=== PATIENT | female | born 1940 | race Caucasian/White ===

== ENCOUNTER 2017-07-25 16:37 | Inpatient (IN) | payer OTHER ==
[~2017-07-25] VITALS: Ht 149.9 cm; Wt 50.0 kg
[~2017-07-25 16:37] MED LIST: CPR250 PO; MULTTAB58 PO; OMEG12006 PO; OMEP20TA PO; SYN75 PO
[2017-07-25] MEDS ORDERED: ONDANSETRON INJ 2 MG/ML 2 ML VIAL IV STA (16:57)
[2017-07-25] MEDS ORDERED: SODIUM CHLORIDE 0.9% 1000ML 1,000 ML IV STA (16:57)
--- NOTE | 2017-07-25 16:58 | EMERGENCY ROOM VISIT NOTE ---
History Report prepared by Maurice: William Jain Under the Supervision of: Stacie HobbsO. First contact with patient: 16:46 Chief Complaint: OTHER COMPLAINT Stated Complaint: DON'T FEEL WELL,BP FLUCTUATING, History of Present Illness The patient is a 77 year old female who presents to the Emergency Room with complaints of a persistent illness that started a few days ago. She says that she has been having chills, with intermittent nausea and shaking. She adds that she was noted to have a fever of 101 in the waiting room. The patient states that she has been having intermittent bilateral flank pain, which she describes as a pressure. She notes that each side has pain that comes on at different times. She says that she has not pain currently, and the last time she had flank pain was earlier this afternoon. The patient says that she thinks she has a virus, but Dr. Rodriguez sent her here because of her current thoracic aortic aneurysm and history of open heart surgery. She denies any cough, chest pain, urinary symptoms, or rashes. Source of History: patient Onset: A few days ago Position: other (global - illness) Timing: other (persistent) Associated Symptoms: + fevers, + chills, + nausea, No cough, No chest pain, No urinary symptoms, No rash Note: Associated symptoms: Shakes. Intermittent bilateral flank pain. Review of Systems See HPI for pertinent positives & negatives. A total of 10 systems reviewed and were otherwise negative. Past Medical & Surgical Medical Problems: (1) Beta-liane intolerance (2) Compression fracture of L1 lumbar vertebra (3) Coronary artery disease (4) Diabetes mellitus type II, controlled (5) Dyslipidemia (6) GERD (gastroesophageal reflux disease) (7) HTN (hypertension) (8) Hypothyroidism (9) Thoracic aneurysm Surgical Problems: (1) H/O hemorrhoidectomy (2) H/O: hysterectomy (3) S/P AAA repair (4) S/P CABG x 3 (5) S/P cholecystectomy Family History Diabetes mellitus FH: heart disease Hypertension Social History Smoking Status: Former Smoker Drug Use: none Marital Status: Occupation Status: employed Current/Historical Medications Scheduled Aspirin (Aspirin), 81 MG PO QAM Calcium Carbonate-Vitamin D (Calcium), 1 TAB PO DAILY Cholecalciferol (Vitamin D 1000 Unit), 1,000 INTER.UNIT PO DAILY Coenzyme Q10 (Ubidecarenone) (Coenzyme Q-10), 100 MG PO QAM Cranberry (Vaccinium Macrocarp (Cranberry), 1,000 MG PO QAM Glucosamine Hydrochloride (Glucosamine Hcl), 1,500 MG PO BID Levothyroxine Sodium (Synthroid), 75 MCG PO QAM Lisinopril (Zestril), 5 MG PO HS Multiple Vitamin (Multivitamin), 1 TABLET PO QAM [place]-3 Fatty Acids ([place] 3), 1 CAPSULE PO BID Omeprazole (Omeprazole), 20 MG PO HS Pravastatin Sodium (Pravastatin Sodium), 80 MG PO HS Probiotic Product (Probiotic), 1 CAP PO DAILY Scheduled PRN Nitroglycerin (Nitrostat), 0.4 MG UT UD PRN for Chest Pain Allergies Coded Allergies: Amlodipine (Verified Allergy, Mild, WEAKNESS, DIZZINESS & SOB, 08/19/16) WEAKNESS, DIZZINESS Penicillins (Verified Allergy, Unknown, TONGUE FEELS FUZZY, 08/19/16) Metoprolol (Verified Adverse Reaction, Mild, WEAKNESS, DIZZINESS, 08/19/16 ) Carvedilol (Verified Adverse Reaction, Unknown, WEAKNESS, DIZZINESS, 08/19) Fluticasone (Unverified Adverse Reaction, Unknown, "PAIN IN MY HEART", ) Gemfibrozil (Verified Adverse Reaction, Unknown, MUSCLE WEAKNESS, 08/19/16 ) MUSCLE WEAKNESS Hydralazine (Verified Adverse Reaction, Unknown, WEAKNESS, DIZZINESS, ) Salmeterol (Unverified Adverse Reaction, Unknown, "PAIN IN MY HEART", ) Statins (Verified Adverse Reaction, Unknown, MUSCLE WEAKNESS, 08/19/16) Physical Exam Vital Signs Date Time Temp Pulse Resp B/P (MAP) Pulse Ox O2 Delivery O2 Flow Rate FiO2 07/25/17 19:04 83 20 141/70 95 Room Air 07/25/17 18:06 80 07/25/17 16:39 37.9 106 20 118/79 91 Room Air Physical Exam GENERAL: Patient is awake, alert, and in no acute distress. Patient is resting comfortably and showing no signs of anxiety EYES: The conjunctivae are clear. The pupils are round and reactive. EARS, NOSE, MOUTH AND THROAT: The nose is without any evidence of any deformity. Mucous membranes are moist tongue is midline NECK: The neck is nontender and supple. RESPIRATORY: Lung sounds were diminished throughout. No tachypnea or conversational dyspnea noted. CARDIOVASCULAR: Regular rate and rhythm noted there no murmurs rubs or gallops normal S1 normal S2 GASTROINTESTINAL: The abdomen is soft. Bowel sounds are present in all quadrants. Abdomen is nontender BACK: No midline tenderness or or step-off noted range of motion in flexion extension as well as rotation no signs of muscle spasm noted MUSCULOSKELETAL/EXTREMITIES: There is no evidence of gross deformity full range of motion is noted in the hips and shoulders SKIN: There is no obvious evidence of any rash. There are no petechiae, pallor or cyanosis noted. NEUROLOGIC: Patient is awake alert and oriented x3 strength is symmetric patellar reflexes are 2+ bilaterally Medical Decision & Procedures ER Provider Diagnostic Interpretation: Radiology results as stated below per my review and radiologist interpretation: CHEST ONE VIEW PORTABLE CLINICAL HISTORY: ABDOMINAL PAIN/GI pain COMPARISON STUDY: 11/18/2013 FINDINGS: Prior median sternotomy. Lungs are clear. Diaphragms are smooth. IMPRESSION: No acute process. The above report was generated using voice recognition software. It may contain grammatical, syntax or spelling errors. Electronically signed by: Gerber Flores M.D. 07/25/2017 5:19 PM Dictated Date/Time: 07/25/2017 5:19 PM ABD/PELVIS NO IV OR ORAL CONT CLINICAL HISTORY: 77 years-old Female presenting with flank pain. TECHNIQUE: Multidetector CT of the abdomen and pelvis was performed without the use of intravenous contrast. IV contrast: None. A dose lowering technique was used consistent with the principles of ALARA (as low as reasonably achievable). COMPARISON: 08/19/2016. CT DOSE (mGy.cm): The estimated cumulative dose is 257.20 mGy.cm. FINDINGS: [employer] topogram: Cholecystectomy clips noted. Lung bases: Dependent and basilar predominant emphysematous changes. Normal heart size. Coronary artery calcification. No pericardial or pleural effusion. Liver: Normal morphology. Normal density. Biliary: No gross biliary ductal dilatation allowing for noncontrast technique. Gallbladder surgically absent. Pancreas: Normal noncontrast appearance. Spleen: Normal noncontrast appearance. Splenule noted. Adrenal glands: Normal noncontrast appearance. Kidneys and ureters: Left perinephric fat stranding new from prior. Mild distention of the left renal collecting system. No gross evidence of an obstructing ureteral calculus. No renal calculi. Bladder: Incompletely evaluated secondary to underdistention. Pelvic organs: Uterus surgically absent. No adnexal masses. Bowel: Diverticulosis of the sigmoid colon. A portion of the antimesenteric wall of the transverse colon is herniated through a wide neck ventral hernia in the epigastrium. No bowel wall thickening or evidence of obstruction. Normal appendix. Small hiatal hernia. Peritoneal cavity: No free fluid or intraperitoneal gas. Vasculature: The descending thoracic aorta is dilated up to the level of the hiatus. This measures 3.8 cm in maximal transverse dimension, previously 4.0 cm when remeasured at a comparable level. Displacement of intimal calcifications is consistent with chronic dissection as seen on prior exam. Postsurgical repair of the infrarenal aorta and common iliac arteries with bilateral iliofemoral bypass grafts would be better visualized with intravenous contrast. Lymph nodes: No gross lymphadenopathy allowing for noncontrast technique. Prominent upper abdominal subcentimeter lymph nodes, possibly reactive. Abdominal wall: Fat and small bowel containing lower ventral midline hernia in addition to the Harrington-type hernia of transverse colon in the epigastrium. Musculoskeletal: Degenerative changes of the spine. Anterior vertebral body height loss of L1 consistent with a compression deformity. Mild osteopenia. This has progressed from prior exam. IMPRESSION: 1. Interval progression of a compression deformity of L1 in setting of mild osteopenia. 2. Left perinephric fat stranding and mild distention of the left renal collecting system without evidence of an obstructing calculus. Given the absence of a renal calculus seen on prior CT, these findings are most concerning for pyelonephritis. This is not well evaluated in the absence of intravenous contrast. 3. Aneurysmal dilatation of the descending thoracic aorta, not enlarged from prior exam. 4. Bilateral iliofemoral bypass grafts would be better evaluated with intravenous contrast. 5. Diverticulosis. No diverticulitis. 6. Multiple ventral hernias without evidence of bowel obstruction. 7. Basilar emphysema. Electronically signed by: Jamal Russell M.D. 07/25/2017 5:53 PM Dictated Date/Time: 07/25/2017 5:41 PM Laboratory Results 07/25/17 17:20 Red Blood Count 4.31, Mean Corpuscular Volume 94.4, Mean Corpuscular Hemoglobin 32.3, Mean Corpuscular Hemoglobin Concent 34.2, Mean Platelet Volume 9.5, Neutrophils (%) (Auto) 81.4, Lymphocytes (%) (Auto) 7.0, Monocytes (%) (Auto) 11.0, Eosinophils (%) (Auto) 0.3, Basophils (%) (Auto) 0.1, Neutrophils # (Auto ) 11.82, Lymphocytes # (Auto) 1.02, Monocytes # (Auto) 1.60, Eosinophils # (Auto ) 0.04, Basophils # (Auto) 0.02 07/25/17 17:20 Test 07/25/17 17:20 07/25/17 17:25 White Blood Count 14.53 K/uL (4.8-10.8) Red Blood Count 4.31 M/uL (4.2-5.4) Hemoglobin 13.9 g/dL (12.0-16.0) Hematocrit 40.7 % (37-47) Mean Corpuscular Volume 94.4 fL (80-100) Mean Corpuscular Hemoglobin 32.3 pg (25-34) Mean Corpuscular Hemoglobin Concent 34.2 g/dl (32-36) Platelet Count 223 K/uL (130-400) Mean Platelet Volume 9.5 fL (7.4-10.4) Neutrophils (%) (Auto) 81.4 % Lymphocytes (%) (Auto) 7.0 % Monocytes (%) (Auto) 11.0 % Eosinophils (%) (Auto) 0.3 % Basophils (%) (Auto) 0.1 % Neutrophils # (Auto) 11.82 K/uL (1.4-6.5) Lymphocytes # (Auto) 1.02 K/uL (1.2-3.4) Monocytes # (Auto) 1.60 K/uL (0.11-0.59) Eosinophils # (Auto) 0.04 K/uL (0-0.5) Basophils # (Auto) 0.02 K/uL (0-0.2) RDW Standard Deviation 46.7 fL (36.4-46.3) RDW Coefficient of Variation 13.5 % (11.5-14.5) Immature Granulocyte % (Auto) 0.2 % Immature Granulocyte # (Auto) 0.03 K/uL (0.00-0.02) Prothrombin Time 11.9 SECONDS (9.0-12.0) Prothromb Time International Ratio 1.1 (0.9-1.1) Activated Partial Thromboplast Time 30.3 SECONDS (21.0-31.0) Partial Thromboplastin Ratio 1.2 Anion Gap 9.0 mmol/L (3-11) Est Creatinine Clear Calc Drug Dose 31.6 ml/min Estimated GFR () 62.5 Estimated GFR (Non- 53.9 BUN/Creatinine Ratio 17.2 (10-20) Calcium Level 9.3 mg/dl (8.5-10.1) Magnesium Level 2.4 mg/dl (1.8-2.4) Total Bilirubin 0.8 mg/dl (0.2-1) Direct Bilirubin 0.2 mg/dl (0-0.2) Aspartate Amino Transf (AST/SGOT) 19 U/L (15-37) Alanine Aminotransferase (ALT/SGPT) 17 U/L (12-78) Alkaline Phosphatase 101 U/L (45-117) Total Creatine Kinase 86 U/L (26-192) Creatine Kinase MB 0.6 ng/ml (0.5-3.6) Creatine Kinase MB Ratio 0.7 (0-3.0) Troponin I < 0.015 ng/ml (0-0.045) Total Protein 7.7 gm/dl (6.4-8.2) Albumin 3.5 gm/dl (3.4-5.0) Lipase 152 U/L (73-393) Urine Color YELLOW Urine Appearance CLOUDY (CLEAR) Urine pH 5.5 (4.5-7.5) Urine Specific [place] 1.023 (1.000-1.030) Urine Protein 2+ (NEG) Urine Glucose (UA) NEG (NEG) Urine Ketones TRACE (NEG) Urine Occult Blood 2+ (NEG) Urine Nitrite POS (NEG) Urine Bilirubin NEG (NEG) Urine Urobilinogen NEG (NEG) Urine Leukocyte Esterase MODERATE (NEG) Urine WBC (Auto) >30 /hpf (0-5) Urine RBC (Auto) 10-30 /hpf (0-4) Urine Hyaline Casts (Auto) 1-5 /lpf (0-5) Urine Epithelial Cells (Auto) 10-20 /lpf (0-5) Urine Bacteria (Auto) 4+ (NEG) Laboratory results per my review. Medications Administered Medications (Trade) Dose Ordered Sig/Adolfo Route Start Time Stop Time Status Last Admin Dose Admin Sodium Chloride 1,000 ml @ 999 mls/hr Q1H1M STAT IV 07/25/17 16:57 07/25/17 17:57 DC 07/25/17 17:28 999 MLS/HR Ondansetron HCl (Zofran Inj) 4 mg NOW STAT IV 07/25/17 16:57 07/25/17 16:59 DC 07/25/17 17:28 4 MG Levofloxacin (Levaquin / D5W) 750 mg NOW STAT IV 07/25/17 18:10 07/25/17 18:12 DC 07/25/17 18:16 750 MG ECG Indication: nausea Rate (beats per minute): 89 Rhythm: normal sinus Findings: no ectopy, other (no acute ST segment abnormalities) Change: no significant change (from August 21 2016) ED Course 1651: The patient was evaluated in room B2. A complete history and physical examination were performed. 165: Ordered Zofran Inj 4 mg IV, NSS 1000 ml @ 999 mls/hr IV. 1809: Ordered Levaquin / D5W 750 mg IV. 1850: I reevaluated the patient and she is resting. The patient verbally expressed understanding and agreement with the treatment plan. The patient will be evaluated for further treatment. 1854: I discussed the patient with Dr. Dago Carlos director [employer]. She will evaluate the patient for further treatment. Medical Decision Differential diagnosis: Etiologies such as metabolic, infection, hypo/hyperglycemia, electrolyte abnormalities, cardiac sources, intracerebral event, toxicologic, neurologic, as well as others were entertained. Nursing notes reviewed. The patient is a 77-year-old female who presented to the emergency department for an evaluation of chills and low-grade fever. The patient states that she's been feeling weak and did not feel well over the last 24 hours. The patient states that she has had difficulty urinating and felt as though she was drinking more fluids than usual. The patient did not have a surgical abdomen on physical exam. The patient had a low-grade fever. The patient was found have an elevated white blood cell count as well as signs of urinary tract infection on urinalysis. Because of her symptoms and her back pain a CT the abdomen and pelvis was obtained. This did reveal signs of pyelonephritis. The patient was given IV fluids and IV antibiotics the emergency department. She was reevaluated multiple times. The patient's age and comorbidities I was concerned that she may have a complicated pyelonephritis. For this reason I discussed her case with the on-call [facility] hospitalist group. They've agreed to evaluate the patient in the emergency department for further management and disposition. Medication Reconcilliation Current Medication List: was personally reviewed by me Blood Pressure Screening Patient's blood pressure: Normal blood pressure Consults Time Called: 1849 Consulting Physician: Dr. Dago Carlos director [employer] Returned Call: 1853 I discussed the patient with Dr. Dago Carlos director [employer]. She will evaluate the patient for further treatment. Impression Primary Impression: Pyelonephritis Additional Impressions: Fever Weakness Scribe Attestation The scribe's documentation has been prepared under my direction and personally reviewed by me in its entirety. I confirm that the note above accurately reflects all work, treatment, procedures, and medical decision making performed by me. Departure Information Dispostion Being Evaluated By Hospitalist Referrals Raza Rodriguez D.O. (PCP) Patient Instructions My [facility] Problem Qualifiers Additional Impressions: Fever Fever type: unspecified Qualified Codes: R50.9 - Fever, unspecified
--- NOTE | 2017-07-25 17:21 | DIAGNOSTIC IMAGING REPORT ---
CHEST ONE VIEW PORTABLE CLINICAL HISTORY: ABDOMINAL PAIN/GI pain COMPARISON STUDY: 11/18/2013 FINDINGS: Prior median sternotomy. Lungs are clear. Diaphragms are smooth. IMPRESSION: No acute process. The above report was generated using voice recognition software. It may contain grammatical, syntax or spelling errors. Electronically signed by: Gerber Flores M.D. 07/25/2017 5:19 PM Dictated Date/Time: 07/25/2017 5:19 PM
[2017-07-25] MEDS ORDERED: COEN100C2 PO (17:23)
[2017-07-25] MEDS ORDERED: GLUC1TAB33 PO (17:23)
[2017-07-25] MEDS ORDERED: NTRGSL/4 UT (17:23)
[2017-07-25] MEDS ORDERED: LISI-729 PO (17:23)
[2017-07-25] MEDS ORDERED: CRAN500C2 PO (17:23)
[2017-07-25] MEDS ORDERED: ASPI1TAB83 PO (17:23)
[2017-07-25] MEDS ORDERED: PRAV80TA2 PO (17:23)
[2017-07-25 17:31] LABS: BASO % 0.1 %; BASO ABS # 0.02 K/uL (0-0.2); COMPLETE YES; EOS % 0.3 %; HEMATOCRIT 40.7 % (37-47); IG% 0.2 %; LYMPH ABS # 1.02 K/uL (1.2-3.4); MEAN CELL VOLUME 94.4 fL (80-100); MEAN CORPUSCULAR HEMOGLOBIN 32.3 pg (25-34); MEAN CORPUSCULAR HGB CONC 34.2 g/dl (32-36); MEAN PLATELET VOLUME 9.5 fL (7.4-10.4); NEUT % 81.4 %; PLATELET COUNT 223 K/uL (130-400); RED BLOOD COUNT 4.31 M/uL (4.2-5.4); WHITE BLOOD COUNT 14.53 K/uL (4.8-10.8)
[2017-07-25 17:43] LABS: INR 1.1 (0.9-1.1); PARTIAL THROMBOPLASTIN RATIO 1.2; PROTHROMBIN TIME (PATIENT) 11.9 SECONDS (9.0-12.0)
[2017-07-25 17:50] LABS: ALT/SGPT 17 U/L (12-78); BLOOD UREA NITROGEN 17 mg/dl (7-18); BUN/CREATININE RATIO 17.2 (10-20); CALCIUM 9.3 mg/dl (8.5-10.1); CARBON DIOXIDE 26 mmol/L (21-32); CHLORIDE 98 mmol/L (98-107); GLUCOSE 123 mg/dl (70-99); MAGNESIUM 2.4 mg/dl (1.8-2.4); POTASSIUM 3.7 mmol/L (3.5-5.1); SODIUM 133 mmol/L (136-145)
[2017-07-25 17:53] LABS: ALKALINE PHOSPHATASE 101 U/L (45-117); AST/SGOT 19 U/L (15-37); CKMB/CK RATIO 0.7 (0-3.0)
[2017-07-25 17:54] LABS: URINE APPEARANCE CLOUDY (CLEAR); URINE BILIRUBIN NEG (NEG); URINE COLOR YELLOW; URINE NITRITE POS (NEG); URINE PH 5.5 (4.5-7.5); URINE SPECIFIC GRAVITY 1.023 (1.000-1.030); UROBILINOGEN NEG (NEG)
--- NOTE | 2017-07-25 17:55 | DIAGNOSTIC IMAGING REPORT ---
ABD/PELVIS NO IV OR ORAL CONT CLINICAL HISTORY: 77 years-old Female presenting with flank pain. TECHNIQUE: Multidetector CT of the abdomen and pelvis was performed without the use of intravenous contrast. IV contrast: None. A dose lowering technique was used consistent with the principles of ALARA (as low as reasonably achievable). COMPARISON: 08/19/2016. CT DOSE (mGy.cm): The estimated cumulative dose is 257.20 mGy.cm. FINDINGS: [employer] topogram: Cholecystectomy clips noted. Lung bases: Dependent and basilar predominant emphysematous changes. Normal heart size. Coronary artery calcification. No pericardial or pleural effusion. Liver: Normal morphology. Normal density. Biliary: No gross biliary ductal dilatation allowing for noncontrast technique. Gallbladder surgically absent. Pancreas: Normal noncontrast appearance. Spleen: Normal noncontrast appearance. Splenule noted. Adrenal glands: Normal noncontrast appearance. Kidneys and ureters: Left perinephric fat stranding new from prior. Mild distention of the left renal collecting system. No gross evidence of an obstructing ureteral calculus. No renal calculi. Bladder: Incompletely evaluated secondary to underdistention. Pelvic organs: Uterus surgically absent. No adnexal masses. Bowel: Diverticulosis of the sigmoid colon. A portion of the antimesenteric wall of the transverse colon is herniated through a wide neck ventral hernia in the epigastrium. No bowel wall thickening or evidence of obstruction. Normal appendix. Small hiatal hernia. Peritoneal cavity: No free fluid or intraperitoneal gas. Vasculature: The descending thoracic aorta is dilated up to the level of the hiatus. This measures 3.8 cm in maximal transverse dimension, previously 4.0 cm when remeasured at a comparable level. Displacement of intimal calcifications is consistent with chronic dissection as seen on prior exam. Postsurgical repair of the infrarenal aorta and common iliac arteries with bilateral iliofemoral bypass grafts would be better visualized with intravenous contrast. Lymph nodes: No gross lymphadenopathy allowing for noncontrast technique. Prominent upper abdominal subcentimeter lymph nodes, possibly reactive. Abdominal wall: Fat and small bowel containing lower ventral midline hernia in addition to the Harrington-type hernia of transverse colon in the epigastrium. Musculoskeletal: Degenerative changes of the spine. Anterior vertebral body height loss of L1 consistent with a compression deformity. Mild osteopenia. This has progressed from prior exam. IMPRESSION: 1. Interval progression of a compression deformity of L1 in setting of mild osteopenia. 2. Left perinephric fat stranding and mild distention of the left renal collecting system without evidence of an obstructing calculus. Given the absence of a renal calculus seen on prior CT, these findings are most concerning for pyelonephritis. This is not well evaluated in the absence of intravenous contrast. 3. Aneurysmal dilatation of the descending thoracic aorta, not enlarged from prior exam. 4. Bilateral iliofemoral bypass grafts would be better evaluated with intravenous contrast. 5. Diverticulosis. No diverticulitis. 6. Multiple ventral hernias without evidence of bowel obstruction. 7. Basilar emphysema. Electronically signed by: Jamal Russell M.D. 07/25/2017 5:53 PM Dictated Date/Time: 07/25/2017 5:41 PM
[2017-07-25 17:59] LABS: MANUAL MICROSCOPIC REQUIRED? NO; REVIEW REQ? NO
[2017-07-25] MEDS ORDERED: LEVAQUIN 750MG / 150ML D5W IV STA (18:10)
[2017-07-25] MEDS ORDERED: CHOL100027 PO (18:49)
[2017-07-25] MEDS ORDERED: MISCCAP80 PO (18:49)
[2017-07-25] MEDS ORDERED: CALC-51 PO (18:49)
--- NOTE | 2017-07-25 19:23 | History and Physical ---
History & Physical Date & Time of Service: Jul 25, 2017 at 19:23 . Chief Complaint: fever, chills . Primary Care Physician: Raza Rodriguez D.O. . History of Present Illness Source: patient, family, clinic records, hospital records 77 [address]O female followed by Dr. Rodriguez. History of ischemic heart disease, hypertension, and other problems noted below. She was in her usual state of health until 2 days prior to admission when she developed low grade fever and chills. No headache, cough, nausea, vomiting, diarrhea, dysuria, hematuria, flank pain. [place] worse this morning and checked her BP and pulse at home. Pulse rate was running relatively high for her (80's - 90's) and BP was fluctuating. She called the clinic and was referred to the ED for evaluation. . Past Medical/Surgical History Chronic and Resolved Medical Problems: (1) Beta-liane intolerance Status: Chronic (2) Coronary artery disease Permanent Comment: s/p cabg x 3 Status: Chronic (3) Diabetes mellitus type II, controlled Permanent Comment: diet controlled Status: Chronic (4) Dyslipidemia Status: Chronic (5) GERD (gastroesophageal reflux disease) Status: Chronic (6) HTN (hypertension) Status: Chronic (7) Hypothyroidism Status: Chronic (8) Thoracic aneurysm Status: Chronic Surgical Problems: (1) H/O hemorrhoidectomy Status: Resolved (2) H/O: hysterectomy Status: Resolved (3) S/P AAA repair Status: Resolved (4) S/P CABG x 3 Status: Resolved (5) S/P cholecystectomy Status: Resolved . Family History Diabetes mellitus FH: heart disease Hypertension Social History Smoking Status: Former Smoker Alcohol Use: none Drug Use: none Marital Status: Housing status: lives with significant other Occupational Status: employed Immunizations History of Influenza Vaccine: Yes Influenza Vaccine Date: Aug 03, 2013 History of Tetanus Vaccine?: Unknown Tetanus Immunization Date: Jan 21, 2008 History of Pneumococcal: UNSURE OF DATE Pneumococcal Date: Jan 21, 2008 History of Hepatitis B Vaccine: Unknown Multi-Drug Resistant Organisms History of MDRO: No Allergies Coded Allergies: Amlodipine (Verified Allergy, Mild, WEAKNESS, DIZZINESS & SOB, 08/19/16) WEAKNESS, DIZZINESS Penicillins (Verified Allergy, Unknown, TONGUE FEELS FUZZY, 08/19/16) Metoprolol (Verified Adverse Reaction, Mild, WEAKNESS, DIZZINESS, 08/19/16 ) Carvedilol (Verified Adverse Reaction, Unknown, WEAKNESS, DIZZINESS, 08/19) Fluticasone (Unverified Adverse Reaction, Unknown, "PAIN IN MY HEART", ) Gemfibrozil (Verified Adverse Reaction, Unknown, MUSCLE WEAKNESS, 08/19/16 ) MUSCLE WEAKNESS Hydralazine (Verified Adverse Reaction, Unknown, WEAKNESS, DIZZINESS, ) Salmeterol (Unverified Adverse Reaction, Unknown, "PAIN IN MY HEART", ) Statins (Verified Adverse Reaction, Unknown, MUSCLE WEAKNESS, 08/19/16) Home Medications Scheduled Aspirin (Aspirin), 81 MG PO QAM Calcium Carbonate-Vitamin D (Calcium), 1 TAB PO DAILY Cholecalciferol (Vitamin D 1000 Unit), 1,000 INTER.UNIT PO DAILY Coenzyme Q10 (Ubidecarenone) (Coenzyme Q-10), 100 MG PO QAM Cranberry (Vaccinium Macrocarp (Cranberry), 1,000 MG PO QAM Glucosamine Hydrochloride (Glucosamine Hcl), 1,500 MG PO BID Levothyroxine Sodium (Synthroid), 75 MCG PO QAM Lisinopril (Zestril), 5 MG PO DAILY Multiple Vitamin (Multivitamin), 1 TABLET PO QAM [place]-3 Fatty Acids ([place] 3), 1 CAPSULE PO BID Omeprazole (Omeprazole), 20 MG PO HS Pravastatin Sodium (Pravastatin Sodium), 80 MG PO HS Probiotic Product (Probiotic), 1 CAP PO DAILY Scheduled PRN Nitroglycerin (Nitrostat), 0.4 MG UT UD PRN for Chest Pain Review of Systems Constitutional: + fever, + chills, + weight loss (about 20 lbs) Eyes: No worsening of vision, No diplopia ENT: + sore throat (mild), No nasal symptoms Respiratory: + cough (rare), No shortness of breath Cardiovascular: No chest pain, No edema Abdomen: No pain, No nausea, No vomiting, No diarrhea, No GI bleeding Musculoskeletal: No joint pain Genitourinary - Female: No dysuria, No hematuria Endocrine: No excessive thirst Hematologic / Lymphatic: + abnormal bleeding/bruising, No swollen lymph nodes Integumentary: No rash, No new/changing skin lesions Physical Exam Vital Signs Date Time Temp Pulse Resp B/P (MAP) Pulse Ox O2 Delivery O2 Flow Rate FiO2 07/25/17 19:04 83 20 141/70 95 Room Air 07/25/17 18:06 80 07/25/17 16:39 37.9 106 20 118/79 91 Room Air General Appearance: WD/WN, no apparent distress Head: normocephalic, atraumatic Eyes: normal inspection, PERRL, EOMI, sclerae normal (conjunctivae pink) ENT: hearing grossly normal, pharynx normal, + pertinent finding (upper and lower dentures) Neck: supple, no adenopathy, thyroid normal, no JVD, trachea midline Respiratory/Chest: lungs clear, no respiratory distress, no accessory muscle use Cardiovascular: regular rate, rhythm, no edema, no gallop, no JVD, no murmur, normal peripheral pulses Abdomen/GI: normal bowel sounds, non tender, soft, no organomegaly Back: no CVA tenderness Extremities/Musculoskelatal: normal inspection, no calf tenderness, normal capillary refill, no pedal edema Neurologic/Psych: machine 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-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 nml as tested (PERRL, EOMI, no facial palsy, no dysarhtria), no motor/sensory deficits, alert, normal mood/affect, normal reflexes, oriented x 3 Skin: normal color, warm/dry, no rash Lymphatic: no adenopathy (cervical) Diagnostics Laboratory Results Results Past 24 Hours Test 07/25/17 17:20 07/25/17 17:25 Range/Units White Blood Count 14.53 4.8-10.8 K/uL Red Blood Count 4.31 4.2-5.4 M/uL Hemoglobin 13.9 12.0-16.0 g/dL Hematocrit 40.7 37-47 % Mean Corpuscular Volume 94.4 80-100 fL Mean Corpuscular Hemoglobin 32.3 25-34 pg Mean Corpuscular Hemoglobin Concent 34.2 32-36 g/dl Platelet Count 223 130-400 K/uL Mean Platelet Volume 9.5 7.4-10.4 fL Neutrophils (%) (Auto) 81.4 % Lymphocytes (%) (Auto) 7.0 % Monocytes (%) (Auto) 11.0 % Eosinophils (%) (Auto) 0.3 % Basophils (%) (Auto) 0.1 % Neutrophils # (Auto) 11.82 1.4-6.5 K/uL Lymphocytes # (Auto) 1.02 1.2-3.4 K/uL Monocytes # (Auto) 1.60 0.11-0.59 K/uL Eosinophils # (Auto) 0.04 0-0.5 K/uL Basophils # (Auto) 0.02 0-0.2 K/uL RDW Standard Deviation 46.7 36.4-46.3 fL RDW Coefficient of Variation 13.5 11.5-14.5 % Immature Granulocyte % (Auto) 0.2 % Immature Granulocyte # (Auto) 0.03 0.00-0.02 K/uL Prothrombin Time 11.9 9.0-12.0 SECONDS Prothromb Time International Ratio 1.1 0.9-1.1 Activated Partial Thromboplast Time 30.3 21.0-31.0 SECONDS Partial Thromboplastin Ratio 1.2 Sodium Level 133 136-145 mmol/L Potassium Level 3.7 3.5-5.1 mmol/L Chloride Level 98 98-107 mmol/L Carbon Dioxide Level 26 21-32 mmol/L Anion Gap 9.0 3-11 mmol/L Blood Urea Nitrogen 17 7-18 mg/dl Creatinine 1.00 0.60-1.20 mg/dl Est Creatinine Clear Calc Drug Dose 31.6 ml/min Estimated GFR () 62.5 Estimated GFR (Non- 53.9 BUN/Creatinine Ratio 17.2 10-20 Random Glucose 123 70-99 mg/dl Calcium Level 9.3 8.5-10.1 mg/dl Magnesium Level 2.4 1.8-2.4 mg/dl Total Bilirubin 0.8 0.2-1 mg/dl Direct Bilirubin 0.2 0-0.2 mg/dl Aspartate Amino Transf (AST/SGOT) 19 15-37 U/L Alanine Aminotransferase (ALT/SGPT) 17 12-78 U/L Alkaline Phosphatase 101 45-117 U/L Total Creatine Kinase 86 26-192 U/L Creatine Kinase MB 0.6 0.5-3.6 ng/ml Creatine Kinase MB Ratio 0.7 0-3.0 Troponin I < 0.015 0-0.045 ng/ml Total Protein 7.7 6.4-8.2 gm/dl Albumin 3.5 3.4-5.0 gm/dl Lipase 152 73-393 U/L Urine Color YELLOW Urine Appearance CLOUDY CLEAR Urine pH 5.5 4.5-7.5 Urine Specific [place] 1.023 1.000-1.030 Urine Protein 2+ NEG Urine Glucose (UA) NEG NEG Urine Ketones TRACE NEG Urine Occult Blood 2+ NEG Urine Nitrite POS NEG Urine Bilirubin NEG NEG Urine Urobilinogen NEG NEG Urine Leukocyte Esterase MODERATE NEG Urine WBC (Auto) >30 0-5 /hpf Urine RBC (Auto) 10-30 0-4 /hpf Urine Hyaline Casts (Auto) 1-5 0-5 /lpf Urine Epithelial Cells (Auto) 10-20 0-5 /lpf Urine Bacteria (Auto) 4+ NEG Microbiology Results 07/25/17 Urine Culture, Received Pending Diagnostic Radiology CHEST ONE VIEW PORTABLE FINDINGS: Prior median sternotomy. Lungs are clear. Diaphragms are smooth. IMPRESSION: No acute process. The above report was generated using voice recognition software. It may contain grammatical, syntax or spelling errors. Electronically signed by: Gerber Flores M.D. 07/25/2017 5:19 PM Dictated Date/Time: 07/25/2017 5:19 PM ABD/PELVIS NO IV OR ORAL CONT FINDINGS: Wrapper Leaf Inspector topogram: Cholecystectomy clips noted. Lung bases: Dependent and basilar predominant emphysematous changes. Normal heart size. Coronary artery calcification. No pericardial or pleural effusion. Liver: Normal morphology. Normal density. Biliary: No gross biliary ductal dilatation allowing for noncontrast technique. Gallbladder surgically absent. Pancreas: Normal noncontrast appearance. Spleen: Normal noncontrast appearance. Splenule noted. Adrenal glands: Normal noncontrast appearance. Kidneys and ureters: Left perinephric fat stranding new from prior. Mild distention of the left renal collecting system. No gross evidence of an obstructing ureteral calculus. No renal calculi. Bladder: Incompletely evaluated secondary to underdistention. Pelvic organs: Uterus surgically absent. No adnexal masses. Bowel: Diverticulosis of the sigmoid colon. A portion of the antimesenteric wall of the transverse colon is herniated through a wide neck ventral hernia in the epigastrium. No bowel wall thickening or evidence of obstruction. Normal appendix. Small hiatal hernia. Peritoneal cavity: No free fluid or intraperitoneal gas. Vasculature: The descending thoracic aorta is dilated up to the level of the hiatus. This measures 3.8 cm in maximal transverse dimension, previously 4.0 cm when remeasured at a comparable level. Displacement of intimal calcifications is consistent with chronic dissection as seen on prior exam. Postsurgical repair of the infrarenal aorta and common iliac arteries with bilateral iliofemoral bypass grafts would be better visualized with intravenous contrast. Lymph nodes: No gross lymphadenopathy allowing for noncontrast technique. Prominent upper abdominal subcentimeter lymph nodes, possibly reactive. Abdominal wall: Fat and small bowel containing lower ventral midline hernia in addition to the [place]-type hernia of transverse colon in the epigastrium. Musculoskeletal: Degenerative changes of the spine. Anterior vertebral body height loss of L1 consistent with a compression deformity. Mild osteopenia. This has progressed from prior exam. IMPRESSION: 1. Interval progression of a compression deformity of L1 in setting of mild osteopenia. 2. Left perinephric fat stranding and mild distention of the left renal collecting system without evidence of an obstructing calculus. Given the absence of a renal calculus seen on prior CT, these findings are most concerning for pyelonephritis. This is not well evaluated in the absence of intravenous contrast. 3. Aneurysmal dilatation of the descending thoracic aorta, not enlarged from prior exam. 4. Bilateral iliofemoral bypass grafts would be better evaluated with intravenous contrast. 5. Diverticulosis. No diverticulitis. 6. Multiple ventral hernias without evidence of bowel obstruction. 7. Basilar emphysema. Electronically signed by: Jamal Russell M.D. 07/25/2017 5:53 PM Dictated Date/Time: 07/25/2017 5:41 PM . EKG EKG performed at 17:13 reviewed and demonstrated NSR at 90 / minute, biphasic T- waves I, inverted T-waves aVL.. . Impression Assessment and Plan PYELONEPHRITIS Pt presented to ED with low grade temp and chills. No urinary symptoms, but UA shows WBC's and bacteria and CT consistent with pyelonephritis without obstruction. Does not appear to be septic. Urine culture sent from ED and levofloxacin administered. Continue levofloxacin pending culture results. CAD No anginal symptoms. Intolerant of beta blockers. Continue aspirin. HYPERTENSION Continue lisinopril with hold parameters. DM TYPE 2 Diet controlled. FBS 123 in ED. VTE PROPHYLAXIS Moderate risk. SQ enoxaparin. Ambulate. RESUSCITATION STATUS Discussed with patient. She has a living will. She would like resuscitation attempted in the event of a cardiopulmonary arrest if there is a reasonable chance of a meaningful recovery, but does not want prolonged extraordinary measures if prognosis is poor. Therefore, code status = "Level 1" (full resuscitation). DISPOSITION Admit to Med-Surg Unit. Expected discharge to home. Internal Medicine follow-up with Dr. Rodriguez. . VTE Prophylaxis Given or contraindicated: Enoxaparin (Lovenox)SQ
[2017-07-25] MEDS ORDERED: ACETAMINOPHEN 325 MG TAB PO PRN (19:30)
[2017-07-25 19:40] VITALS: BP 155/79; PULSE 108; TEMP 37.6; O2SAT 92
[2017-07-25 21:12] VITALS: BP 148/84; PULSE 108; TEMP 37.6; O2SAT 91; Ht 149.9 cm; Wt 50.0 kg
[2017-07-25] MEDS ORDERED: INFLUENZA VACCINE HIGH DOSE 65+ 0.5 ML SYR IM. ONE (21:30)
[2017-07-25] MEDS ORDERED: INFLUENZA ADMINISTRATION CHARGE ONE (21:30)
[2017-07-25] MEDS: ENOXAPARIN 40 MG/0.4 ML SYR SQ SCH (22:12)
[2017-07-25] MEDS ORDERED: NITROGLYCERIN 0.4 MG SL PER TAB CHARGE UT PRN (23:15)
[2017-07-25 23:53] VITALS: BP 114/73; PULSE 78; TEMP 36.9; O2SAT 92
[2017-07-26] MEDS: SODIUM CHLORIDE 0.9% 1000ML 1,000 ML IV SCH ×2 (05:54→16:01)
[2017-07-26] MEDS: LEVOTHYROXINE 75 MCG TAB PO SCH (05:55)
[2017-07-26 06:23] LABS: MEAN CELL VOLUME 94.7 fL (80-100); MEAN CORPUSCULAR HEMOGLOBIN 31.1 pg (25-34); MEAN CORPUSCULAR HGB CONC 32.8 g/dl (32-36); MEAN PLATELET VOLUME 9.7 fL (7.4-10.4); PLATELET COUNT 217 K/uL (130-400); RED BLOOD COUNT 4.12 M/uL (4.2-5.4); WHITE BLOOD COUNT 11.79 K/uL (4.8-10.8)
[2017-07-26 07:11] LABS: BUN/CREATININE RATIO 14.4 (10-20); CALCIUM 8.7 mg/dl (8.5-10.1); CREATININE 0.87 mg/dl (0.60-1.20); POTASSIUM 3.9 mmol/L (3.5-5.1)
[2017-07-26 07:30] VITALS: BP 117/65; PULSE 69; TEMP 37.6; O2SAT 95
[2017-07-26] MEDS: LACTOBACILLUS ACIDOPHILUS (FLORANEX) TAB PO SCH ×3 (07:40→16:02)
[2017-07-26] MEDS: ASPIRIN 81 MG ECTAB PO SCH (07:40)
[2017-07-26] MEDS: CHOLECALCIFEROL 1000 INTER.UNIT TAB PO SCH (07:41)
[2017-07-26] MEDS: LISINOPRIL 5 MG TAB PO SCH (07:41)
[2017-07-26] MEDS: MULTIVITAMIN TAB PO SCH (07:41)
[2017-07-26 14:50] VITALS: BP 96/54; PULSE 67; TEMP 36.9; O2SAT 94
[2017-07-26 16:00] VITALS: O2SAT 94
[2017-07-26] MEDS ORDERED: LEVOFLOXACIN / D5W 500 MG in PREMIXED IN D5W 100 ML IV SCH (18:00)
--- NOTE | 2017-07-26 18:31 | Progress Note ---
Internal Med Progress Note Date of Service: Jul 26, 2017. Provider Documentation: SUBJECTIVE: feels much better today no fever or chills , no nausea no urinary symptom , mentions she never gets urinary symptoms -her presentation was more fatigue , weakness , nausea concerned that lack of symptom her urinary infection may some times remains un detected pt mentions of drinking plenty of fluids , follow hygiene for wiping to prevent UTI still this is her 3rd episode this year pt is counselled in elderly typical symptoms of UTI not always present but as long as she is aware that -feeling of nausea , lack of appetite could be possible UTI she should call her Family physician as early as possible have simple out pt urine test and start on antibiotic -which may prevent hospital admission OBJECTIVE: Vital Signs-as noted below Exam: General-no sign of distress Eyes-sclera non icteric ENT-NAD Neck-no JVD Lungs-CTA , no wheeze or rales Heart-regular s1/S2 Abdomen-soft ,non tender , no CVA tenderness , no suprapubic tenderness Extremities-no lower ext edema Neuro-AAO x3, no focal deficit Lab data as noted below. ASSESSMENT & PLAN: PYELONEPHRITIS/UTI Pt presented to ED with low grade temp and chills. CT abdomen /pelvis: Left perinephric fat stranding and mild distention of the left renal collecting system without evidence of an obstructing calculus. Given the absence of a renal calculus seen on prior CT, these findings are most concerning for pyelonephritis. Urine culture -E coli -sensitivity pending Abx changed to PO Ciprofloxacin will need total 5 days tx HYPONATREMIA : due to dehydration /poor PO intake Na level improving cont IVF repeat PRP in AM CAD stable Continue aspirin. HYPERTENSION Continue lisinopril DM TYPE 2 Diet controlled. VTE PROPHYLAXIS Moderate risk. SQ enoxaparin. Ambulate. RESUSCITATION STATUS code status = "Level 1" (full resuscitation). DISPOSITION Expected discharge to home. Internal Medicine follow-up with Dr. Rodriguez. . Vital Signs: Date Time Temp Pulse Resp B/P (MAP) Pulse Ox O2 Delivery O2 Flow Rate FiO2 07/27/17 08:00 94 Room Air 07/27/17 07:19 37.2 67 16 136/67 (90) 94 Room Air 07/27/17 00:00 Room Air 07/26/17 22:42 37.0 73 18 129/71 (90) 93 Room Air 07/26/17 16:00 94 Room Air 07/26/17 14:50 36.9 67 18 96/54 (68) 94 Room Air Lab Results: Results Past 24 Hours Test 07/27/17 05:15 Range/Units Sodium Level 141 136-145 mmol/L Potassium Level 3.9 3.5-5.1 mmol/L Chloride Level 110 98-107 mmol/L Carbon Dioxide Level 23 21-32 mmol/L Anion Gap 8.0 3-11 mmol/L Blood Urea Nitrogen 14 7-18 mg/dl Creatinine 0.74 0.60-1.20 mg/dl Est Creatinine Clear Calc Drug Dose 42.8 ml/min Estimated GFR () 89.9 Estimated GFR (Non- 77.6 BUN/Creatinine Ratio 18.5 10-20 Random Glucose 92 70-99 mg/dl Calcium Level 8.0 8.5-10.1 mg/dl
[2017-07-26] MEDS: CIPROFLOXACIN 500 MG TAB PO SCH (20:45)
[2017-07-26] MEDS: ENOXAPARIN 40 MG/0.4 ML SYR SQ SCH (20:46)
[2017-07-26] MEDS ORDERED: PANTOprazole SOD 40 MG TAB PO SCH (21:00)
[2017-07-26] MEDS ORDERED: LISINOPRIL 5 MG TAB PO SCH (21:00)
[2017-07-26] MEDS ORDERED: PRAVASTATIN SOD 40 MG TAB PO SCH (21:00)
[2017-07-26 22:42] VITALS: BP 129/71; PULSE 73; TEMP 37; O2SAT 93
[2017-07-27] MEDS: SODIUM CHLORIDE 0.9% 1000ML 1,000 ML IV SCH (02:06)
[2017-07-27] MEDS: LEVOTHYROXINE 75 MCG TAB PO SCH (05:21)
[2017-07-27 06:29] LABS: BUN/CREATININE RATIO 18.5 (10-20); CREATININE 0.74 mg/dl (0.60-1.20); POTASSIUM 3.9 mmol/L (3.5-5.1)
[2017-07-27 07:19] VITALS: BP 136/67; PULSE 67; TEMP 37.2; O2SAT 94
[2017-07-27 08:00] VITALS: O2SAT 94
[2017-07-27] MEDS: LACTOBACILLUS ACIDOPHILUS (FLORANEX) TAB PO SCH ×2 (08:04→11:45)
[2017-07-27] MEDS: MULTIVITAMIN TAB PO SCH (10:24)
[2017-07-27] MEDS: ASPIRIN 81 MG ECTAB PO SCH (10:24)
[2017-07-27] MEDS: CIPROFLOXACIN 500 MG TAB PO SCH (10:24)
[2017-07-27] MEDS: CHOLECALCIFEROL 1000 INTER.UNIT TAB PO SCH (10:25)
[2017-07-27] MEDS: LISINOPRIL 5 MG TAB PO SCH (10:25)
[2017-07-27] MEDS ORDERED: CPR500 PO (12:09)
--- NOTE | 2017-07-27 12:29 | Discharge Instructions ---
Discharge Instructions Date of Service Jul 27, 2017. Admission Reason for Admission: Pyelonephritis Discharge Discharge Diagnosis / Problem: UTI /PYELONEPHRITIS Discharge Goals Goal(s): Decrease discomfort, Improve disease control, Diagnostic testing, Therapeutic intervention Activity Recommendations Activity Limitations: resume your previous activity . Instructions / Follow-Up Instructions / Follow-Up HOSPITAL FOLLOW UP : WITH DR MILLER IN A WEEK , OFFICE WILL CALL WITH APPOINTMENT Current Hospital Diet Patient's current hospital diet: AHA Diet (Heart Healthy) Discharge Diet Recommended Diet: AHA Diet (Heart Healthy) Pending Studies Studies pending at discharge: no Medical Emergencies . Who to Call and When: Medical Emergencies: If at any time you feel your situation is an emergency, please call 911 immediately. . Non-Emergent Contact Non-Emergency issues call your: Primary Care Provider . . "Provider Documentation" section prepared by Kamilla Weldon. . VTE Core Measure Inpt VTE Proph given/why not?: Enoxaparin (Lovenox)SQ
[2017-07-27 14:16] VITALS: BP 136/67; PULSE 67; TEMP 37.2; O2SAT 94
--- NOTE | 2017-07-27 16:14 | Discharge Summary ---
Discharge Summary Date of Service Jul 27, 2017. Discharge Summary Admission Date: Jul 25, 2017 at 19:25 Discharge Date: Jul 27, 2017 Discharge Disposition: Home Principal Diagnosis: UTI /PYELONEPHRITIS Medication Reconciliation New Medications: Ciprofloxacin (Ciprofloxacin HCl) 500 Mg Tab 500 MG PO BID for 4 Days, #8 TAB Continued Medications: Aspirin (Aspirin) 81 Mg Tab 81 MG PO QAM Calcium Carbonate-Vitamin D (Calcium) 1 Tab Tab 1 TAB PO DAILY Cholecalciferol (Vitamin D 1000 Unit) 1,000 Unit Cap 1000 INTER.UNIT PO DAILY, CAP Coenzyme Q10 (Ubidecarenone) (Coenzyme Q-10) 100 Mg Cap 100 MG PO QAM Cranberry (Vaccinium Macrocarp (Cranberry) 500 Mg Cap 1000 MG PO QAM Glucosamine Hydrochloride (Glucosamine Hcl) 1,500 Mg Tab 1500 MG PO BID Levothyroxine Sodium (Synthroid) 75 Mcg Tab 75 MCG PO QAM Lisinopril (Zestril) 5 Mg Tab 5 MG PO DAILY, TAB Multiple Vitamin (Multivitamin) 1 Tab Tab 1 TABLET PO QAM, TAB Nitroglycerin (Nitrostat) 0.4 Mg Tab 0.4 MG UT UD PRN for Chest Pain, BTL [place]-3 Fatty Acids ([place] 3) 1 Cap Cap 1 CAPSULE PO BID Omeprazole (Omeprazole) 20 Mg Tab 20 MG PO HS Pravastatin Sodium (Pravastatin Sodium) 80 Mg Tab 80 MG PO HS Probiotic Product (Probiotic) 1 Cap Cap 1 CAP PO DAILY Admission Information HPI (per Admitting provider): 77 YO female followed by Dr. Miller. History of ischemic heart disease, hypertension, and other problems noted below. She was in her usual state of health until 2 days prior to admission when she developed low grade fever and chills. No headache, cough, nausea, vomiting, diarrhea, dysuria, hematuria, flank pain. [place] worse this morning and checked her BP and pulse at home. Pulse rate was running relatively high for her (80's - 90's) and BP was fluctuating. She called the clinic and was referred to the ED for evaluation. . Physical Exam (per Admitting): General Appearance: WD/WN, no apparent distress Head: normocephalic, atraumatic Eyes: normal inspection, PERRL, EOMI, sclerae normal (conjunctivae pink) ENT: hearing grossly normal, pharynx normal, + pertinent finding (upper and lower dentures) Neck: supple, no adenopathy, thyroid normal, no JVD, trachea midline Respiratory/Chest: lungs clear, no respiratory distress, no accessory muscle use Cardiovascular: regular rate, rhythm, no edema, no gallop, no JVD, no murmur , normal peripheral pulses Abdomen/GI: normal bowel sounds, non tender, soft, no organomegaly Back: no CVA tenderness Extremities/Musculoskelatal: normal inspection, no calf tenderness, normal capillary refill, no pedal edema Neurologic/Psych: emergency communications dispatcher II-XII nml as tested (PERRL, EOMI, no facial palsy, no dysarhtria), no motor/sensory deficits, alert, normal mood/affect, normal reflexes, oriented x 3 Skin: normal color, warm/dry, no rash Lymphatic: no adenopathy (cervical) Hospital Course PYELONEPHRITIS/UTI presented with low grade fever , nausea , weakness CT abdomen /pelvis: Left perinephric fat stranding and mild distention of the left renal collecting system without evidence of an obstructing calculus. Given the absence of a renal calculus seen on prior CT, these findings are most concerning for pyelonephritis. pt's symptom has completely resolved, no nausea , afebrile , white count remains teddy Urine culture -E coli -sensitive to Ciprofloxacin Abx changed to PO Ciprofloxacin for total 5 days tx stable to be discharged home today HYPONATREMIA : , normal Na level today due to dehydration /poor PO intake corrected with IVF with NSS CAD stable Continue aspirin. HYPERTENSION Continue lisinopril DM TYPE 2 Diet controlled. VTE PROPHYLAXIS Moderate risk. SQ enoxaparin. Ambulate. RESUSCITATION STATUS code status = "Level 1" (full resuscitation). DISPOSITION stable to be discharge to home today Internal Medicine follow-up with Dr. Miller. . Total time spent on discharge = 35 MINS This includes examination of the patient, discharge planning, medication reconciliation, and communication with other providers. Discharge Instructions Discharge Instructions Date of Service Jul 27, 2017. Admission Reason for Admission: Pyelonephritis Discharge Discharge Diagnosis / Problem: UTI /PYELONEPHRITIS Discharge Goals Goal(s): Decrease discomfort, Improve disease control, Diagnostic testing, Therapeutic intervention Activity Recommendations Activity Limitations: resume your previous activity . Instructions / Follow-Up Instructions / Follow-Up HOSPITAL FOLLOW UP : WITH DR MILLER IN A WEEK , OFFICE WILL CALL WITH APPOINTMENT Current Hospital Diet Patient's current hospital diet: AHA Diet (Heart Healthy) Discharge Diet Recommended Diet: AHA Diet (Heart Healthy) Pending Studies Studies pending at discharge: no Medical Emergencies . Who to Call and When: Medical Emergencies: If at any time you feel your situation is an emergency, please call 911 immediately. . Non-Emergent Contact Non-Emergency issues call your: Primary Care Provider . . "Provider Documentation" section prepared by Kamilla Weldon. . VTE Core Measure Inpt VTE Proph given/why not?: Enoxaparin (Lovenox)SQ Additional Copies To Raza Miller D.O.
== END 2017-07-27 14:30 | disposition home or self-care (01) | DRG 690 ==
LOC: C.EDB 16:38 → C.MS2W 19:25 → ENRESERV 19:39
PROVIDERS: ADMIT Hospitalist; ATTEND Hospitalist
DX: N12 Tubulo-interstitial nephritis, not specified as acute or chronic (principal); E87.1 Hypo-osmolality and hyponatremia; N39.0 Urinary tract infection, site not specified; B96.20 Unspecified Escherichia coli [E. coli] as the cause of diseases classified elsewhere; I11.9 Hypertensive heart disease without heart failure; I25.10 Atherosclerotic heart disease of native coronary artery without angina pectoris; E11.9 Type 2 diabetes mellitus without complications; Z87.891 Personal history of nicotine dependence; Z79.82 Long term (current) use of aspirin; Z79.899 Other long term (current) drug therapy; Z88.0 Allergy status to penicillin; Z88.8 Allergy status to other drugs, medicaments and biological substances; Z82.49 Family history of ischemic heart disease and other diseases of the circulatory system; Z83.3 Family history of diabetes mellitus

== ENCOUNTER 2020-06-19 07:51 | Inpatient (IN) ==
[2020-06-19] MEDS ORDERED: ONDANSETRON INJ 2 MG/ML 2 ML VIAL IV STA (08:16)
[2020-06-19] MEDS ORDERED: SODIUM CHLORIDE 0.9% 1000ML 1,000 ML IV SCH (08:30)
[2020-06-19 08:45] LABS: Basophils # (auto) 0.01 K/uL (0-0.2); Basophils % (auto) 0.2 %; Eosinophils # (auto) 0.01 K/uL (0-0.5); Eosinophils % (auto) 0.2 %; Hematocrit (blood only) 29.7 % (37-47); Hemoglobin 10.7 g/dL (12.0-16.0); Immature Granulocytes # (auto) 0.01 K/uL (0.00-0.02); Immature Granulocytes % (auto) 0.2 %; Lymphocytes # (auto) 0.94 K/uL (1.2-3.4); Mean Corpuscular Hemoglobin 38.9 pg (25-34); Mean Platelet Volume 8.8 fL (7.4-10.4); Monocytes # (auto) 0.48 K/uL (0.11-0.59); Monocytes % (auto) 10.2 %; Neutrophils # (auto) 3.25 K/uL (1.4-6.5); Neutrophils % (auto) 69.2 %; Platelet Count 173 K/uL (130-400); RDW Coefficient of Variation 16.6 % (11.5-14.5); RDW Standard Deviation 64.5 fL (36.4-46.3); Red Blood Count 2.75 M/uL (4.2-5.4)
--- NOTE | 2020-06-19 08:50 | XRay Report ---
XR chest 1V portable CLINICAL HISTORY: vomiting COMPARISON STUDY: 11/29/2019 FINDINGS: There are postsurgical changes of a midline sternotomy. There is aortic tortuosity/ectasia. There is a left-sided A-Port catheter which has retracted. The tip projects over the medial left cla vicle.[There is interval decrease in the size the multiple bilateral pulmonary nodules. There is no f ree intraperitoneal air. There is mild chronic subpleural septal edema most pronounced the right late ral lung base. IMPRESSION: 1. Interval decrease in the size of the bilateral metastatic pulmonary nodules 2. Mediastinal lymphadenopathy 3. No evidence of acute parenchymal consolidation 4. No evidence of free intraperitoneal air 5. Interval change in the position of the patient's left-sided A-Port catheter. The catheter has a cramer bcutaneous loop and the tip now projects over the medial aspect of the left clavicle. ACT 112: Negative or not required by law. Electronically signed by: Roby Salamanca M.D. 06/19/2020 8:49 AM
[2020-06-19 09:40] LABS: Alanine Aminotransferase 25 U/L (12-78); Albumin Level 3.3 gm/dl (3.4-5.0); BUN Creatinine Ratio 14.8 (10-20); Blood Urea Nitrogen 13 mg/dl (7-18); Calcium 9.2 mg/dl (8.5-10.1); Carbon Dioxide 24 mmol/L (21-32); Chloride 105 mmol/L (98-107); Est GFR (African American) 72.9; Est GFR (Non-African American) 62.9; Glucose 151 mg/dl (70-99); Lipase 233 U/L (73-393); Potassium 4.5 mmol/L (3.5-5.1); Sodium 136 mmol/L (136-145)
--- NOTE | 2020-06-19 09:40 | CT Scan Report ---
CT SCAN OF THE ABDOMEN AND PELVIS WITHOUT CONTRAST CLINICAL HISTORY: abd pain vomiting HISTORY OF LYMPHOMA COMPARISON STUDY: 07/23/2017, PET CT scan dated 11/17/2019 TECHNIQUE: CT scan of the abdomen and pelvis was performed from the lung bases to the proximal femurs . Images are reviewed in the axial, sagittal, and coronal planes. IV contrast was not administered fo r this examination. A dose lowering technique was utilized adhering to the principles of ALARA. CT DOSE: 226.45 mGycm FINDINGS: Lower chest: There is pulmonary emphysema. There are bilateral pulmonary nodules the largest of which measures 3 cm. The findings are consistent with metastatic disease. There is fusiform dilatation of the descending thoracic aorta which measures 4 cm in diameter Liver: There is an 8 cm right lobe hepatic mass consistent with metastatic disease. This is slightly larger than on the preceding study. There is mild perihepatic fluid. Gallbladder: Surgically absent Spleen: Normal in size and attenuation. Pancreas: Unremarkable. Adrenal glands: Unremarkable. Kidneys: No renal, ureteral, or bladder calculi are visualized. A 1 cm exophytic left renal lesion li regina represents a cyst. Bowel: There are multiple dilated fluid-filled small bowel loops. The distal small bowel is of normal caliber. The findings are consistent with a small bowel obstruction. There is colonic diverticulosis . There is no evidence of acute diverticulitis. There is no convincing evidence of acute appendicitis . Evaluation is limited given the lack of intravenous and oral contrast. There is no pneumatosis. The re is a ventral hernia which contains a knuckle of transverse colon. This is not currently resulting in obstruction. There is moderate rectosigmoid stool. There is a gas bubble in the region the katelin h epatis. This may represent gas within a diverticulum. Extraluminal gas is felt to be unlikely as no a dditional sites of extraluminal gas are evident. Peritoneum: There is low-level ascites. No definite free air is visualized. There is a lower anterior abdominal wall ventral hernia containing fat and fluid. In addition there is a supraumbilical ventra l hernia containing a portion of transverse colon. Vasculature: There are aortoiliac atheromatous changes. There are postsurgical changes of an aortobif emoral bypass. Adenopathy: None. Pelvic viscera: The uterus appears surgically absent. Skeletal structures: There is a superior endplate L1 compression fracture which does not appear acute IMPRESSION: 1. CT findings indicative of a small bowel obstruction. No pneumatosis. No portal venous gas. 2. Low volume ascites 3. Multiple pulmonary nodules consistent with metastatic disease/lymphoma 4. 8 cm hepatic mass likely representing metastatic disease/lymphoma. 5. Examination limited due to the lack of intravenous and oral contrast. ACT 112: Negative or not required by law. Electronically signed by: Roby Salamanca M.D. 06/19/2020 9:39 AM
[2020-06-19 09:45] LABS: Alkaline Phosphatase 117 U/L (45-117); Aspartate Aminotransferase 48 U/L (15-37); Bilirubin,Total 0.6 mg/dl (0.2-1); Globulin 3.3 gm/dl (2.5-4.0); Total Protein 6.6 gm/dl (6.4-8.2)
--- NOTE | 2020-06-19 09:45 | Emergency Department Note ---
History of Present Illness General Chief complaint: Vomiting Stated complaint: CANCER PATIENT-VOMITING,HERNIA-SEVERE PAIN Time Seen by Provider: 06/19/20 08:13 Source: patient Mode of arrival: ambulatory Limitations: no limitations History of Present Illness Provider complaint: Nausea/vomiting Maximum Pain Intensity: 2 This is an 79-year-old female who presents to the ED with a chief complaint of nausea and vomiting. The patient states that her symptoms started early this morning. She also reports weakness and dizziness. She has a history of B-cell lymphoma. Her last chemotherapy was 05/10/2020. The patient reports that her symptoms started at 2 AM. She has vomited more than 7 times since that time. She also describes a sharp pain in her abdomen intermittently. That pain start ed yesterday afternoon. She did try her Zofran and Compazine that she has at home for her symptoms but that did not help. She denies any chest pains or shortness of breath. No fevers. Home Medications Home Medications Medication Instructions Recorded Confirmed Type coQ10 (ubiquinol) 100 mg PO QAM 07/10/18 06/19/20 History cranberry 500 mg PO QAM 07/10/18 06/19/20 History glucosamine HCl 1,500 mg PO BID 07/10/18 06/19/20 History multivitamin 1 tab PO HS 07/10/18 06/19/20 History nitroglycerin 1 dose SUBLINGUAL DIRECTED PRN 07/10/18 06/19/20 History pravastatin 80 mg PO HS 07/10/18 06/19/20 History levothyroxine 75 mcg capsule 75 mcg PO QAM 06/22/19 06/19/20 History Probiotic 1 tab PO QAM 12/09/19 06/19/20 History docusate sodium [Colace] 200 mg PO HS 12/09/19 06/19/20 History acyclovir 800 mg PO HS 06/19/20 06/19/20 History ferrous sulfate [iron] 325 mg PO HS 06/19/20 06/19/20 History isosorbide mononitrate [Imdur] 120 mg PO QAM 06/19/20 06/19/20 History ondansetron 8 mg PO Q8H PRN 06/19/20 06/19/20 History prochlorperazine maleate 10 mg PO Q8H PRN 06/19/20 06/19/20 History [Compazine] Allergies Allergy/AdvReac Type Severity Reaction Status Date / Time Penicillins Allergy Intermediate TONGUE Verified 06/19/20 08:42 FEELS FUZZY amlodipine Allergy Mild WEAKNESS, Verified 06/19/20 08:42 DIZZINESS & SOB doxycycline AdvReac Intermediate Gastrointestinal Verified 06/19/20 08:42 Upset fluticasone AdvReac Intermediate advair -- Verified 06/19/20 08:42 "PAIN IN MY HEART" alendronate sodium AdvReac Mild GI upset Verified 06/19/20 08:42 carvedilol AdvReac Mild WEAKNESS, Verified 06/19/20 08:42 DIZZINESS gemfibrozil AdvReac Mild MUSCLE Verified 06/19/20 08:42 WEAKNESS hydralazine AdvReac Mild WEAKNESS, Verified 06/19/20 08:42 DIZZINESS isosorbide [From Imdur] AdvReac Mild pain in Verified 06/19/20 08:42 heart, racing heart metoprolol AdvReac Mild WEAKNESS, Verified 06/19/20 08:42 DIZZINESS rosuvastatin AdvReac Mild Muscle pain Verified 06/19/20 08:42 salmeterol AdvReac Mild advair -- Verified 06/19/20 08:42 "PAIN IN MY HEART" [id number] Reductase AdvReac Mild MUSCLE Verified 06/19/20 08:42 Inhibitor WEAKNESS Past Med/Surg History Medical History AAA (abdominal aortic aneurysm) S/p repair- under observation- 02/07/2019 CTA of thorax shows 4.4cm - stable Anemia Broken heart syndrome DX 2014- complete LV recovery Cancer LYMPHOMA-LEFT THYROID LOBE MASS Cardiac murmur Carotid artery disease Monitored by cardio. Carotid doppler 02/03/19- showed 50-59% stenosis to bi lateral ICAs Coronary artery disease "s/p cabg x 3" Diabetes mellitus, type 2 DIET CONTROLLED Diastolic dysfunction Endometriosis GERD (gastroesophageal reflux disease) Hyperlipidemia Hypertension Hypothyroidism Large B-cell lymphoma Neck mass Status post biopsy 06/11/2018, Large cell B-cell lymphoma Status post 3 cycles of R CHOP completed 09/07/2018. 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 no stents History of carpal tunnel release LEFT/RT History of cataract surgery Bilateral History of cholecystectomy History of colonoscopy History of coronary artery bypass graft X 3 VESSELS 2004 History of dilatation and curettage multiple History of hysterectomy History of removal of skin mole History of tooth extraction S/P AAA repair Dec 07, 2007 at [facility]. Follows with Dr. T[place]hawn [place] S/P cholecystectomy Family History Grandmother Family history of diabetes mellitus Other No family history of adverse response to anesthesia Social History Smoking Status: Never smoker Second Hand Exposure: No; Hx Alcohol Use: No Hx Substance Use: No Preferred Language: Luxembourgish Communication Ability: Effective Visual Impairment: No Limitations Corporate Learning Consultant Required: No Beliefs That Will Affect Care: None Current Living Situation: Spouse Feels Safe at Home: Yes Review of Systems A total of 10 systems reviewed and were otherwise negative Physical Exam Vital Signs Vital Signs - 24 hr 06/19/20 08:01 Temperature 37.0 C Temperature Source Oral Pulse Rate 77 Respiratory Rate 20 Respiratory Effort / Characteristics Non-Labored Respiratory Depth Normal Respiratory Pattern Regular Blood Pressure 118/67 Blood Pressure Mean 84 Blood Pressure Position Sitting Pulse Oximetry 100 Oxygen Delivery Method Room Air Sepsis Recent Fever Within 48 Hours No Sepsis New/Unexplained Change in Mental Status No Sepsis Action Taken by Nursing No Action Required CONSTITUTIONAL/VITAL SIGNS: Reviewed / noted above. GENERAL: Non-toxic in appearance. INTEGUMENTARY: Warm, dry, and [place]. HEAD: Normocephalic. EYES: without scleral icterus or trauma. ENT/OROPHARYNX: clear and moist. LYMPHADENOPATHY/NECK: Is supple without lymphadenopathy or meningismus. RESPIRATORY: Lungs clear and equal. CARDIOVASCULAR: Regular rate and rhythm. GI/ABDOMEN: Soft and tender in the right abdomen. No organomegaly or pulsatile mass. No rebound or guarding. Normal bowel sounds. EXTREMITIES: Warm and well perfused. BACK: No CVA tenderness. NEUROLOGICAL: Intact without focal deficits. PSYCHIATRIC: normal affect. MUSCULOSKELETAL: Normally developed with good muscle tone. TRIAGE NURSING DOCUMENTATION REVIEWED. Course Administered Medications Discontinued Medications Sodium Chloride (Nss 1000ml) 1,000 mls @ 999 mls/hr IV .Q1H1M DEMOND Stop: 06/19/20 09:30 Last Infusion: 06/19/20 09:49 Dose: 0 mls/hr Documented by: [id number] Admin: 06/19/20 08:36 Dose: 999 mls/hr Documented by: [id number] Ondansetron HCl (Ondansetron Inj 2 Mg/Ml 2 Ml Vial) 4 mg IV NOW STA Stop: 06/19/20 08:17 Last Admin: 06/19/20 08:35 Dose: 4 mg Documented by: [id number] Medical Decision Making Laboratory Data Result diagrams: 06/19/20 08:30 06/19/20 08:30 Lab Results 06/19/20 06/19/20 Range/Units 08:30 08:30 WBC 4.70 L (4.8-10.8) K/uL RBC 2.75 L (4.2-5.4) M/uL Hgb 10.7 L (12.0-16.0) g/dL Hct 29.7 L (37-47) % MCV 108.0 H (80-100) fL MCH 38.9 H (25-34) pg MCHC 36.0 (32-36) g/dL RDW Std Deviation 64.5 H (36.4-46.3) fL RDW Coeff of [facility] 16.6 H (11.5-14.5) % Plt Count 173 (130-400) K/uL MPV 8.8 (7.4-10.4) fL Immature Gran % (Auto) 0.2 % Neut % (Auto) 69.2 % Lymph % (Auto) 20.0 % [place] % (Auto) 10.2 % Eos % (Auto) 0.2 % Baso % (Auto) 0.2 % Neut # (Auto) 3.25 (1.4-6.5) K/uL Lymph # (Auto) 0.94 L (1.2-3.4) K/uL [place] # (Auto) 0.48 (0.11-0.59) K/uL Eos # (Auto) 0.01 (0-0.5) K/uL Baso # (Auto) 0.01 (0-0.2) K/uL Immature Gran # (Auto) 0.01 (0.00-0.02) K/uL Sodium 136 (136-145) mmol/L Potassium 4.5 (3.5-5.1) mmol/L Chloride 105 (98-107) mmol/L Carbon Dioxide 24 (21-32) mmol/L Anion Gap 7.0 (3-11) BUN 13 (7-18) mg/dl Creatinine 0.87 (0.6-1.2) mg/dl Est Cr Clr Drug Dosing Not Reportable Est GFR ( Amer) 72.9 Est GFR (Non-Af Amer) 62.9 BUN/Creatinine Ratio 14.8 (10-20) Glucose 151 H (70-99) mg/dl Calcium 9.2 (8.5-10.1) mg/dl Total Bilirubin 0.6 (0.2-1) mg/dl AST 48 H (15-37) U/L ALT 25 (12-78) U/L Alkaline Phosphatase 117 (45-117) U/L Total Protein 6.6 (6.4-8.2) gm/dl Albumin 3.3 L (3.4-5.0) gm/dl Globulin 3.3 (2.5-4.0) gm/dl Albumin/Globulin Ratio 1.0 (0.9-2) Lipase 233 (73-393) U/L Imaging Data Radiologist's Impression: CT scan of the abdomen and pelvis: IMPRESSION: 1. CT findings indicative of a small bowel obstruction. No pneumatosis. No portal venous gas. 2. Low volume ascites 3. Multiple pulmonary nodules consistent with metastatic disease/lymphoma 4. 8 cm hepatic mass likely representing metastatic disease/lymphoma. 5. Examination limited due to the lack of intravenous and oral contrast. MPRESSION: 1. Interval decrease in the size of the bilateral metastatic pulmonary nodules 2. Mediastinal lymphadenopathy 3. No evidence of acute parenchymal consolidation 4. No evidence of free intraperitoneal air 5. Interval change in the position of the patient's left-sided A-Port catheter. The catheter has a subcutaneous loop and the tip now projects over the medial aspect of the left clavicle. MDM Narrative The patient presents with nausea and vomiting and abdominal discomfort that started at [address] scan shows findings suggesting a small bowel obstruction. CBC and chemistry panel and lipase are normal or unremarkable. The patient was told the results. She will be seen by the hospitalist. An NG tube has been ordered. The patient did receive IV fluids, IV Zofran and IV Phenergan. I spoke with general surgery about the patient as well. Impression & Plan SBO (small bowel obstruction) Discharge Plan Visit Data Chief Complaint: Vomiting Stated Complaint: CANCER PATIENT-VOMITING,HERNIA-SEVERE PAIN ED Provider: Sterling Cheney Discharge Problem: SBO (small bowel obstruction) Patient Disposition: Being Evaluated by Hospitalist Condition: Good Forms Stand Alone Forms: My [facility], Virtual Emergency Department, Important Visit Information Prescriptions Prescriptions: No Action levothyroxine 75 mcg capsule 75 mcg PO QAM RF: 0 multivitamin Tablet 1 tab PO HS RF: 0 nitroglycerin 0.3 mg Tablet, Sublingual 1 dose Sublingual DIRECTED PRN (Reason: CP) RF: 0 pravastatin 80 mg Tablet 80 mg PO HS RF: 0 cranberry 500 mg Capsule 500 mg PO QAM RF: 0 glucosamine HCl 1,500 mg Tablet 1,500 mg PO BID RF: 0 coQ10 (ubiquinol) 100 mg Capsule 100 mg PO QAM RF: 0 docusate sodium [Colace] 100 mg Capsule 200 mg PO HS RF: 0 Probiotic 1 tab PO QAM RF: 0 prochlorperazine maleate [Compazine] 10 mg Tablet 10 mg PO Q8H PRN (Reason: Nausea And Vomiting) RF: 0 acyclovir 400 mg Tablet 800 mg PO HS RF: 0 ondansetron 8 mg Tablet,Disintegrating 8 mg PO Q8H PRN (Reason: Nausea And Vomiting) RF: 0 isosorbide mononitrate [Imdur] 120 mg Tablet Extended Release 24 Hr 120 mg PO QAM RF: 0 ferrous sulfate [iron] 325 mg (65 mg iron) Tablet 325 mg PO HS RF: 0 Referrals Referrals: Raza Rodriguez DO [Primary Care Provider] -
[2020-06-19] MEDS ORDERED: PROMETHAZINE 25 MG/51 ML BAG IV STA (09:58)
[2020-06-19] MEDS ORDERED: ACETAMINOPHEN 325 MG TAB PO PRN (11:59)
--- NOTE | 2020-06-19 12:35 | Surgery Consultation ---
Date of Consultation June 19, 2020 Assessment & Plan (1) SBO (small bowel obstruction): pt is a 79 year-old female who was admitted to hospital for nausea vomiting, SBO, IMP: SBO, plan, no emergent surgical indication now, conservative treatment, NPO, IV fluid, repeat KUB in am, repeat labs in am, will F/U, pt agrees with the plan, I answered all questions, History of Present Illness Attending Physician: Golden Clifton MD History of Present Illness General Chief complaint: Vomiting Stated complaint: CANCER PATIENT-VOMITING,HERNIA-SEVERE PAIN Time Seen by Provider: 06/19/20 08:13 Source: patient Mode of arrival: ambulatory Limitations: no limitations History of Present Illness Provider complaint: Nausea/vomiting Maximum Pain Intensity: 2 This is an 79-year-old female who presents to the ED with a chief complaint of nausea and vomiting. The patient states that her symptoms started early this morning. She also reports weakness and dizziness. She has a history of B-cell lymphoma. Her last chemotherapy was 05/10/2020. The patient reports that her symptoms started at 2 AM. She has vomited more than 7 times since that time. She also describes a sharp pain in her abdomen intermittently. That pain started yesterday afternoon. She did try her Zofran and Compazine that she has at home for her symptoms but that did not help. She denies any chest pains or shortness of breath. No fevers. I ( Radha Scott MD ) got a call for consult SBO, I reviewed pt's H/P, labs, CT scan with pt, pt just passed some BM this morning, pt denies abdominal pain, just discomfort, Home Medications Home Medications Medication Instructions Recorded Confirmed Type coQ10 (ubiquinol) 100 mg PO QAM 07/10/18 06/19/20 History cranberry 500 mg PO QAM 07/10/18 06/19/20 History glucosamine HCl 1,500 mg PO BID 07/10/18 06/19/20 History multivitamin 1 tab PO HS 07/10/18 06/19/20 History nitroglycerin 1 dose SUBLINGUAL DIRECTED PRN 07/10/18 06/19/20 History pravastatin 80 mg PO HS 07/10/18 06/19/20 History levothyroxine 75 mcg capsule 75 mcg PO QAM 06/22/19 06/19/20 History Probiotic 1 tab PO QAM 12/09/19 06/19/20 History docusate sodium [Colace] 200 mg PO HS 12/09/19 06/19/20 History acyclovir 800 mg PO HS 06/19/20 06/19/20 History ferrous sulfate [iron] 325 mg PO HS 06/19/20 06/19/20 History isosorbide mononitrate [Imdur] 120 mg PO QAM 06/19/20 06/19/20 History ondansetron 8 mg PO Q8H PRN 06/19/20 06/19/20 History prochlorperazine maleate 10 mg PO Q8H PRN 06/19/20 06/19/20 History [Compazine] Allergies Allergy/AdvReac Type Severity Reaction Status Date / Time Penicillins Allergy Intermediate TONGUE Verified 06/19/20 08:42 FEELS FUZZY amlodipine Allergy Mild WEAKNESS, Verified 06/19/20 08:42 DIZZINESS & SOB doxycycline AdvReac Intermediate Gastrointestinal Verified 06/19/20 08:42 Upset fluticasone AdvReac Intermediate advair -- Verified 06/19/20 08:42 "PAIN IN MY HEART" alendronate sodium AdvReac Mild GI upset Verified 06/19/20 08:42 carvedilol AdvReac Mild WEAKNESS, Verified 06/19/20 08:42 DIZZINESS gemfibrozil AdvReac Mild MUSCLE Verified 06/19/20 08:42 WEAKNESS hydralazine AdvReac Mild WEAKNESS, Verified 06/19/20 08:42 DIZZINESS isosorbide [From Imdur] AdvReac Mild pain in Verified 06/19/20 08:42 heart, racing heart metoprolol AdvReac Mild WEAKNESS, Verified 06/19/20 08:42 DIZZINESS rosuvastatin AdvReac Mild Muscle pain Verified 06/19/20 08:42 salmeterol AdvReac Mild advair -- Verified 06/19/20 08:42 "PAIN IN MY HEART" Ugyyjip-Jfs-Ous Reductase AdvReac Mild MUSCLE Verified 06/19/20 08:42 Inhibitor WEAKNESS Past Med/Surg History Medical History AAA (abdominal aortic aneurysm) S/p repair- under observation- 02/07/2019 CTA of thorax shows 4.4cm - stable Anemia Broken heart syndrome DX 2014- complete LV recovery Cancer LYMPHOMA-LEFT THYROID LOBE MASS Cardiac murmur Carotid artery disease Monitored by cardio. Carotid doppler 02/03/19- showed 50-59% stenosis to bilateral ICAs Coronary artery disease "s/p cabg x 3" Diabetes mellitus, type 2 DIET CONTROLLED Diastolic dysfunction Endometriosis GERD (gastroesophageal reflux disease) Hyperlipidemia Hypertension Hypothyroidism Large B-cell lymphoma Neck mass Status post biopsy 06/11/2018, Large cell B-cell lymphoma Status post 3 cycles of R CHOP completed 09/07/2018. 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 no stents History of carpal tunnel release LEFT/RT History of cataract surgery Bilateral History of cholecystectomy History of colonoscopy History of coronary artery bypass graft X 3 VESSELS 2004 History of dilatation and curettage multiple History of hysterectomy History of removal of skin mole History of tooth extraction S/P AAA repair Dec 07, 2007 at [facility]. Follows with Dr. Tyshawn [place] S/P cholecystectomy Family History Grandmother Family history of diabetes mellitus Other No family history of adverse response to anesthesia Social History Smoking Status: Never smoker Second Hand Exposure: No; Hx Alcohol Use: No Hx Substance Use: No Preferred Language: Iraqi Communication Ability: Effective Visual Impairment: No Limitations Grocery Store Bagger Required: No Beliefs That Will Affect Care: None Current Living Situation: Spouse Feels Safe at Home: Yes Review of Systems A total of 10 systems reviewed and were otherwise negative Allergies Allergy/AdvReac Type Severity Reaction Status Date / Time Penicillins Allergy Intermediate TONGUE Verified 06/19/20 08:42 FEELS FUZZY amlodipine Allergy Mild WEAKNESS, Verified 06/19/20 08:42 DIZZINESS & SOB doxycycline AdvReac Intermediate Gastrointestinal Verified 06/19/20 08:42 Upset fluticasone AdvReac Intermediate advair -- Verified 06/19/20 08:42 "PAIN IN MY HEART" alendronate sodium AdvReac Mild GI upset Verified 06/19/20 08:42 carvedilol AdvReac Mild WEAKNESS, Verified 06/19/20 08:42 DIZZINESS gemfibrozil AdvReac Mild MUSCLE Verified 06/19/20 08:42 WEAKNESS hydralazine AdvReac Mild WEAKNESS, Verified 06/19/20 08:42 DIZZINESS isosorbide [From Imdur] AdvReac Mild pain in Verified 06/19/20 08:42 heart, racing heart metoprolol AdvReac Mild WEAKNESS, Verified 06/19/20 08:42 DIZZINESS rosuvastatin AdvReac Mild Muscle pain Verified 06/19/20 08:42 salmeterol AdvReac Mild advair -- Verified 06/19/20 08:42 "PAIN IN MY HEART" Fgfrixd-Jgi-Epk Reductase AdvReac Mild MUSCLE Verified 06/19/20 08:42 Inhibitor WEAKNESS Home Medications Home Medications Medication Instructions Recorded Confirmed Type coQ10 (ubiquinol) 100 mg PO QAM 07/10/18 06/19/20 History cranberry 500 mg PO QAM 07/10/18 06/19/20 History glucosamine HCl 1,500 mg PO BID 07/10/18 06/19/20 History multivitamin 1 tab PO HS 07/10/18 06/19/20 History nitroglycerin 1 dose SUBLINGUAL DIRECTED PRN 07/10/18 06/19/20 History pravastatin 80 mg PO HS 07/10/18 06/19/20 History levothyroxine 75 mcg capsule 75 mcg PO QAM 06/22/19 06/19/20 History Probiotic 1 tab PO QAM 12/09/19 06/19/20 History docusate sodium [Colace] 200 mg PO HS 12/09/19 06/19/20 History acyclovir 400 mg PO BID 06/19/20 06/19/20 History ferrous sulfate [iron] 325 mg PO HS 06/19/20 06/19/20 History isosorbide mononitrate [Imdur] 15 mg PO DAILY 06/19/20 06/19/20 History ondansetron 8 mg PO Q8H PRN 06/19/20 06/19/20 History prochlorperazine maleate 10 mg PO Q8H PRN 06/19/20 06/19/20 History [Compazine] sulfamethoxazole-trimethoprim 1 tab PO MOWEFR 06/19/20 06/19/20 History [Bactrim DS] Patient History Medical History AAA (abdominal aortic aneurysm) S/p repair- under observation- 02/07/2019 CTA of thorax shows 4.4cm - stable Anemia Broken heart syndrome DX 2014- complete LV recovery Cancer LYMPHOMA-LEFT THYROID LOBE MASS Cardiac murmur Carotid artery disease Monitored by cardio. Carotid doppler 02/03/19- showed 50-59% stenosis to bilateral ICAs Coronary artery disease "s/p cabg x 3" Diabetes mellitus, type 2 DIET CONTROLLED Diastolic dysfunction Endometriosis GERD (gastroesophageal reflux disease) Hyperlipidemia Hypertension Hypothyroidism Large B-cell lymphoma Neck mass Status post biopsy 06/11/2018, Large cell B-cell lymphoma Status post 3 cycles of R CHOP completed 09/07/2018. 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 no stents History of carpal tunnel release LEFT/RT History of cataract surgery Bilateral History of cholecystectomy History of colonoscopy History of coronary artery bypass graft X 3 VESSELS 2004 History of dilatation and curettage multiple History of hysterectomy History of removal of skin mole History of tooth extraction S/P AAA repair Dec 07, 2007 at [facility]. Follows with Dr. Tyshawn Baech S/P cholecystectomy Family History Grandmother Family history of diabetes mellitus Other No family history of adverse response to anesthesia Social History Smoking Status: Never smoker Second Hand Exposure: No; Hx Alcohol Use: No Hx Substance Use: No Preferred Language: Iraqi Communication Ability: Effective Visual Impairment: No Limitations Grocery Store Bagger Required: No Beliefs That Will Affect Care: None Current Living Situation: Alone Other Information That Helps Us Care for You: No Feels Safe at Home: Yes Safety Concerns: Feels Safe At This Time Review of Systems Review of Systems: All systems reviewed & are unremarkable except as noted in HPI & below Constitutional: as per Subjective / HPI Eyes: as per Subjective / HPI Ear, Nose, Mouth, Throat: as per Subjective / HPI Respiratory: as per Subjective / HPI Cardiovascular: Additional Comments: CAD, S/P AAA repair. S/P CABG x3, HTN, thoracic aneuysm, Gastrointestinal: S/P cholecystectomy, hemorrhoidectomy Genitourinary: as per Subjective / HPI Musculoskeletal: as per Subjective / HPI Integumentary: as per Subjective / HPI Neurologic: as per Subjective / HPI Psychiatric: as per Subjective / HPI Endocrine: as per Subjective / HPI DM Hematologic / Lymphatic: lymphoma Allergy / Immunological: as per Subjective / HPI Physical Exam Constitutional: WD/WN, vitals as above well developed Eyes: PERRL, conjunctivae normal, anicteric sclerae ENMT: external ear and nose normal, oropharynx normal Neck: trachea midline, no thyromegaly Respiratory: normal respiratory effort, lungs clear to auscultation Cardiovascular: RRR, no murmur, no edema Rate/Rhythm: regular rate and regular rhythm Heart Sounds: normal S1 and normal S2 Gastrointestinal (Abdomen): normal bowel sounds, soft, nontender, no hepatosplenomegaly soft, NT, ND, middle line incision, BS + Musculoskeletal: no cyanosis or clubbing, extremities motor strength 5/5 Skin: no rashes, warm and dry Neurologic: patellar DTR's 2+ bilat, sensation intact Psychiatric: Orientation: alert and oriented x 3 Results & Data ([facility]) Vital Signs (Past 12 Hours) Vital Signs Temp Pulse Pulse Resp BP BP Pulse Ox 06/19/20 12:01 36.5 C 64 16 149/77 H 97 06/19/20 10:35 88 L 06/19/20 10:07 75 16 125/83 97 06/19/20 08:01 37.0 C 77 20 118/67 100 Laboratory Results Abnormal lab results 06/19/20 06/19/20 Range/Units 08:30 08:30 WBC 4.70 L (4.8-10.8) K/uL RBC 2.75 L (4.2-5.4) M/uL Hgb 10.7 L (12.0-16.0) g/dL Hct 29.7 L (37-47) % MCV 108.0 H (80-100) fL MCH 38.9 H (25-34) pg RDW Std Deviation 64.5 H (36.4-46.3) fL RDW Coeff of [facility] 16.6 H (11.5-14.5) % Lymph # (Auto) 0.94 L (1.2-3.4) K/uL Glucose 151 H (70-99) mg/dl AST 48 H (15-37) U/L Albumin 3.3 L (3.4-5.0) gm/dl Diagnostic Findings CT SCAN OF THE ABDOMEN AND PELVIS WITHOUT CONTRAST CLINICAL HISTORY: abd pain vomiting HISTORY OF LYMPHOMA COMPARISON STUDY: 07/23/2017, PET CT scan dated 11/17/2019 TECHNIQUE: CT scan of the abdomen and pelvis was performed from the lung bases to the proximal femurs. Images are reviewed in the axial, sagittal, and coronal planes. IV contrast was not administered for this examination. A dose lowering technique was utilized adhering to the principles of ALARA. CT DOSE: 226.45 mGycm FINDINGS: Lower chest: There is pulmonary emphysema. There are bilateral pulmonary nodules the largest of which measures 3 cm. The findings are consistent with metastatic disease. There is fusiform dilatation of the descending thoracic aorta which measures 4 cm in diameter Liver: There is an 8 cm right lobe hepatic mass consistent with metastatic disease. This is slightly larger than on the preceding study. There is mild perihepatic fluid. Gallbladder: Surgically absent Spleen: Normal in size and attenuation. Pancreas: Unremarkable. Adrenal glands: Unremarkable. Kidneys: No renal, ureteral, or bladder calculi are visualized. A 1 cm exophytic left renal lesion likely represents a cyst. Bowel: There are multiple dilated fluid-filled small bowel loops. The distal small bowel is of normal caliber. The findings are consistent with a small bowel obstruction. There is colonic diverticulosis. There is no evidence of acute diverticulitis. There is no convincing evidence of acute appendicitis. Evaluation is limited given the lack of intravenous and oral contrast. There is no pneumatosis. There is a ventral hernia which contains a knuckle of transverse colon. This is not currently resulting in obstruction. There is moderate rectosigmoid stool. There is a gas bubble in the region the katelin hepatis. This may represent gas within a diverticulum. Extraluminal gas is felt to be unlikely as no additional sites of extraluminal gas are evident. Peritoneum: There is low-level ascites. No definite free air is visualized. There is a lower anterior abdominal wall ventral hernia containing fat and fluid. In addition there is a supraumbilical ventral hernia containing a portion of transverse colon. Vasculature: There are aortoiliac atheromatous changes. There are postsurgical changes of an aortobifemoral bypass. Adenopathy: None. Pelvic viscera: The uterus appears surgically absent. Skeletal structures: There is a superior endplate L1 compression fracture which does not appear acute IMPRESSION: 1. CT findings indicative of a small bowel obstruction. No pneumatosis. No portal venous gas. 2. Low volume ascites 3. Multiple pulmonary nodules consistent with metastatic disease/lymphoma 4. 8 cm hepatic mass likely representing metastatic disease/lymphoma. 5. Examination limited due to the lack of intravenous and oral contrast.
--- NOTE | 2020-06-19 13:01 | Electrocardiogram Report ---
Test Reason : Blood Pressure : / mmHG Vent. Rate : 081 BPM Atrial Rate : 087 BPM P-R Int : 164 ms QRS Dur : 088 ms QT Int : 378 ms P-R-T Axes : 064 026 -85 degrees QTc Int : 439 ms Normal sinus rhythm Abnormal ECG When compared with ECG of 29-NOV-2019 05:44, Inverted T waves have replaced nonspecific T wave abnormality in Lateral leads Confirmed by Marco Michelle ([id number]) on 06/19/2020 1:00:49 PM Referred By: REFERRED SELF Confirmed By:Marco Michelle
--- NOTE | 2020-06-19 13:13 | XRay Report ---
KUB HISTORY: Follow up study in a patient with small bowel obstruction SBO COMPARISON: CT abdomen and pelvis 06/19/2020 FINDINGS: Persistent dilated air-filled loops of small bowel are seen within the central abdomen deena uring up to 3.3 cm. There are a few scattered small bowel air-fluid levels. Cholecystectomy. No david l calculi. No ureteral calculi. No pneumoperitoneum or pneumatosis. Lumbar levoscoliosis. No fracture . IMPRESSION: Small bowel obstruction without pneumoperitoneum. ACT 112: Negative or not required by law. The above report was generated using voice recognition software. It may contain grammatical, syntax o r spelling errors. Electronically signed by: Romel Mathew M.D. 06/19/2020 1:11 PM
--- NOTE | 2020-06-19 13:38 | History & Physical Report ---
Date of Service June 19, 2020 Assessment & Plan (1) SBO (small bowel obstruction): -Admit to [facility] -Patient presenting from home with reports of nausea and vomiting -In the ED, CT ABD/pelvis showing SBO -? Due to lymphoma and/or adhesions from prior abdominal surgeries -Abdomen currently soft, no nausea or vomiting. Will hold on NG tube for now -Continue supportive care with n.p.o., IVF, pain and nausea control -Lactate 1.3 -General surgery consult (2) Large B-cell lymphoma: -History of diffuse large B-cell lymphoma -Follows with Dr. Paulo Wood -Currently on chemotherapy receiving gemcitabine and oxaliplatin, last treatment 05/30 -Continue prophylactic Bactrim and acyclovir (3) Coronary artery disease: -Appears stable, no reports of chest pain -Continue nitrate and statin (4) HTN (hypertension): -Stable, continue isosorbide (5) Hypothyroidism: -Continue levothyroxine (6) DVT prophylaxis: -SCDs in the event patient needs invasive procedure Admission and Anticipated Discharge Date Admission Date: June 19, 2020 History of Present Illness Chief Complaint: Nausea and vomiting Primary Care Provider: Raza Rodriguez DO 79-year-old female with PMH CAD s/p CABG, AAA s/p repair, diffuse large B-cell lymphoma on chemo, hypothyroidism, and other problems listed below who presents the ED for evaluation of nausea and vomiting. Patient reports after having dinner last evening, she developed nausea. Throughout the night, she had several episodes of vomiting. She denies hematemesis or coffee-ground emesis. Reports she also notes increasing abdominal distention. Has had some right side abdominal pain as well. Reports normal bowel movement last evening as well as a small bowel movement while in the ED. No fevers or chills. Denies chest pain or shortness of breath. No lightheadedness, dizziness, diaphoresis, syncopal events. Denies urinary symptoms. CT ABD/pelvis shows signs of SBO. Patient was given IV Zofran, IV promethazine, IVF. Allergies Allergy/AdvReac Type Severity Reaction Status Date / Time Penicillins Allergy Intermediate TONGUE Verified 06/19/20 08:42 FEELS FUZZY amlodipine Allergy Mild WEAKNESS, Verified 06/19/20 08:42 DIZZINESS & SOB doxycycline AdvReac Intermediate Gastrointestinal Verified 06/19/20 08:42 Upset fluticasone AdvReac Intermediate advair -- Verified 06/19/20 08:42 "PAIN IN MY HEART" alendronate sodium AdvReac Mild GI upset Verified 06/19/20 08:42 carvedilol AdvReac Mild WEAKNESS, Verified 06/19/20 08:42 DIZZINESS gemfibrozil AdvReac Mild MUSCLE Verified 06/19/20 08:42 WEAKNESS hydralazine AdvReac Mild WEAKNESS, Verified 06/19/20 08:42 DIZZINESS isosorbide [From Imdur] AdvReac Mild pain in Verified 06/19/20 08:42 heart, racing heart metoprolol AdvReac Mild WEAKNESS, Verified 06/19/20 08:42 DIZZINESS rosuvastatin AdvReac Mild Muscle pain Verified 06/19/20 08:42 salmeterol AdvReac Mild advair -- Verified 06/19/20 08:42 "PAIN IN MY HEART" Gzebtfn-Wjf-Ikn Reductase AdvReac Mild MUSCLE Verified 06/19/20 08:42 Inhibitor WEAKNESS Home Medications Home Medications Medication Instructions Recorded Confirmed Type coQ10 (ubiquinol) 100 mg PO QAM 07/10/18 06/19/20 History cranberry 500 mg PO QAM 07/10/18 06/19/20 History glucosamine HCl 1,500 mg PO BID 07/10/18 06/19/20 History multivitamin 1 tab PO HS 07/10/18 06/19/20 History nitroglycerin 1 dose SUBLINGUAL DIRECTED PRN 07/10/18 06/19/20 History pravastatin 80 mg PO HS 07/10/18 06/19/20 History levothyroxine 75 mcg capsule 75 mcg PO QAM 06/22/19 06/19/20 History Probiotic 1 tab PO QAM 12/09/19 06/19/20 History docusate sodium [Colace] 200 mg PO HS 12/09/19 06/19/20 History acyclovir 400 mg PO BID 06/19/20 06/19/20 History ferrous sulfate [iron] 325 mg PO HS 06/19/20 06/19/20 History isosorbide mononitrate [Imdur] 15 mg PO DAILY 06/19/20 06/19/20 History ondansetron 8 mg PO Q8H PRN 06/19/20 06/19/20 History prochlorperazine maleate 10 mg PO Q8H PRN 06/19/20 06/19/20 History [Compazine] sulfamethoxazole-trimethoprim 1 tab PO MOWEFR 06/19/20 06/19/20 History [Bactrim DS] Past Med/Surg History Medical History AAA (abdominal aortic aneurysm) S/p repair- under observation- 02/07/2019 CTA of thorax shows 4.4cm - stable Anemia 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 Carotid doppler 02/03/19- showed 50-59% stenosis to bilateral ICAs Coronary artery disease "s/p cabg x 3" Diabetes mellitus, type 2 DIET CONTROLLED Diastolic dysfunction Endometriosis GERD (gastroesophageal reflux disease) Hyperlipidemia Hypertension Hypothyroidism Large B-cell lymphoma Neck mass Status post biopsy 06/11/2018, Large cell B-cell lymphoma Status post 3 cycles of R CHOP completed 09/07/2018. 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 no stents History of carpal tunnel release LEFT/RT History of cataract surgery Bilateral History of cholecystectomy History of colonoscopy History of coronary artery bypass graft X 3 VESSELS 2004 History of dilatation and curettage multiple History of hysterectomy History of removal of skin mole History of tooth extraction S/P AAA repair Dec 07, 2007 at [facility]. Follows with Dr. Tyshawn [place] S/P cholecystectomy Family History Grandmother Family history of diabetes mellitus Other No family history of adverse response to anesthesia Social History Smoking Status: Former smoker Second Hand Exposure: No; Hx Alcohol Use: No Hx Substance Use: No Preferred Language: Bahamian Communication Ability: Effective Visual Impairment: No Limitations Pad Hand Required: No Beliefs That Will Affect Care: None Current Living Situation: Alone Other Information That Helps Us Care for You: No Feels Safe at Home: Yes Safety Concerns: Feels Safe At This Time Review of Systems Review of Systems: ROS per HPI, all other systems reviewed and negative Physical Exam Constitutional: WD/WN, vitals as above Eyes: PERRL, conjunctivae normal, anicteric sclerae ENMT: external ear and nose normal, oropharynx normal Respiratory: normal respiratory effort, lungs clear to auscultation Cardiovascular: Rate/Rhythm: regular rate and regular rhythm Vessels: normal peripheral pulses Extremities: no edema Gastrointestinal (Abdomen): Inspection/Auscultation: + abdomen distended; + abnormal bowel sounds (Hypoactive) Percussion/Palpation: + abdomen tender (Mild, right-sided abdomen) and abdomen soft; no guarding, abdomen not rigid and no hepatosplenomegaly Musculoskeletal: no cyanosis or clubbing, extremities motor strength 5/5 Skin: no rashes, warm and dry Neurologic: PERRL, EOMI, accommodation nl, no face palsy, no dysarthria Psychiatric: A+Ox3, euthymic affect Results & Data Results & Data ([facility]) Vital Signs (Past 12 Hours) Vital Signs Temp Pulse Pulse Resp BP BP Pulse Ox 06/19/20 12:01 36.5 C 64 16 149/77 H 97 06/19/20 10:35 88 L 06/19/20 10:07 75 16 125/83 97 06/19/20 08:01 37.0 C 77 20 118/67 100 Laboratory Results Short CBC 06/19/20 Range/Units 08:30 WBC 4.70 L (4.8-10.8) K/uL Hgb 10.7 L (12.0-16.0) g/dL Hct 29.7 L (37-47) % Plt Count 173 (130-400) K/uL BMP 06/19/20 08:30 Sodium 136 Potassium 4.5 Chloride 105 Carbon Dioxide 24 BUN 13 Creatinine 0.87 Glucose 151 H Calcium 9.2 Liver Function 06/19/20 Range/Units 08:30 Total Bilirubin 0.6 (0.2-1) mg/dl AST 48 H (15-37) U/L ALT 25 (12-78) U/L Alkaline Phosphatase 117 (45-117) U/L Albumin 3.3 L (3.4-5.0) gm/dl Diagnostic Findings CT ABD/PELVIS IMPRESSION: 1. CT findings indicative of a small bowel obstruction. No pneumatosis. No portal venous gas. 2. Low volume ascites 3. Multiple pulmonary nodules consistent with metastatic disease/lymphoma 4. 8 cm hepatic mass likely representing metastatic disease/lymphoma. 5. Examination limited due to the lack of intravenous and oral contrast. CXR IMPRESSION: 1. Interval decrease in the size of the bilateral metastatic pulmonary nodules 2. Mediastinal lymphadenopathy 3. No evidence of acute parenchymal consolidation 4. No evidence of free intraperitoneal air 5. Interval change in the position of the patient's left-sided A-Port catheter. The catheter has a subcutaneous loop and the tip now projects over the medial aspect of the left clavicle. Code Status & VTE Plan Code Status Patient is a full code as per my discussion with her. VTE Prophylaxis Plan VTE Prophylaxis will be ordered: Yes Supervising Physician Co-Signing Physician Notes Attending Addendum: care coordinated with KAREN Gonzalez please refer to her notes for full details, I agree with her notes patient seen and examined, records reviewed by myself as well on exam, patient seen resting in bed, comfortable denies abdominal pain- comes in waves has mild nausea (+) flatus (+) BM at the ER, loose no other symptoms VS noted and reviewed oriented x 3, not in distress, speaks in sentences with no effort nor accessory muscle use normal rate, regular rhythm, no murmurs clear breath sounds bilaterally (+) BS, non distended, soft, nontender no bipedal edema, erythema, warmth no neuro deficits WBC 4.7 Hg 10[address] abdomen/pelvis: IMPRESSION: 1. CT findings indicative of a small bowel obstruction. No pneumatosis. No portal venous gas. 2. Low volume ascites 3. Multiple pulmonary nodules consistent with metastatic disease/lymphoma 4. 8 cm hepatic mass likely representing metastatic disease/lymphoma. 5. Examination limited due to the lack of intravenous and oral contrast. ASSESSMENT AND PLAN SMALL BOWEL OBSTRUCTION - no mass noted on CT likely from adhesions, has history of intraabdominal surgery - NPO, IV fluids monitor SMALL CELL LYMPHOMA - on chemo monitor other diagnoses and plan of care as per KAREN Gonzalez's notes Golden Clifton MD
[2020-06-19] MEDS: D5W AND NSS 1,000 ML IV SCH ×2 (14:24→23:56)
[2020-06-19] MEDS: SULFAMETHOXAZOLE/TRIMETHOPRIM DS 800/160MG TAB PO SCH (14:26)
[2020-06-19] MEDS: ONDANSETRON INJ 2 MG/ML 2 ML VIAL IV PRN (14:42)
[2020-06-19] MEDS ORDERED: PROMETHAZINE HCL 6.25 MG in SODIUM CHLORIDE 0.9% 50 ML IV PRN (20:00)
[2020-06-19 20:49] LABS: Appearance Urine Clear (Clear); Bacteria Urine Automated Negative (Negative); Bilirubin Urine Negative (Negative); Blood Urine Negative (Negative); Color Urine Yellow; Epithelial Cell Urine Auto >30 /lpf (0-5); Glucose Urine UA Negative (Negative); Ketones Urine Negative (Negative); Leukocyte Esterase Urine Trace (Negative); Nitrite Urine Negative (Negative); Protein Urine Trace (Negative); RBC Urine Automated 0-4 /hpf (0-4); Specific Gravity Urine 1.018 (1.000-1.030); Urobilinogen Urine Negative (Negative); pH Urine 6.5 (4.5-7.5)
[2020-06-19] MEDS: ACYCLOVIR 400 MG TAB PO SCH (20:51)
[2020-06-19] MEDS: PRAVASTATIN SOD 40 MG TAB PO SCH (20:51)
[2020-06-20] MEDS: LEVOTHYROXINE SODIUM 75 MCG TABLET PO SCH (05:32)
[2020-06-20 06:18] LABS: Hemoglobin 10.2 g/dL (12.0-16.0); Mean Corpuscular Hemoglobin 38.8 pg (25-34); Mean Corpuscular Hgb Conc 35.2 g/dL (32-36); Mean Corpuscular Volume 110.3 fL (80-100); Mean Platelet Volume 8.7 fL (7.4-10.4); Platelet Count 174 K/uL (130-400); RDW Coefficient of Variation 17.2 % (11.5-14.5); RDW Standard Deviation 67.5 fL (36.4-46.3); Red Blood Count 2.63 M/uL (4.2-5.4); White Blood Count 5.24 K/uL (4.8-10.8)
[2020-06-20 06:53] LABS: Calcium 7.3 mg/dl (8.5-10.1); Creatinine Clr Calc Pharmacy 36.9 ml/min; Est GFR (African American) 77.2; Est GFR (Non-African American) 66.6; Potassium 4.1 mmol/L (3.5-5.1)
[2020-06-20] MEDS: ACYCLOVIR 400 MG TAB PO SCH ×2 (08:36→22:57)
[2020-06-20] MEDS: ISOSORBIDE MONO EXTENDED REL 30 MG TABCR PO SCH (08:38)
[2020-06-20] MEDS ORDERED: bisacodyL 10 MG SUPP PR STA (08:54)
[2020-06-20] MEDS ORDERED: bisacodyL 10 MG SUPP PR ONE (11:01)
[2020-06-20] MEDS: D5W AND NSS 1,000 ML IV SCH ×2 (11:07→20:56)
--- NOTE | 2020-06-20 11:12 | Surgery Progress Note ---
Date of Service June 20, 2020 Assessment & Plan (1) SBO (small bowel obstruction): vitals stable, afebrile no leukocytosis no return of bowel function yet but has sensation of needing to have bowel movement -in reviewing CT scan she has moderate stool in rectum and sigmoid colon no peritonitis or rigidity Plan: No acute surgical intervention recommended at this time, would like to avoid surgery given metastatic disease on CT scan and prior surgery. Will give Dulcolax suppository encourage ambulating hallway as much as possible to increase GI motility continue bowel rest for now continue medical management Dr. Scott has seen patient and agrees with above. Admission and Anticipated Discharge Date Admission Date: June 19, 2020 Subjective feeling better today no abdominal pain, feeling sensation of needing to have a bowel movement but cannot not passing gas yet occasional nausea but no further vomiting does not feel bloated today Physical Exam Constitutional: WD/WN, vitals as above no acute distress and not ill appearing Respiratory: normal respiratory effort; no respiratory distress Gastrointestinal (Abdomen): Inspection/Auscultation: abdomen normal to inspection and + abdominal surgical scar (midline laparotomy scar present); abdomen not distended and + abnormal bowel sounds (hypoactive) Percussion/Palpation: + abdomen tender (RLQ) and abdomen soft; no guarding and abdomen not rigid Skin: no rashes, warm and dry Psychiatric: A+Ox3, euthymic affect Results & Data ([facility]) Vital Signs (Past 12 Hours) Vital Signs Temp Pulse Resp BP Pulse Ox 06/20/20 08:45 71 112/73 06/20/20 07:37 37.5 C 73 16 99/62 L 96 06/20/20 05:51 99 06/19/20 23:23 37.2 C 62 16 132/82 99 Laboratory Results 06/20/20 06/20/20 06/19/20 Range/Units 05:42 05:42 Unknown WBC 5.24 (4.8-10.8) K/uL RBC 2.63 L (4.2-5.4) M/uL Hgb 10.2 L (12.0-16.0) g/dL Hct 29.0 L (37-47) % MCV 110.3 H (80-100) fL MCH 38.8 H (25-34) pg MCHC 35.2 (32-36) g/dL RDW Std Deviation 67.5 H (36.4-46.3) fL RDW Coeff of [facility] 17.2 H (11.5-14.5) % Plt Count 174 (130-400) K/uL MPV 8.7 (7.4-10.4) fL Sodium 138 (136-145) mmol/L Potassium 4.1 (3.5-5.1) mmol/L Chloride 109 H (98-107) mmol/L Carbon Dioxide 23 (21-32) mmol/L Anion Gap 6.0 (3-11) BUN 10 (7-18) mg/dl Creatinine 0.83 (0.6-1.2) mg/dl Est Cr Clr Drug Dosing 36.9 ml/min Est GFR ( Amer) 77.2 Est GFR (Non-Af Amer) 66.6 BUN/Creatinine Ratio 12.0 (10-20) Glucose 133 H (70-99) mg/dl Lactate (0.4-2.0) mmol/L Calcium 7.3 L D (8.5-10.1) mg/dl Urine Color Yellow Urine Appearance Clear (Clear) Urine pH 6.5 (4.5-7.5) Ur Specific [place] 1.018 (1.000-1.030) Urine Protein Trace H (Negative) Urine Glucose (UA) Negative (Negative) Urine Ketones Negative (Negative) Urine Blood Negative (Negative) Urine Nitrite Negative (Negative) Urine Bilirubin Negative (Negative) Urine Urobilinogen Negative (Negative) Ur Leukocyte Esterase Trace H (Negative) Urine WBC (Auto) 5-10 H (0-5) /hpf Urine RBC (Auto) 0-4 (0-4) /hpf U Hyaline Cast (Auto) 1-5 (0-5) /lpf U Epithel Cells (Auto) >30 H (0-5) /lpf Urine Bacteria (Auto) Negative (Negative) 06/19/20 Range/Units 10:54 WBC (4.8-10.8) K/uL RBC (4.2-5.4) M/uL Hgb (12.0-16.0) g/dL Hct (37-47) % MCV (80-100) fL MCH (25-34) pg MCHC (32-36) g/dL RDW Std Deviation (36.4-46.3) fL RDW Coeff of [facility] (11.5-14.5) % Plt Count (130-400) K/uL MPV (7.4-10.4) fL Sodium (136-145) mmol/L Potassium (3.5-5.1) mmol/L Chloride (98-107) mmol/L Carbon Dioxide (21-32) mmol/L Anion Gap (3-11) BUN (7-18) mg/dl Creatinine (0.6-1.2) mg/dl Est Cr Clr Drug Dosing ml/min Est GFR ( Amer) Est GFR (Non-Af Amer) BUN/Creatinine Ratio (10-20) Glucose (70-99) mg/dl Lactate 1.3 (0.4-2.0) mmol/L Calcium (8.5-10.1) mg/dl Urine Color Urine Appearance (Clear) Urine pH (4.5-7.5) Ur Specific [place] (1.000-1.030) Urine Protein (Negative) Urine Glucose (UA) (Negative) Urine Ketones (Negative) Urine Blood (Negative) Urine Nitrite (Negative) Urine Bilirubin (Negative) Urine Urobilinogen (Negative) Ur Leukocyte Esterase (Negative) Urine WBC (Auto) (0-5) /hpf Urine RBC (Auto) (0-4) /hpf U Hyaline Cast (Auto) (0-5) /lpf U Epithel Cells (Auto) (0-5) /lpf Urine Bacteria (Auto) (Negative)
[2020-06-20] MEDS: ONDANSETRON INJ 2 MG/ML 2 ML VIAL IV PRN (19:18)
[2020-06-20] MEDS: MAGNESIUM HYDROXIDE SUSP 30 ML UDC PO PRN (20:01)
--- NOTE | 2020-06-20 21:24 | Hospitalist Progress Note ---
Date of Service June 20, 2020 Assessment & Plan (1) SBO (small bowel obstruction): -Patient presenting from home with reports of nausea and vomiting -In the ED, CT ABD/pelvis showing SBO -? Due to lymphoma and/or adhesions from prior abdominal surgeries General surgery consulted No flatus or BM yet Pain and nausea improved Continue conservative management including bowel rest, IV fluids Monitor closely (2) Large B-cell lymphoma: -History of diffuse large B-cell lymphoma -Follows with Dr. Paulo Wood -Currently on chemotherapy receiving gemcitabine and oxaliplatin, last treatment 05/30 -Continue prophylactic Bactrim and acyclovir (3) Coronary artery disease: No cardiac symptoms -Continue nitrate and statin (4) HTN (hypertension): -Stable, continue isosorbide (5) Hypothyroidism: -Continue levothyroxine (6) DVT prophylaxis: -SCDs in the event patient needs invasive procedure Disposition Lives with family at home Anticipate discharge home medically stable Admission and Anticipated Discharge Date Admission Date: June 19, 2020 Subjective Follow-up for small bowel obstruction Seen resting in bed, sitting up, not in distress, oriented x3 States she feels improved today compared to yesterday Intermittent waves of abdominal pain is much better today Denies nausea, but no flatus or bowel movements yet Denies shortness of breath, cough, chest pain No other symptoms Review of Systems Review of Systems: All systems reviewed & are unremarkable except as noted in HPI & below Physical Exam Physical Exam: General- oriented x 3, not in distress, speaks in sentences with no effort or accessory muscle use Eyes- anicteric Neck- no JVD Lungs- clear breath sounds bilaterally, no rales/wheezes Heart- normal rate, regular rhythm; no murmurs Abdomen-hypoactive bowel sounds, nondistended, soft, nontender Extremities- no pretibial edema, no calf tenderness Neuro- alert, oriented x 3; no gross focal neurologic deficits Skin- warm & dry Results & Data Results & Data ([facility]) Vital Signs (Past 12 Hours) Vital Signs Temp Pulse Resp BP Pulse Ox 06/20/20 15:29 36.9 C 64 16 146/67 H 97
[2020-06-20] MEDS: PRAVASTATIN SOD 40 MG TAB PO SCH (22:57)
[2020-06-21] MEDS ORDERED: bisacodyL 10 MG SUPP PR STA ×2 (00:52→11:26)
--- NOTE | 2020-06-21 00:53 | Communication Note ---
Date of Service: June 21, 2020 Notified by RN of dark brown emesis. No belly discomfort as per RN. AP SBO NGT decompression N.p.o. for now Will relay to AM provider.
[2020-06-21] MEDS ORDERED: bisacodyL 10 MG SUPP PR ONE (01:03)
[2020-06-21] MEDS: LACTATED RINGER'S 1,000 ML IV SCH ×3 (01:38→20:14)
[2020-06-21 03:44] LABS: Basophils # (auto) 0.01 K/uL (0-0.2); Basophils % (auto) 0.1 %; Eosinophils # (auto) 0.02 K/uL (0-0.5); Eosinophils % (auto) 0.3 %; Hematocrit (blood only) 28.8 % (37-47); Hemoglobin 10.2 g/dL (12.0-16.0); Immature Granulocytes # (auto) 0.01 K/uL (0.00-0.02); Immature Granulocytes % (auto) 0.1 %; Lymphocytes # (auto) 1.16 K/uL (1.2-3.4); Lymphocytes % (auto) 16.5 %; Mean Corpuscular Hemoglobin 38.6 pg (25-34); Mean Corpuscular Hgb Conc 35.4 g/dL (32-36); Mean Corpuscular Volume 109.1 fL (80-100); Mean Platelet Volume 8.6 fL (7.4-10.4); Monocytes # (auto) 0.92 K/uL (0.11-0.59); Monocytes % (auto) 13.1 %; Neutrophils % (auto) 69.9 %; Platelet Count 165 K/uL (130-400); RDW Coefficient of Variation 17.2 % (11.5-14.5); RDW Standard Deviation 68.1 fL (36.4-46.3); Red Blood Count 2.64 M/uL (4.2-5.4); White Blood Count 7.02 K/uL (4.8-10.8)
[2020-06-21 04:02] LABS: Albumin Level 2.9 gm/dl (3.4-5.0); BUN Creatinine Ratio 11.3 (10-20); Calcium 7.4 mg/dl (8.5-10.1); Creatinine Clr Calc Pharmacy 40.3 ml/min; Est GFR (African American) 85.9; Est GFR (Non-African American) 74.1; Potassium 4.1 mmol/L (3.5-5.1)
[2020-06-21 04:04] LABS: Bilirubin,Total 0.5 mg/dl (0.2-1); Globulin 2.9 gm/dl (2.5-4.0); Total Protein 5.8 gm/dl (6.4-8.2)
[2020-06-21] MEDS ORDERED: CALCIUM GLUCONATE 10% 1,000 MG in SODIUM CHLORIDE 0.9% 50 ML IV STA (04:07)
[2020-06-21] MEDS ORDERED: CHLORASEPTIC 1.4% SOLN 180 ML BTL MT PRN (05:25)
--- NOTE | 2020-06-21 09:13 | Hospitalist Progress Note ---
Date of Service June 21, 2020 Assessment & Plan (1) SBO (small bowel obstruction): -Patient presenting from home with reports of nausea and vomiting -In the ED, CT ABD/pelvis showing SBO -? Due to lymphoma and/or adhesions from prior abdominal surgeries General surgery on case No flatus or BM yet Pain and nausea improved Continue conservative management including bowel rest, IV fluids Monitor closely (2) Large B-cell lymphoma: -History of diffuse large B-cell lymphoma -Follows with Dr. Paulo Wood -Currently on chemotherapy receiving gemcitabine and oxaliplatin, last treatment 05/30 -Continue prophylactic Bactrim and acyclovir (3) Coronary artery disease: No cardiac symptoms -Continue nitrate and statin (4) HTN (hypertension): -Stable, continue isosorbide (5) Hypothyroidism: -Continue levothyroxine (6) DVT prophylaxis: -SCDs in the event patient needs invasive procedure Disposition Lives with family at home Anticipate discharge home medically stable Labs Checked ROS-No Headache, No Visual Changes, No Nausea, No Vomiting, No Fever, No Chills, No Neck Pain or Stiffness, No Chest Pain, No Palpitations, No SOB, No CEDEÑO, No Cough, No Sputum, No Wheezing, No Abdominal Pain, No Diarrhea, No Hematemesis, No Hemoptysis, No Unexpected Weight Loss, No Flank pain, No Melena, No Hematochezia, No Frequency, No Urgency, No Burning, No Hematuria, No Rashes, No Diaphoresis. Appetite is Normal No BM or Flatus Physical Exam Gen-AAO x 3, NAD, Afebrile Head-NCAT, EOMI, PERRLA, Anicteric Sclera, No Posterior Pharyngeal Erythema Neck-Supple, No JVD, No Thyromegaly, No Masses, No LAD, No Bruits Lungs-Clear to Auscultation Bilaterally, No Rales, No Rhonchi, No Wheezing, No Crepitus Chest-No S4, +S1, +S2, No S3, No Murmurs, No Rubs, No Gallops, No Ectopy Abdomen-Soft, Bowel Sounds Present, Non Tender, Non Distended, No Hepatomegaly, No Splenomegaly, No Palpable Masses, No Rebound, No Rigidity, No Guarding, +NGT Musculoskeletal-Full Range of Motion Bilaterally, No CVAT Extremities-No Cyanosis, No Clubbing, No Edema Nuero-Cranial Nerves II-XII grossly intact, Motor WNL, DTRs WNL, Strength WNL, Non Focal Psych-Normal Mood Admission and Anticipated Discharge Date Admission Date: June 19, 2020 Results & Data Results & Data ([facility]) Vital Signs (Past 12 Hours) Vital Signs Temp Pulse Resp BP Pulse Ox 06/21/20 08:36 37.0 C 84 15 130/68 97 06/21/20 00:15 36.5 C 73 17 137/54 L 96
[2020-06-21] MEDS: ACYCLOVIR 400 MG TAB PO SCH ×2 (09:37→21:54)
[2020-06-21] MEDS: LEVOTHYROXINE SODIUM 75 MCG TABLET PO SCH (09:37)
[2020-06-21] MEDS: ISOSORBIDE MONO EXTENDED REL 30 MG TABCR PO SCH (09:37)
[2020-06-21] MEDS: SULFAMETHOXAZOLE/TRIMETHOPRIM DS 800/160MG TAB PO SCH (09:38)
--- NOTE | 2020-06-21 09:54 | XRay Report ---
XR KUB/Abdomen 1 view CLINICAL HISTORY: Small bowel obstruction. COMPARISON STUDY: 06/19/2020 FINDINGS: There is been interval insertion of a nasogastric tube. The tip projects over the stomach. There are surgical clips within the right upper quadrant consistent with a prior cholecystectomy. The re are gas-filled small bowel loops at the upper limits of normal in size. IMPRESSION: 1. Interval placement of nasogastric tube 2. Slight decrease in the prominence of gas-filled small bowel loops. ACT 112: Negative or not required by law. Electronically signed by: Roby Salamanca M.D. 06/21/2020 9:53 AM
--- NOTE | 2020-06-21 11:21 | Surgery Progress Note ---
Date of Service June 21, 2020 Assessment & Plan (1) SBO (small bowel obstruction): vitals stable, afebrile no leukocytosis interval placement of NGT last evening due to emesis, KUB today showing slight decrease in prominence of gas-filled small bowel loops no peritonitis or rigidity Plan: No acute surgical intervention recommended at this time, would like to avoid surgery given metastatic disease on CT scan and prior surgery. Likely due to adhesions. Reviewed outpatient PET scan within [facility] records in May no evidence of metastatic disease in small bowel. Sees dr. Wood, currently undergoing palliative chemotherapy. Continue NGT to LIS, NPO for bowel rest encourage ambulating hallway as much as possible to increase GI motility If no significant improvement tomorrow likely consider small bowel follow through March given another suppository today to as she had moderate formed stool in rectum on CT scan. Want to avoid giving as much meds through NGT right now. continue medical management Dr. Scott has seen patient and agrees with above. Admission and Anticipated Discharge Date Admission Date: June 19, 2020 Subjective patient had emesis last night , NGT was placed not passing gas, small formed stool after suppository yesterday but no further bowel function no abdominal pain sore throat when swallowing due to tube abdomen does not feel bloated today Physical Exam Constitutional: + thin; no acute distress and not ill appearing Respiratory: normal respiratory effort; no respiratory distress Gastrointestinal (Abdomen): Inspection/Auscultation: + abdomen distended (mild); + abnormal bowel sounds (hypoactive) Percussion/Palpation: + abdomen tender (mild in lower mid abdomen) and abdomen soft; no guarding and abdomen not rigid NGT with bilious output Skin: no rashes, warm and dry Psychiatric: Orientation: alert and oriented x 3 Results & Data ([facility]) Vital Signs (Past 12 Hours) Vital Signs Temp Pulse Resp BP Pulse Ox 06/21/20 08:36 37.0 C 84 15 130/68 97 06/21/20 00:15 36.5 C 73 17 137/54 L 96 Laboratory Results 06/21/20 06/21/20 06/20/20 Range/Units 03:27 03:27 20:18 WBC 7.02 (4.8-10.8) K/uL RBC 2.64 L (4.2-5.4) M/uL Hgb 10.2 L (12.0-16.0) g/dL Hct 28.8 L (37-47) % MCV 109.1 H (80-100) fL MCH 38.6 H (25-34) pg MCHC 35.4 (32-36) g/dL RDW Std Deviation 68.1 H (36.4-46.3) fL RDW Coeff of [facility] 17.2 H (11.5-14.5) % Plt Count 165 (130-400) K/uL MPV 8.6 (7.4-10.4) fL Immature Gran % (Auto) 0.1 % Neut % (Auto) 69.9 % Lymph % (Auto) 16.5 % Amelia % (Auto) 13.1 % Eos % (Auto) 0.3 % Baso % (Auto) 0.1 % Neut # (Auto) 4.90 (1.4-6.5) K/uL Lymph # (Auto) 1.16 L (1.2-3.4) K/uL Amelia # (Auto) 0.92 H (0.11-0.59) K/uL Eos # (Auto) 0.02 (0-0.5) K/uL Baso # (Auto) 0.01 (0-0.2) K/uL Immature Gran # (Auto) 0.01 (0.00-0.02) K/uL Sodium 139 (136-145) mmol/L Potassium 4.1 (3.5-5.1) mmol/L Chloride 108 H (98-107) mmol/L Carbon Dioxide 26 (21-32) mmol/L Anion Gap 5.0 (3-11) BUN 9 (7-18) mg/dl Creatinine 0.76 (0.6-1.2) mg/dl Est Cr Clr Drug Dosing 40.3 ml/min Est GFR ( Amer) 85.9 Est GFR (Non-Af Amer) 74.1 BUN/Creatinine Ratio 11.3 (10-20) Glucose 120 H (70-99) mg/dl POC Glucose 149 H (70-99) mg/dl Calcium 7.4 L (8.5-10.1) mg/dl Magnesium 2.0 (1.8-2.4) mg/dl Total Bilirubin 0.5 (0.2-1) mg/dl AST 37 (15-37) U/L ALT 18 (12-78) U/L Alkaline Phosphatase 91 (45-117) U/L Total Protein 5.8 L (6.4-8.2) gm/dl Albumin 2.9 L (3.4-5.0) gm/dl Globulin 2.9 (2.5-4.0) gm/dl Albumin/Globulin Ratio 1.0 (0.9-2) /18/20 Range/Units 15:35 WBC (4.8-10.8) K/uL RBC (4.2-5.4) M/uL Hgb (12.0-16.0) g/dL Hct (37-47) % MCV (80-100) fL MCH (25-34) pg MCHC (32-36) g/dL RDW Std Deviation (36.4-46.3) fL RDW Coeff of [facility] (11.5-14.5) % Plt Count (130-400) K/uL MPV (7.4-10.4) fL Immature Gran % (Auto) % Neut % (Auto) % Lymph % (Auto) % Amelia % (Auto) % Eos % (Auto) % Baso % (Auto) % Neut # (Auto) (1.4-6.5) K/uL Lymph # (Auto) (1.2-3.4) K/uL Amelia # (Auto) (0.11-0.59) K/uL Eos # (Auto) (0-0.5) K/uL Baso # (Auto) (0-0.2) K/uL Immature Gran # (Auto) (0.00-0.02) K/uL Sodium (136-145) mmol/L Potassium (3.5-5.1) mmol/L Chloride (98-107) mmol/L Carbon Dioxide (21-32) mmol/L Anion Gap (3-11) BUN (7-18) mg/dl Creatinine (0.6-1.2) mg/dl Est Cr Clr Drug Dosing ml/min Est GFR ( Amer) Est GFR (Non-Af Amer) BUN/Creatinine Ratio (10-20) Glucose (70-99) mg/dl POC Glucose 122 H (70-99) mg/dl Calcium (8.5-10.1) mg/dl Magnesium (1.8-2.4) mg/dl Total Bilirubin (0.2-1) mg/dl AST (15-37) U/L ALT (12-78) U/L Alkaline Phosphatase (45-117) U/L Total Protein (6.4-8.2) gm/dl Albumin (3.4-5.0) gm/dl Globulin (2.5-4.0) gm/dl Albumin/Globulin Ratio (0.9-2) Diagnostic Findings XR KUB/Abdomen 1 view CLINICAL HISTORY: Small bowel obstruction. COMPARISON STUDY: 06/19/2020 FINDINGS: There is been interval insertion of a nasogastric tube. The tip projects over the stomach. There are surgical clips within the right upper quadrant consistent with a prior cholecystectomy. There are gas-filled small bowel loops at the upper limits of normal in size. IMPRESSION: 1. Interval placement of nasogastric tube 2. Slight decrease in the prominence of gas-filled small bowel loops.
[2020-06-21] MEDS: PRAVASTATIN SOD 40 MG TAB PO SCH (21:54)
[2020-06-22] MEDS: LACTATED RINGER'S 1,000 ML IV SCH ×2 (05:23→14:44)
[2020-06-22] MEDS: LEVOTHYROXINE SODIUM 75 MCG TABLET PO SCH (05:44)
[2020-06-22 07:08] LABS: Hematocrit (blood only) 28.4 % (37-47); Mean Corpuscular Hemoglobin 38.5 pg (25-34); Mean Corpuscular Hgb Conc 35.2 g/dL (32-36); Mean Corpuscular Volume 109.2 fL (80-100); Mean Platelet Volume 8.5 fL (7.4-10.4); Platelet Count 161 K/uL (130-400); RDW Coefficient of Variation 17.2 % (11.5-14.5); RDW Standard Deviation 68.8 fL (36.4-46.3); White Blood Count 5.91 K/uL (4.8-10.8)
[2020-06-22 07:40] LABS: BUN Creatinine Ratio 17.4 (10-20); Calcium 8.2 mg/dl (8.5-10.1); Creatinine Clr Calc Pharmacy 42.5 ml/min; Est GFR (African American) 91.7; Est GFR (Non-African American) 79.1
--- NOTE | 2020-06-22 08:19 | Hospitalist Progress Note ---
Date of Service June 22, 2020 Assessment & Plan (1) SBO (small bowel obstruction): -Patient presenting from home with reports of nausea and vomiting -In the ED, CT ABD/pelvis showing SBO -?Due to lymphoma and/or adhesions from prior abdominal surgeries General surgery on case No flatus or BM yet Pain and nausea improved Continue conservative management including bowel rest, IV fluids (2) Large B-cell lymphoma: -History of diffuse large B-cell lymphoma -Follows with Dr. Paulo Wood -Currently on chemotherapy receiving gemcitabine and oxaliplatin, last treatment 05/30 -Continue prophylactic Bactrim and acyclovir (3) Coronary artery disease: No cardiac symptoms -Continue nitrate and statin (4) HTN (hypertension): -Stable, continue isosorbide (5) Hypothyroidism: -Continue levothyroxine (6) DVT prophylaxis: -SCDs in the event patient needs invasive procedure Disposition Lives with family at home Anticipate discharge home medically stable Await return of gut motility Labs Checked ROS-No Headache, No Visual Changes, No Nausea, No Vomiting, No Fever, No Chills, No Neck Pain or Stiffness, No Chest Pain, No Palpitations, No SOB, No CEDEÑO, No Cough, No Sputum, No Wheezing, No Abdominal Pain, No Diarrhea, No Hematemesis, No Hemoptysis, No Unexpected Weight Loss, No Flank pain, No Melena, No Hematochezia, No Frequency, No Urgency, No Burning, No Hematuria, No Rashes, No Diaphoresis. Appetite is Normal No BM or Flatus Physical Exam Gen-AAO x 3, NAD, Afebrile Head-NCAT, EOMI, PERRLA, Anicteric Sclera, No Posterior Pharyngeal Erythema Neck-Supple, No JVD, No Thyromegaly, No Masses, No LAD, No Bruits Lungs-Clear to Auscultation Bilaterally, No Rales, No Rhonchi, No Wheezing, No Crepitus Chest-No S4, +S1, +S2, No S3, No Murmurs, No Rubs, No Gallops, No Ectopy Abdomen-Soft, Bowel Sounds Present, Non Tender, Non Distended, No Hepatomegaly, No Splenomegaly, No Palpable Masses, No Rebound, No Rigidity, No Guarding, +NGT Musculoskeletal-Full Range of Motion Bilaterally, No CVAT Extremities-No Cyanosis, No Clubbing, No Edema Nuero-Cranial Nerves II-XII grossly intact, Motor WNL, DTRs WNL, Strength WNL, Non Focal Psych-Normal Mood Admission and Anticipated Discharge Date Admission Date: June 19, 2020 Results & Data Results & Data ([facility] [place]) Vital Signs (Past 12 Hours) Vital Signs Temp Pulse Resp BP Pulse Ox 06/22/20 07:40 36.9 C 76 15 132/77 93 06/21/20 22:52 36.9 C 68 16 112/68 92
[2020-06-22] MEDS: ISOSORBIDE MONO EXTENDED REL 30 MG TABCR PO SCH (10:26)
[2020-06-22] MEDS: ACYCLOVIR 400 MG TAB PO SCH ×2 (10:27→22:27)
--- NOTE | 2020-06-22 13:05 | Surgery Progress Note ---
Date of Service June 22, 2020 Assessment & Plan (1) SBO (small bowel obstruction): vitals stable, afebrile no leukocytosis no peritonitis or rigidity NGT with 300 cc last shift and 790 cc in last 24 hours no return of bowel function Plan: No acute surgical intervention recommended at this time, would like to avoid surgery given metastatic disease on CT scan and prior surgery. Likely due to adhesions. Reviewed outpatient PET scan within [facility] records in May no evidence of metastatic disease in small bowel. Sees dr. Wood, currently undergoing palliative chemotherapy. Continue NGT to LIS, NPO for bowel rest Will order small bowel follow through study to assess for complete vs partial obstruction. encourage ambulating hallway as much as possible to increase GI motility may need new bowel regimen for chronic constipation if no signs of complete obstruction as patient takes stool softener daily and require milk of magnesia if unable to have bowel movement in [address] Scott has seen patient and agrees with above. Admission and Anticipated Discharge Date Admission Date: June 19, 2020 Subjective feeling okay had some nausea with the NGT being clamped for oral medications ambulated hallway multiple times yesterday no flatus or bowel movement no abdominal pain, feeling slightly more bloated today Physical Exam Constitutional: WD/WN, vitals as above + thin; no acute distress and not ill appearing Respiratory: normal respiratory effort; no respiratory distress Gastrointestinal (Abdomen): Inspection/Auscultation: abdomen normal to inspection, + abdomen distended (mild) and normal bowel sounds Percussion/Palpation: abdomen soft; abdomen nontender, no guarding and abdomen not rigid NGT with bilious output, cannister almost full Skin: no rashes, warm and dry Psychiatric: A+Ox3, euthymic affect Results & Data ([facility]) Vital Signs (Past 12 Hours) Vital Signs Temp Pulse Resp BP Pulse Ox 06/22/20 07:40 36.9 C 76 15 132/77 93 Laboratory Results 06/22/20 06/22/20 Range/Units 06:54 06:54 WBC 5.91 (4.8-10.8) K/uL RBC 2.60 L (4.2-5.4) M/uL Hgb 10.0 L (12.0-16.0) g/dL Hct 28.4 L (37-47) % MCV 109.2 H (80-100) fL MCH 38.5 H (25-34) pg MCHC 35.2 (32-36) g/dL RDW Std Deviation 68.8 H (36.4-46.3) fL RDW Coeff of [facility] 17.2 H (11.5-14.5) % Plt Count 161 (130-400) K/uL MPV 8.5 (7.4-10.4) fL Sodium 135 L (136-145) mmol/L Potassium 4.0 (3.5-5.1) mmol/L Chloride 104 (98-107) mmol/L Carbon Dioxide 26 (21-32) mmol/L Anion Gap 5.0 (3-11) BUN 13 (7-18) mg/dl Creatinine 0.72 (0.6-1.2) mg/dl Est Cr Clr Drug Dosing 42.5 ml/min Est GFR ( Amer) 91.7 Est GFR (Non-Af Amer) 79.1 BUN/Creatinine Ratio 17.4 (10-20) Glucose 83 (70-99) mg/dl Calcium 8.2 L (8.5-10.1) mg/dl
--- NOTE | 2020-06-22 21:07 | Fluoroscopy Report ---
FL small bowel follow through CLINICAL HISTORY: 79 years-old Female with eval SBO, contrast via NGT. Small bowel obstruction TECHNIQUE: Oral barium was administered to the patient and serial radiographs of the abdomen were pe rformed. 11 images were submitted. 600 mL Gastroview mixed with water was administered via the enteri c tube. COMPARISON STUDY: KUB 06/21/2020, CT abdomen pelvis the FINDINGS: An enteric tube is present with distal tip projected superiorly within the region of the ga stric fundus. Persistent dilated loops of small bowel suggest ongoing obstruction. No pneumatosis or pneumoperitoneum. Cholecystectomy. Cardiomegaly with prior median sternotomy. Bibasilar pulmonary nod ules. Enteric contrast was then administered via the enteric tube. Transit of contrast from the stomach int o the small bowel occurred promptly and was recorded at 20 minutes. Distended dilated loops of small bowel are redemonstrated. Progressive images obtained with eating up to 4 hours and 45 minutes demons trates progressive dilution of the enteric contrast. The patient also was reportedly vomiting in the interval. This limits evaluation of the enteric progression into the distal small bowel. The last graeme ge was obtained at 8 hours and 45 minutes. Contrast progresses into the abdominal right lower quadran t distribution possibly into the cecum. Terminal ileum is not well seen. IMPRESSION: 1. Limited exam secondary to progressive dilution of enteric contrast throughout the exam. Enteric co ntrast likely progresses into the cecum by the 8 hour and 45 minute film. 2. Persistent at least partial small bowel obstruction ACT 112: Negative or not required by law. The above report was generated using voice recognition software. It may contain grammatical, syntax o r spelling errors. Electronically signed by: Romel Mathew M.D. 06/22/2020 9:06 PM
[2020-06-22] MEDS: PRAVASTATIN SOD 40 MG TAB PO SCH (22:27)
[2020-06-23] MEDS: LACTATED RINGER'S 1,000 ML IV SCH ×2 (00:42→11:08)
[2020-06-23 06:47] LABS: Hematocrit (blood only) 33.4 % (37-47); Hemoglobin 11.8 g/dL (12.0-16.0); Mean Corpuscular Hemoglobin 38.8 pg (25-34); Mean Corpuscular Hgb Conc 35.3 g/dL (32-36); Mean Corpuscular Volume 109.9 fL (80-100); Mean Platelet Volume 8.9 fL (7.4-10.4); Platelet Count 175 K/uL (130-400); RDW Coefficient of Variation 17.2 % (11.5-14.5); Red Blood Count 3.04 M/uL (4.2-5.4); White Blood Count 7.64 K/uL (4.8-10.8)
[2020-06-23 07:11] LABS: BUN Creatinine Ratio 23.9 (10-20); Calcium 9.6 mg/dl (8.5-10.1); Est GFR (Non-African American) 60.4; Potassium 3.5 mmol/L (3.5-5.1)
[2020-06-23] MEDS: LEVOTHYROXINE SODIUM 75 MCG TABLET PO SCH (07:44)
[2020-06-23] MEDS: ACYCLOVIR 400 MG TAB PO SCH ×2 (07:44→21:07)
[2020-06-23] MEDS: SULFAMETHOXAZOLE/TRIMETHOPRIM DS 800/160MG TAB PO SCH (07:45)
[2020-06-23] MEDS: ISOSORBIDE MONO EXTENDED REL 30 MG TABCR PO SCH (07:46)
--- NOTE | 2020-06-23 09:15 | Hospitalist Progress Note ---
Date of Service June 23, 2020 Assessment & Plan (1) SBO (small bowel obstruction): -Patient presenting from home with reports of nausea and vomiting -In the ED, CT ABD/pelvis showing SBO -?Due to lymphoma and/or adhesions from prior abdominal surgeries General surgery on case No flatus or BM yet Pain and nausea improved Continue conservative management including bowel rest, IV fluids Obstruction not resolving (2) Large B-cell lymphoma: -History of diffuse large B-cell lymphoma -Follows with Dr. Paulo Wood -Currently on chemotherapy receiving gemcitabine and oxaliplatin, last treatment 05/30 -Continue prophylactic Bactrim and acyclovir (3) Coronary artery disease: No cardiac symptoms -Continue nitrate and statin (4) HTN (hypertension): -Stable, continue isosorbide (5) Hypothyroidism: -Continue levothyroxine (6) DVT prophylaxis: -SCDs in the event patient needs invasive procedure Disposition Lives with family at home Anticipate discharge home medically stable Await return of gut motility v Surgery Labs Checked ROS-No Headache, No Visual Changes, No Nausea, No Vomiting, No Fever, No Chills, No Neck Pain or Stiffness, No Chest Pain, No Palpitations, No SOB, No CEDEÑO, No Cough, No Sputum, No Wheezing, No Abdominal Pain, No Diarrhea, No Hematemesis, No Hemoptysis, No Unexpected Weight Loss, No Flank pain, No Melena, No Hematochezia, No Frequency, No Urgency, No Burning, No Hematuria, No Rashes, No Diaphoresis. Appetite is Normal No BM or Flatus Physical Exam Gen-AAO x 3, NAD, Afebrile Head-NCAT, EOMI, PERRLA, Anicteric Sclera, No Posterior Pharyngeal Erythema Neck-Supple, No JVD, No Thyromegaly, No Masses, No LAD, No Bruits Lungs-Clear to Auscultation Bilaterally, No Rales, No Rhonchi, No Wheezing, No Crepitus Chest-No S4, +S1, +S2, No S3, No Murmurs, No Rubs, No Gallops, No Ectopy Abdomen-Soft, Bowel Sounds Present, Non Tender, Non Distended, No Hepatomegaly, No Splenomegaly, No Palpable Masses, No Rebound, No Rigidity, No Guarding, +NGT Musculoskeletal-Full Range of Motion Bilaterally, No CVAT Extremities-No Cyanosis, No Clubbing, No Edema Nuero-Cranial Nerves II-XII grossly intact, Motor WNL, DTRs WNL, Strength WNL, Non Focal Psych-Normal Mood Admission and Anticipated Discharge Date Admission Date: June 19, 2020 Results & Data Results & Data ([facility]) Vital Signs (Past 12 Hours) Vital Signs Temp Pulse Resp BP Pulse Ox 06/23/20 07:10 36.5 C 68 19 126/83 94 06/22/20 23:42 36.9 C 82 16 136/84 93
[2020-06-23] MEDS ORDERED: MAGNESIUM HYDROXIDE SUSP 30 ML UDC NG ONE (11:38)
[2020-06-23] MEDS ORDERED: DEXTROSE 10% 1,000 ML IV PRN (11:38)
--- NOTE | 2020-06-23 11:53 | Surgery Progress Note ---
Date of Service June 23, 2020 Assessment & Plan (1) SBO (small bowel obstruction): vitals stable, afebrile no leukocytosis no peritonitis or rigidity NGT with 600 cc last shift and 1150 cc in last 24 hours (moderate amount of this was contrast for the SBFT yesterday) +flatus only small amount no bowel movement yet SBFT showing persistent small bowel distention but contrast reached colon at 8 hours consistent with at least a partial obstruction not complete obstruction Plan: would like to avoid surgery given metastatic disease on CT scan and prior surgeries. Reviewed outpatient PET scan within [facility] records in May no evidence of metastatic disease in small bowel. Sees dr. Wood, currently undergoing palliative chemotherapy. Continue NGT to LIS, NPO for bowel rest can have small amount of ice chips. Milk of Magnesia today via NGT recommend peripheral nutrition encourage ambulating hallway as much as possible to increase GI motility may need new bowel regimen for chronic constipation if no signs of complete obstruction as patient takes stool softener daily and require milk of magnesia if unable to have bowel movement in [address] Ojeda covering over weekend. Dr. Scott has seen patient and agrees with above. Admission and Anticipated Discharge Date Admission Date: June 19, 2020 Subjective feeling okay this morning, sitting up in chair with NGT currently clamped, has been walking this morning, small amount of gas had and vomiting yesterday during SBFT no bowel movement yet Physical Exam Constitutional: + thin; no acute distress and not ill appearing Respiratory: normal respiratory effort; no respiratory distress Gastrointestinal (Abdomen): Inspection/Auscultation: abdomen normal to inspection and + abdomen distended (mild); + abnormal bowel sounds Percussion/Palpation: abdomen soft; abdomen nontender, no guarding and abdomen not rigid NGT present with bilious output in canister, clear in tubing Skin: no rashes, warm and dry Psychiatric: Orientation: alert and oriented x 3 Results & Data ([facility]) Vital Signs (Past 12 Hours) Vital Signs Temp Pulse Resp BP Pulse Ox 06/23/20 07:10 36.5 C 68 19 126/83 94 Laboratory Results 06/23/20 06/23/20 Range/Units 06:25 06:25 WBC 7.64 (4.8-10.8) K/uL RBC 3.04 L (4.2-5.4) M/uL Hgb 11.8 L (12.0-16.0) g/dL Hct 33.4 L (37-47) % MCV 109.9 H (80-100) fL MCH 38.8 H (25-34) pg MCHC 35.3 (32-36) g/dL RDW Std Deviation 68.0 H (36.4-46.3) fL RDW Coeff of [facility] 17.2 H (11.5-14.5) % Plt Count 175 (130-400) K/uL MPV 8.9 (7.4-10.4) fL Sodium 139 (136-145) mmol/L Potassium 3.5 (3.5-5.1) mmol/L Chloride 98 (98-107) mmol/L Carbon Dioxide 31 (21-32) mmol/L Anion Gap 10.0 (3-11) BUN 22 H D (7-18) mg/dl Creatinine 0.90 (0.6-1.2) mg/dl Est Cr Clr Drug Dosing 34.0 ml/min Est GFR ( Amer) 70.0 Est GFR (Non-Af Amer) 60.4 BUN/Creatinine Ratio 23.9 H (10-20) Glucose 72 (70-99) mg/dl Calcium 9.6 D (8.5-10.1) mg/dl Diagnostic Findings [place] small bowel follow through CLINICAL HISTORY: 79 years-old Female with eval SBO, contrast via NGT. Small bowel obstruction TECHNIQUE: Oral barium was administered to the patient and serial radiographs of the abdomen were performed. 11 images were submitted. 600 mL Gastroview mixed with water was administered via the enteric tube. COMPARISON STUDY: KUB 06/21/2020, CT abdomen pelvis the FINDINGS: An enteric tube is present with distal tip projected superiorly within the region of the gastric fundus. Persistent dilated loops of small bowel suggest ongoing obstruction. No pneumatosis or pneumoperitoneum. Cholecystectomy. Cardiomegaly with prior median sternotomy. Bibasilar pulmonary nodules. Enteric contrast was then administered via the enteric tube. Transit of contrast from the stomach into the small bowel occurred promptly and was recorded at 20 minutes. Distended dilated loops of small bowel are redemonstrated. Progressive images obtained with eating up to 4 hours and 45 minutes demonstrates progressive dilution of the enteric contrast. The patient also was reportedly vomiting in the interval. This limits evaluation of the enteric progression into the distal small bowel. The last image was obtained at 8 hours and 45 minutes. Contrast progresses into the abdominal right lower quadrant distribution possibly into the cecum. Terminal ileum is not well seen. IMPRESSION: 1. Limited exam secondary to progressive dilution of enteric contrast throughout the exam. Enteric contrast likely progresses into the cecum by the 8 hour and 45 minute film. 2. Persistent at least partial small bowel obstruction
[2020-06-23] MEDS ORDERED: TPN/PPN CONSULT PHARMACY PRN (11:59)
[2020-06-23 12:59] LABS: Magnesium 2.3 mg/dl (1.8-2.4)
[2020-06-23] MEDS ORDERED: CENTRAL PN IV SCH (16:00)
[2020-06-23] MEDS ORDERED: TPN IV SCH (16:00)
[2020-06-23] MEDS: MAGNESIUM HYDROXIDE SUSP 30 ML UDC PO PRN (16:28)
[2020-06-23] MEDS: PRAVASTATIN SOD 40 MG TAB PO SCH (21:07)
[2020-06-24] MEDS: MAGNESIUM HYDROXIDE SUSP 30 ML UDC PO PRN (00:16)
[2020-06-24] MEDS ORDERED: HEPARIN 100 UNIT/ML 5ML FLUSH FLUSH PRN (01:08)
--- NOTE | 2020-06-24 06:52 | Hospitalist Progress Note ---
Date of Service June 24, 2020 Assessment & Plan (1) SBO (small bowel obstruction): -Patient presenting from home with reports of nausea and vomiting -In the ED, CT ABD/pelvis showing SBO -?Due to lymphoma and/or adhesions from prior abdominal surgeries General surgery on case Some flatus, No BM yet +Stool in distal colon Continue conservative management including bowel rest, IV fluids, PPN started 06/23 Fleet enemas BID until +BM (2) Large B-cell lymphoma: -History of diffuse large B-cell lymphoma -Follows with Dr. Paulo Wood -Currently on chemotherapy receiving gemcitabine and oxaliplatin, last treatment 05/30 -Continue prophylactic Bactrim and acyclovir (3) Coronary artery disease: No cardiac symptoms -Continue nitrate and statin (4) HTN (hypertension): -Stable, continue isosorbide (5) Hypothyroidism: -Continue levothyroxine (6) DVT prophylaxis: -SCDs in the event patient needs invasive procedure Disposition Lives with family at home Anticipate discharge home medically stable Await return of gut motility v Surgery Labs Checked ROS-No Headache, No Visual Changes, No Nausea, No Vomiting, No Fever, No Chills, No Neck Pain or Stiffness, No Chest Pain, No Palpitations, No SOB, No CEDEÑO, No Cough, No Sputum, No Wheezing, No Abdominal Pain, No Diarrhea, No Hematemesis, No Hemoptysis, No Unexpected Weight Loss, No Flank pain, No Melena, No Hematochezia, No Frequency, No Urgency, No Burning, No Hematuria, No Rashes, No Diaphoresis. Appetite is Normal, No BM, Some Flatus Physical Exam Gen-AAO x 3, NAD, Afebrile Head-NCAT, EOMI, PERRLA, Anicteric Sclera, No Posterior Pharyngeal Erythema Neck-Supple, No JVD, No Thyromegaly, No Masses, No LAD, No Bruits Lungs-Clear to Auscultation Bilaterally, No Rales, No Rhonchi, No Wheezing, No Crepitus Chest-No S4, +S1, +S2, No S3, No Murmurs, No Rubs, No Gallops, No Ectopy Abdomen-Soft, Bowel Sounds Present, Non Tender, Non Distended, No Hepatomegaly, No Splenomegaly, No Palpable Masses, No Rebound, No Rigidity, No Guarding, +NGT Musculoskeletal-Full Range of Motion Bilaterally, No CVAT Extremities-No Cyanosis, No Clubbing, No Edema Nuero-Cranial Nerves II-XII grossly intact, Motor WNL, DTRs WNL, Strength WNL, Non Focal Psych-Normal Mood Admission and Anticipated Discharge Date Admission Date: June 19, 2020 Results & Data Results & Data ([facility]) Vital Signs (Past 12 Hours) Vital Signs Temp Pulse Resp BP Pulse Ox 06/24/20 00:32 36.3 C L 85 14 112/74 91
--- NOTE | 2020-06-24 07:43 | Surgery Progress Note ---
Date of Service June 24, 2020 Assessment & Plan (1) SBO (small bowel obstruction): -conservative measures in place with NGT and hydration -will continue these measures as it is preferable to avoid surgery due to metastatic disease -continue hyperalimentation -continue bowel regimen/enemas as ordered by primary service Admission and Anticipated Discharge Date Admission Date: June 19, 2020 Subjective Pt. denies N/V or abdominal pain. No BM but passing small amounts of flatus. She has been able to ambulate in hallway. Physical Exam Constitutional: well developed and well nourished; no acute distress Neck: trachea midline Respiratory: normal respiratory effort; no respiratory distress and no labored breathing Cardiovascular: Rate/Rhythm: regular rate and regular rhythm Gastrointestinal (Abdomen): Inspection/Auscultation: + hypoactive bowel sounds Percussion/Palpation: abdomen soft; abdomen nontender no pain with palpation Results & Data ([facility]) Vital Signs (Past 12 Hours) Vital Signs Temp Pulse Resp BP Pulse Ox 06/24/20 00:32 36.3 C L 85 14 112/74 91 PG Care Time/CCT Total # of Minutes Spent Total Time Spent with Patient: Total time spent is greater than 50% in coordination of care (as documented) at patient's floor/unit and/or counseling patient: Coding Level of Care Code 06113 Subseq Hosp Care Lvl 1 Diagnoses SBO (small bowel obstruction) K56.609
[2020-06-24 09:13] LABS: Hematocrit (blood only) 29.5 % (37-47); Hemoglobin 10.5 g/dL (12.0-16.0); Mean Corpuscular Hemoglobin 40.1 pg (25-34); Mean Corpuscular Hgb Conc 35.6 g/dL (32-36); Mean Corpuscular Volume 112.6 fL (80-100); Mean Platelet Volume 8.7 fL (7.4-10.4); Platelet Count 176 K/uL (130-400); RDW Coefficient of Variation 16.9 % (11.5-14.5); RDW Standard Deviation 68.6 fL (36.4-46.3); Red Blood Count 2.62 M/uL (4.2-5.4); White Blood Count 6.43 K/uL (4.8-10.8)
[2020-06-24] MEDS: LEVOTHYROXINE SODIUM 75 MCG TABLET PO SCH (09:34)
[2020-06-24] MEDS: ISOSORBIDE MONO EXTENDED REL 30 MG TABCR PO SCH (09:36)
[2020-06-24] MEDS: ACYCLOVIR 400 MG TAB PO SCH ×2 (09:38→19:09)
[2020-06-24] MEDS: SOD PHOSPHATE/SOD BIPHOSPHATE ENEMA 132 ML BTL PR SCH ×2 (09:46→21:45)
[2020-06-24 09:47] LABS: BUN Creatinine Ratio 25.9 (10-20); Calcium 9.5 mg/dl (8.5-10.1); Creatinine Clr Calc Pharmacy 32.9 ml/min; Est GFR (African American) 67.3; Magnesium 2.3 mg/dl (1.8-2.4); Phosphorus 2.9 mg/dl (2.5-4.9); Potassium 2.9 mmol/L (3.5-5.1)
[2020-06-24] MEDS: POTASSIUM CHLORIDE / WTR 10 MEQ/100 ML PLCT IV SCH ×4 (11:10→15:01)
[2020-06-24] MEDS ORDERED: CENTRAL PN IV SCH (16:00)
[2020-06-24] MEDS ORDERED: TPN IV SCH (16:00)
[2020-06-24] MEDS: PRAVASTATIN SOD 40 MG TAB PO SCH (19:09)
[2020-06-25 06:20] LABS: Hematocrit (blood only) 29.1 % (37-47); Hemoglobin 10.1 g/dL (12.0-16.0); Mean Corpuscular Hemoglobin 38.8 pg (25-34); Mean Corpuscular Hgb Conc 34.7 g/dL (32-36); Mean Corpuscular Volume 111.9 fL (80-100); Mean Platelet Volume 8.9 fL (7.4-10.4); Platelet Count 157 K/uL (130-400); RDW Coefficient of Variation 17.3 % (11.5-14.5); RDW Standard Deviation 68.7 fL (36.4-46.3); White Blood Count 6.68 K/uL (4.8-10.8)
[2020-06-25] MEDS: LEVOTHYROXINE SODIUM 75 MCG TABLET PO SCH (06:29)
[2020-06-25 07:03] LABS: BUN Creatinine Ratio 29.1 (10-20); Calcium 8.9 mg/dl (8.5-10.1); Creatinine Clr Calc Pharmacy 34.8 ml/min; Est GFR (African American) 71.9; Est GFR (Non-African American) 62.1; Magnesium 2.1 mg/dl (1.8-2.4); Potassium 3.2 mmol/L (3.5-5.1)
[2020-06-25 07:22] LABS: Phosphorus 4.4 mg/dl (2.5-4.9)
--- NOTE | 2020-06-25 07:39 | Surgery Progress Note ---
Date of Service June 25, 2020 Assessment & Plan (1) SBO (small bowel obstruction): -conservative measures in place with NGT and hydration -will continue these measures as it is preferable to avoid surgery due to metastatic disease -continue hyperalimentation until oral intake advanced and deemed to be sufficient for caloric needs -continue bowel regimen/enemas as ordered by primary service Admission and Anticipated Discharge Date Admission Date: June 19, 2020 Subjective Pt. denies N/V or worsening abdominal pain. She notes she had small BM after enema yesterday. Physical Exam Constitutional: well developed and well nourished; no acute distress Neck: trachea midline Respiratory: normal respiratory effort; no respiratory distress and no labored breathing Cardiovascular: Rate/Rhythm: regular rate and regular rhythm Gastrointestinal (Abdomen): Inspection/Auscultation: + hypoactive bowel sounds Percussion/Palpation: abdomen soft; abdomen nontender Results & Data ([facility]) Vital Signs (Past 12 Hours) Vital Signs Temp Pulse Resp BP BP Pulse Ox 06/25/20 06:34 36.4 C L 77 18 105/68 94 06/25/20 00:05 111/69 06/25/20 00:02 36.8 C 79 14 92/55 L 91 PG Care Time/CCT Total # of Minutes Spent Total Time Spent with Patient: Total time spent is greater than 50% in coordination of care (as documented) at patient's floor/unit and/or counseling patient: Coding Level of Care Code 33608 Subseq Hosp Care Lvl 1 Diagnoses SBO (small bowel obstruction) K56.609
[2020-06-25] MEDS: ISOSORBIDE MONO EXTENDED REL 30 MG TABCR PO SCH (08:38)
--- NOTE | 2020-06-25 08:41 | XRay Report ---
XR chest 1V portable CLINICAL HISTORY: Shortness of breath. Lymphoma. COMPARISON STUDY: Chest radiograph June 19, 2020. FINDINGS: There are median sternotomy wires. Left subclavian Gsogbv-i-Skvu is unchanged in position. Catheter is coiled with tip projecting over the confluence of the left subclavian and internal jugula r veins. Cardiac size is normal. Mediastinal contour abnormality along the right aspect the mediastin um is unchanged. This may represent lymphadenopathy. Tip of nasogastric tube is within the gastric ca rdia. There are severe emphysema. Skinfold projects over the right hemithorax. There is no pneumothor ax. Multiple pulmonary nodules are noted. These are unchanged since prior exam of June 19, 2020 but decreased since PET/CT of November 17, 2019. There is no consolidation or evidence for pulmonary prudence a. IMPRESSION: 1. No change in appearance of the chest. Multiple pulmonary nodules, as described above. 2. Severe emphysema. 3. No consolidation. ACT 112: Negative or not required by law. Electronically signed by: Den Rivera M.D. 06/25/2020 8:39 AM
[2020-06-25] MEDS: ACYCLOVIR 400 MG TAB PO SCH ×2 (08:42→21:12)
[2020-06-25] MEDS: SOD PHOSPHATE/SOD BIPHOSPHATE ENEMA 132 ML BTL PR SCH ×2 (08:46→21:15)
--- NOTE | 2020-06-25 08:54 | Hospitalist Progress Note ---
Date of Service June 25, 2020 Assessment & Plan (1) SBO (small bowel obstruction): -Patient presenting from home with reports of nausea and vomiting -In the ED, CT ABD/pelvis showing SBO -?Due to lymphoma and/or adhesions from prior abdominal surgeries General surgery on case Some flatus, No BM yet +Stool in distal colon Continue conservative management including bowel rest, IV fluids, PPN started 06/23 Fleet enemas are working, +2 BMs (2) Large B-cell lymphoma: -History of diffuse large B-cell lymphoma -Follows with Dr. Paulo Wood -Currently on chemotherapy receiving gemcitabine and oxaliplatin, last treatment 05/30 -Continue prophylactic Bactrim and acyclovir (3) Coronary artery disease: No cardiac symptoms -Continue nitrate and statin (4) HTN (hypertension): -Stable, continue isosorbide (5) Hypothyroidism: -Continue levothyroxine (6) DVT prophylaxis: -SCDs in the event patient needs invasive procedure Disposition Lives with family at home Anticipate discharge home medically stable Await return of gut motility v Surgery Labs Checked ROS-No Headache, No Visual Changes, No Nausea, No Vomiting, No Fever, No Chills, No Neck Pain or Stiffness, No Chest Pain, No Palpitations, No SOB, No CEDEÑO, No Cough, No Sputum, No Wheezing, No Abdominal Pain, No Diarrhea, No Hematemesis, No Hemoptysis, No Unexpected Weight Loss, No Flank pain, No Melena, No Hematochezia, No Frequency, No Urgency, No Burning, No Hematuria, No Rashes, No Diaphoresis. Appetite is Normal, No BM, Some Flatus Physical Exam Gen-AAO x 3, NAD, Afebrile Head-NCAT, EOMI, PERRLA, Anicteric Sclera, No Posterior Pharyngeal Erythema Neck-Supple, No JVD, No Thyromegaly, No Masses, No LAD, No Bruits Lungs-Clear to Auscultation Bilaterally, No Rales, No Rhonchi, No Wheezing, No Crepitus Chest-No S4, +S1, +S2, No S3, No Murmurs, No Rubs, No Gallops, No Ectopy Abdomen-Soft, Bowel Sounds Present, Non Tender, Non Distended, No Hepatomegaly, No Splenomegaly, No Palpable Masses, No Rebound, No Rigidity, No Guarding, +NGT Musculoskeletal-Full Range of Motion Bilaterally, No CVAT Extremities-No Cyanosis, No Clubbing, No Edema Nuero-Cranial Nerves II-XII grossly intact, Motor WNL, DTRs WNL, Strength WNL, Non Focal Psych-Normal Mood Admission and Anticipated Discharge Date Admission Date: June 19, 2020 Results & Data Results & Data ([facility]) Vital Signs (Past 12 Hours) Vital Signs Temp Pulse Resp BP BP Pulse Ox 06/25/20 08:36 125/77 06/25/20 06:34 36.4 C L 77 18 105/68 94 06/25/20 00:05 111/69 06/25/20 00:02 36.8 C 79 14 92/55 L 91
[2020-06-25] MEDS ORDERED: POTASSIUM CHLORIDE / WTR 10 MEQ/100 ML PLCT IV SCH (12:30)
[2020-06-25] MEDS ORDERED: TPN IV SCH (16:00)
[2020-06-25] MEDS ORDERED: CENTRAL PN IV SCH (16:00)
[2020-06-25] MEDS: PRAVASTATIN SOD 40 MG TAB PO SCH (21:12)
[2020-06-26] MEDS: LEVOTHYROXINE SODIUM 75 MCG TABLET PO SCH (05:58)
[2020-06-26] MEDS: MAGNESIUM HYDROXIDE SUSP 30 ML UDC PO PRN (06:19)
[2020-06-26 06:27] LABS: Hematocrit (blood only) 32.3 % (37-47); Hemoglobin 10.7 g/dL (12.0-16.0); Mean Corpuscular Hemoglobin 38.1 pg (25-34); Mean Corpuscular Hgb Conc 33.1 g/dL (32-36); Mean Corpuscular Volume 114.9 fL (80-100); Mean Platelet Volume 9.1 fL (7.4-10.4); Platelet Count 175 K/uL (130-400); RDW Coefficient of Variation 17.3 % (11.5-14.5); Red Blood Count 2.81 M/uL (4.2-5.4); White Blood Count 8.13 K/uL (4.8-10.8)
[2020-06-26 07:05] LABS: Calcium 9.5 mg/dl (8.5-10.1); Creatinine Clr Calc Pharmacy 30.3 ml/min; Est GFR (African American) 64.7; Est GFR (Non-African American) 55.9; Magnesium 2.3 mg/dl (1.8-2.4); Phosphorus 3.4 mg/dl (2.5-4.9); Potassium 3.8 mmol/L (3.5-5.1)
--- NOTE | 2020-06-26 08:43 | Hospitalist Progress Note ---
Date of Service June 26, 2020 Assessment & Plan (1) SBO (small bowel obstruction): -Patient presenting from home with reports of nausea and vomiting -In the ED, CT ABD/pelvis showing SBO -?Due to lymphoma and/or adhesions from prior abdominal surgeries General surgery on case +Flatus, +BMs Continue conservative management including bowel rest, IV fluids, PPN started 06/23 Fleet enemas are working Now c Metabolic Alkalosis-IVFs c K, Nephrology eval (2) Large B-cell lymphoma: -History of diffuse large B-cell lymphoma -Follows with Dr. Paulo Wood -Currently on chemotherapy receiving gemcitabine and oxaliplatin, last treatment 05/30 -Continue prophylactic Bactrim and acyclovir (3) Coronary artery disease: No cardiac symptoms -Continue nitrate and statin (4) HTN (hypertension): -Stable, continue isosorbide (5) Hypothyroidism: -Continue levothyroxine (6) DVT prophylaxis: -SCDs in the event patient needs invasive procedure Disposition Lives with family at home Anticipate discharge home medically stable Dispo per Surgery, not sure of endpoint Labs Checked ROS-No Headache, No Visual Changes, No Nausea, No Vomiting, No Fever, No Chills, No Neck Pain or Stiffness, No Chest Pain, No Palpitations, No SOB, No CEDEÑO, No Cough, No Sputum, No Wheezing, No Abdominal Pain, No Diarrhea, No Hematemesis, No Hemoptysis, No Unexpected Weight Loss, No Flank pain, No Melena, No Hematochezia, No Frequency, No Urgency, No Burning, No Hematuria, No Rashes, No Diaphoresis. Appetite is Normal, + BM, + Flatus Physical Exam Gen-AAO x 3, NAD, Afebrile, +NGT c significant OP Head-NCAT, EOMI, PERRLA, Anicteric Sclera, No Posterior Pharyngeal Erythema Neck-Supple, No JVD, No Thyromegaly, No Masses, No LAD, No Bruits Lungs-Clear to Auscultation Bilaterally, No Rales, No Rhonchi, No Wheezing, No Crepitus Chest-No S4, +S1, +S2, No S3, No Murmurs, No Rubs, No Gallops, No Ectopy Abdomen-Soft, Bowel Sounds Present, Non Tender, Non Distended, No Hepatomegaly, No Splenomegaly, No Palpable Masses, No Rebound, No Rigidity, No Guarding, +NGT Musculoskeletal-Full Range of Motion Bilaterally, No CVAT Extremities-No Cyanosis, No Clubbing, No Edema Nuero-Cranial Nerves II-XII grossly intact, Motor WNL, DTRs WNL, Strength WNL, Non Focal Psych-Normal Mood Admission and Anticipated Discharge Date Admission Date: June 19, 2020 Results & Data Results & Data ([facility]) Vital Signs (Past 12 Hours) Vital Signs Temp Pulse Resp BP BP Pulse Ox 06/26/20 07:30 36.5 C 81 16 117/74 93 06/25/20 23:16 36.3 C L 83 16 102/65 95
[2020-06-26] MEDS: NSS + 20MEQ KCL 20 MEQ/1,000 ML BAG IV SCH ×2 (09:29→19:56)
[2020-06-26] MEDS: ACYCLOVIR 400 MG TAB PO SCH ×2 (09:30→19:59)
[2020-06-26] MEDS: SULFAMETHOXAZOLE/TRIMETHOPRIM DS 800/160MG TAB PO SCH (09:31)
[2020-06-26] MEDS: SOD PHOSPHATE/SOD BIPHOSPHATE ENEMA 132 ML BTL PR SCH ×2 (10:27→20:30)
[2020-06-26] MEDS: ISOSORBIDE MONO EXTENDED REL 30 MG TABCR PO SCH (10:28)
--- NOTE | 2020-06-26 14:22 | Surgery Progress Note ---
Date of Service pt is stable, no abdominal pain, passe a little gas, no bm, NG 1600ml, but pt's daughter said including about 1000ml ice water, June 26, 2020 Assessment & Plan (1) SBO (small bowel obstruction): vitals stable, afebrile no leukocytosis no peritonitis or rigidity NGT with 600 cc last shift and 1150 cc in last 24 hours (moderate amount of this was contrast for the SBFT yesterday) +flatus only small amount no bowel movement yet SBFT showing persistent small bowel distention but contrast reached colon at 8 hours consistent with at least a partial obstruction not complete obstruction Plan: would like to avoid surgery given metastatic disease on CT scan and prior surger ies. Reviewed outpatient PET scan within [facility] records in May no evidence of metastatic disease in small bowel. Sees dr. Wood, currently undergoing palliative chemotherapy. Continue NGT to LIS, NPO for bowel rest can have small amount of ice chips. Milk of Magnesia today via NGT recommend peripheral nutrition encourage ambulating hallway as much as possible to increase GI motility may need new bowel regimen for chronic constipation if no signs of complete obstruction as patient takes stool softener daily and require milk of magnesia if unable to have bowel movement in [address] Ojeda covering over weekend. Dr. Scott has seen patient and agrees with above. 06/26/2020 2:20PM stable, pt is on PPN, update to pt's daughter continue conservative treatment, repeat KUB in am, will F/U Admission and Anticipated Discharge Date Admission Date: June 19, 2020 Supervising Physician Co-Signing Physician Notes Attending Addendum: care coordinated with KAREN Gonzalez please refer to her notes for full details, I agree with her notes patient seen and examined, records reviewed by myself as well on exam, patient seen resting in bed, comfortable denies abdominal pain- comes in waves has mild nausea (+) flatus (+) BM at the ER, loose no other symptoms VS noted and reviewed oriented x 3, not in distress, speaks in sentences with no effort nor accessory muscle use normal rate, regular rhythm, no murmurs clear breath sounds bilaterally (+) BS, non distended, soft, nontender no bipedal edema, erythema, warmth no neuro deficits WBC 4.7 Hg [address] abdomen/pelvis: IMPRESSION: 1. CT findings indicative of a small bowel obstruction. No pneumatosis. No portal venous gas. 2. Low volume ascites 3. Multiple pulmonary nodules consistent with metastatic disease/lymphoma 4. 8 cm hepatic mass likely representing metastatic disease/lymphoma. 5. Examination limited due to the lack of intravenous and oral contrast. ASSESSMENT AND PLAN SMALL BOWEL OBSTRUCTION - no mass noted on CT likely from adhesions, has history of intraabdominal surgery - NPO, IV fluids monitor SMALL CELL LYMPHOMA - on chemo monitor other diagnoses and plan of care as per KAREN Gonzalez's notes Golden Clifton MD Subjective Pt. denies N/V or worsening abdominal pain. She notes she had small BM after enema yesterday. Review of Systems Constitutional: as per Subjective / HPI Eyes: as per Subjective / HPI Ear, Nose, Mouth, Throat: as per Subjective / HPI Respiratory: as per Subjective / HPI Cardiovascular: Additional Comments: CAD, S/P AAA repair. S/P CABG x3, HTN, thoracic aneuysm, Gastrointestinal: S/P cholecystectomy, hemorrhoidectomy Genitourinary: as per Subjective / HPI Musculoskeletal: as per Subjective / HPI Integumentary: as per Subjective / HPI Neurologic: as per Subjective / HPI Psychiatric: as per Subjective / HPI Endocrine: as per Subjective / HPI DM Hematologic / Lymphatic: lymphoma Allergy / Immunological: as per Subjective / HPI Physical Exam Constitutional: WD/WN, vitals as above well developed Eyes: PERRL, conjunctivae normal, anicteric sclerae ENMT: external ear and nose normal, oropharynx normal Neck: trachea midline, no thyromegaly Respiratory: normal respiratory effort, lungs clear to auscultation Cardiovascular: RRR, no murmur, no edema Rate/Rhythm: regular rate and regular rhythm Heart Sounds: normal S1 and normal S2 Gastrointestinal (Abdomen): normal bowel sounds, soft, nontender, no hepatosplenomegaly Musculoskeletal: no cyanosis or clubbing, extremities motor strength 5/5 Skin: no rashes, warm and dry Neurologic: patellar DTR's 2+ bilat, sensation intact Psychiatric: Orientation: alert and oriented x 3 Results & Data ([facility]) Vital Signs (Past 12 Hours) Vital Signs Temp Pulse Resp BP BP Pulse Ox 06/26/20 10:29 89 97/70 L 06/26/20 09:24 36.4 C L 86 16 100/62 92 08/24/20 07:30 36.5 C 81 16 117/74 93
[2020-06-26] MEDS ORDERED: Custom Central Pn 1,500 ML in TPN BAG 0 ML IV SCH (16:00)
--- NOTE | 2020-06-26 19:16 | Nephrology Consultation ---
Date of Consultation June 26, 2020 Assessment & Plan (1) Metabolic alkalosis: metabolic alkalosis present as OP but mild, improved since admission initially, now worse since 06/23, when she started PPN. but her acid base disorder relates more to NGT losses which have picked up substantially since 06/23>>has 2.1-2.8 L NGT output daily since 06/23 and increasing >> prior to this had been less than 800 mL daily NGT output. concerning and driving losses and contraction alkalosis -- she is more than 4L negative since 06/23 -getting NS with 20 mEq/L potassium at 100 mL hourly but I will increase current rate to 150 ML hourly overnight and increase if tolerated further in AM -daily bmp and q48 hr mag -cont strict I/O -do not see ingredients in PPN that could be adjusted to improve this but will d/w PN team on daylight -no indication for ABG which would not change mgt -surgery following and hoping to avoid surgical intervention given metastatic CA Present on Admission?: No History of Present Illness Reason for Consultation: Metabolic alkalosis Requesting Physician: Dr Mckeon Attending Physician: Aly Mckeon, History of Present Illness 79-year-old female whom I am asked to evaluate for acid-base disorder and metabolic alkalosis on PPN after she was admitted here June 19 for management of small bowel obstruction managed conservatively to date. Still with large NG tube output over 1 L daily and no bowel movements though positive flatus. Surgery following and conservative management with continuation of PPN recommended. PMH includes diffuse large B cell lymphoma with mets on chemotherapy (gemcitabine, oxaliplatin), HTN. Last CTX was 05/29/20. PPN started 06/23; NGT output also dramatically higher since then. bicarb as OP tends to run 25-28, on no diuretics. she has been in this range since admission but since 06/24 bicarb in 37-40 range. K did dip but normalizing now; chloride has been low as well in low 90s on 06/24 and improving since. no ABG on file. Allergies Allergy/AdvReac Type Severity Reaction Status Date / Time Penicillins Allergy Intermediate TONGUE Verified 06/19/20 08:42 FEELS FUZZY amlodipine Allergy Mild WEAKNESS, Verified 06/19/20 08:42 DIZZINESS & SOB doxycycline AdvReac Intermediate Gastrointestinal Verified 06/19/20 08:42 Upset fluticasone AdvReac Intermediate advair -- Verified 06/19/20 08:42 "PAIN IN MY HEART" alendronate sodium AdvReac Mild GI upset Verified 06/19/20 08:42 carvedilol AdvReac Mild WEAKNESS, Verified 06/19/20 08:42 DIZZINESS gemfibrozil AdvReac Mild MUSCLE Verified 06/19/20 08:42 WEAKNESS hydralazine AdvReac Mild WEAKNESS, Verified 06/19/20 08:42 DIZZINESS isosorbide [From Imdur] AdvReac Mild pain in Verified 06/19/20 08:42 heart, racing heart metoprolol AdvReac Mild WEAKNESS, Verified 06/19/20 08:42 DIZZINESS rosuvastatin AdvReac Mild Muscle pain Verified 06/19/20 08:42 salmeterol AdvReac Mild advair -- Verified 06/19/20 08:42 "PAIN IN MY HEART" Edrfzft-Kue-Kxk Reductase AdvReac Mild MUSCLE Verified 06/19/20 08:42 Inhibitor WEAKNESS Home Medications Home Medications Medication Instructions Recorded Confirmed Type coQ10 (ubiquinol) 100 mg PO QAM 07/10/18 06/19/20 History cranberry 500 mg PO QAM 07/10/18 06/19/20 History glucosamine HCl 1,500 mg PO BID 07/10/18 06/19/20 History multivitamin 1 tab PO HS 07/10/18 06/19/20 History nitroglycerin 1 dose SUBLINGUAL DIRECTED PRN 07/10/18 06/19/20 History pravastatin 80 mg PO HS 07/10/18 06/19/20 History levothyroxine 75 mcg capsule 75 mcg PO QAM 06/22/19 06/19/20 History Probiotic 1 tab PO QAM 12/09/19 06/19/20 History docusate sodium [Colace] 200 mg PO HS 12/09/19 06/19/20 History acyclovir 400 mg PO BID 06/19/20 06/19/20 History ferrous sulfate [iron] 325 mg PO HS 06/19/20 06/19/20 History isosorbide mononitrate [Imdur] 15 mg PO DAILY 06/19/20 06/19/20 History ondansetron 8 mg PO Q8H PRN 06/19/20 06/19/20 History prochlorperazine maleate 10 mg PO Q8H PRN 06/19/20 06/19/20 History [Compazine] sulfamethoxazole-trimethoprim 1 tab PO MOWEFR 06/19/20 06/19/20 History [Bactrim DS] Patient History Medical History AAA (abdominal aortic aneurysm) S/p repair- under observation- 02/07/2019 CTA of thorax shows 4.4cm - stable Anemia 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 Carotid doppler 02/03/19- showed 50-59% stenosis to bilateral ICAs Coronary artery disease "s/p cabg x 3" Diabetes mellitus, type 2 DIET CONTROLLED Diastolic dysfunction Endometriosis GERD (gastroesophageal reflux disease) Hyperlipidemia Hypertension Hypothyroidism Large B-cell lymphoma Neck mass Status post biopsy 06/11/2018, Large cell B-cell lymphoma Status post 3 cycles of R CHOP completed 09/07/2018. 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 no stents History of carpal tunnel release LEFT/RT History of cataract surgery Bilateral History of cholecystectomy History of colonoscopy History of coronary artery bypass graft X 3 VESSELS 2004 History of dilatation and curettage multiple History of hysterectomy History of removal of skin mole History of tooth extraction S/P AAA repair Dec 07, 2007 at [facility]. Follows with Dr. Tyshawn [place] S/P cholecystectomy Family History Grandmother Family history of diabetes mellitus Other No family history of adverse response to anesthesia Social History Smoking Status: Former smoker Second Hand Exposure: No; Hx Alcohol Use: No Hx Substance Use: No Preferred Language: Polish Communication Ability: Effective Visual Impairment: No Limitations Heel Lift Gouger Required: No Beliefs That Will Affect Care: None Current Living Situation: Alone Other Information That Helps Us Care for You: No Feels Safe at Home: Yes Safety Concerns: Feels Safe At This Time Review of Systems Review of Systems: All systems reviewed & are unremarkable except as noted in HPI & below Constitutional: + fatigue, + weakness and + weight loss Gastrointestinal: + bloating and + change in bowel habits; no abdominal pain and no nausea Genitourinary: no dysuria and no difficulty urinating Physical Exam Constitutional: well developed and + thin on RA with NGT with copious brown OP Eyes: EOM intact bilaterally ENMT: Ears: no external ear abnormality Nose: no external nose abnormality Mouth: + dry oral mucous membranes Neck: no nuchal rigidity Respiratory: normal respiratory effort Auscultation: + diminished lung sounds Cardiovascular: Rate/Rhythm: regular rate and regular rhythm Extremities: no edema Gastrointestinal (Abdomen): Inspection/Auscultation: normal bowel sounds Percussion/Palpation: abdomen soft; abdomen nontender Musculoskeletal: Extremities: strength 5/5 throughout Skin: no rashes, warm and dry Neurologic: fabian, fluent speech, no tremor Psychiatric: A+Ox3, euthymic affect Results & Data ([facility]) Vital Signs (Past 12 Hours) Vital Signs Temp Pulse Resp BP BP Pulse Ox 06/26/20 16:03 36.7 C 91 H 16 103/67 93 06/26/20 10:29 89 97/70 L 06/26/20 09:24 36.4 C L 86 16 100/62 92 06/26/20 07:30 36.5 C 81 16 117/74 93 Laboratory Results 06/26/20 05:54 06/26/20 05:54 Diagnostic Findings CXR yesterday FINDINGS: There are median sternotomy wires. Left subclavian Xyzgnc-i-Qcto is unchanged in position. Catheter is coiled with tip projecting over the confluence of the left subclavian and internal jugular veins. Cardiac size is normal. Mediastinal contour abnormality along the right aspect the mediastinum is unchanged. This may represent lymphadenopathy. Tip of nasogastric tube is within the gastric cardia. There are severe emphysema. Skinfold projects over the right hemithorax. There is no pneumothorax. Multiple pulmonary nodules are noted. These are unchanged since prior exam of June 19, 2020 but decreased since PET/CT of November 17, 2019. There is no consolidation or evidence for pulmonary edema. IMPRESSION: 1. No change in appearance of the chest. Multiple pulmonary nodules, as described above. 2. Severe emphysema. 3. No consolidation. CT abd-pelvis non con 06/19 Lower chest: There is pulmonary emphysema. There are bilateral pulmonary nodules the largest of which measures 3 cm. The findings are consistent with metastatic disease. There is fusiform dilatation of the descending thoracic aorta which measures 4 cm in diameter Liver: There is an 8 cm right lobe hepatic mass consistent with metastatic disease. This is slightly larger than on the preceding study. There is mild perihepatic fluid. Gallbladder: Surgically absent Spleen: Normal in size and attenuation. Pancreas: Unremarkable. Adrenal glands: Unremarkable. Kidneys: No renal, ureteral, or bladder calculi are visualized. A 1 cm exophytic left renal lesion likely represents a cyst. Bowel: There are multiple dilated fluid-filled small bowel loops. The distal small bowel is of normal caliber. The findings are consistent with a small bowel obstruction. There is colonic diverticulosis. There is no evidence of acute diverticulitis. There is no convincing evidence of acute appendicitis. Evaluation is limited given the lack of intravenous and oral contrast. There is no pneumatosis. There is a ventral hernia which contains a knuckle of transverse colon. This is not currently resulting in obstruction. There is moderate rectosigmoid stool. There is a gas bubble in the region the katelin hepatis. This may represent gas within a diverticulum. Extraluminal gas is felt to be unlikely as no additional sites of extraluminal gas are evident. Peritoneum: There is low-level ascites. No definite free air is visualized. There is a lower anterior abdominal wall ventral hernia containing fat and fluid. In addition there is a supraumbilical ventral hernia containing a portion of transverse colon. Vasculature: There are aortoiliac atheromatous changes. There are postsurgical changes of an aortobifemoral bypass. Adenopathy: None. Pelvic viscera: The uterus appears surgically absent. Skeletal structures: There is a superior endplate L1 compression fracture which does not appear acute IMPRESSION: 1. CT findings indicative of a small bowel obstruction. No pneumatosis. No p ortal venous gas. 2. Low volume ascites 3. Multiple pulmonary nodules consistent with metastatic disease/lymphoma 4. 8 cm hepatic mass likely representing metastatic disease/lymphoma. 5. Examination limited due to the lack of intravenous and oral contrast.
[2020-06-26] MEDS: PRAVASTATIN SOD 40 MG TAB PO SCH (19:58)
[2020-06-27] MEDS: NSS + 20MEQ KCL 20 MEQ/1,000 ML BAG IV SCH (02:39)
[2020-06-27] MEDS: LEVOTHYROXINE SODIUM 75 MCG TABLET PO SCH (06:04)
[2020-06-27] MEDS: MAGNESIUM HYDROXIDE SUSP 30 ML UDC PO PRN (06:22)
[2020-06-27 07:45] LABS: Hemoglobin 9.6 g/dL (12.0-16.0); Mean Corpuscular Hemoglobin 37.9 pg (25-34); Mean Corpuscular Hgb Conc 33.1 g/dL (32-36); Mean Corpuscular Volume 114.6 fL (80-100); Mean Platelet Volume 9.2 fL (7.4-10.4); Platelet Count 130 K/uL (130-400); RDW Coefficient of Variation 17.8 % (11.5-14.5); Red Blood Count 2.53 M/uL (4.2-5.4); White Blood Count 6.11 K/uL (4.8-10.8)
--- NOTE | 2020-06-27 08:04 | XRay Report ---
[facility] CLINICAL HISTORY: Small bowel obstruction COMPARISON STUDY: CT of the abdomen and pelvis June 19, 2020. Small bowel follow-through June. FINDINGS: Tip of nasogastric tube projects over the gastric cardia. There are cholecystectomy clips. Multiple loops of moderately dilated small bowel are identified. IMPRESSION: 1. Persistent small bowel dilatation. The findings suggest a persistent small bowel obstruction. 2. Tip of nasogastric tube projects over the gastric cardia. ACT 112: Negative or not required by law. Electronically signed by: Den Rivera M.D. 06/27/2020 8:02 AM
[2020-06-27 08:08] LABS: Calcium 8.5 mg/dl (8.5-10.1); Creatinine Clr Calc Pharmacy 35.4 ml/min; Est GFR (African American) 73.9; Est GFR (Non-African American) 63.8; Magnesium 2.1 mg/dl (1.8-2.4); Phosphorus 2.1 mg/dl (2.5-4.9); Potassium 4.8 mmol/L (3.5-5.1)
--- NOTE | 2020-06-27 08:14 | Hospitalist Progress Note ---
Date of Service June 27, 2020 Assessment & Plan (1) SBO (small bowel obstruction): -Patient presenting from home with reports of nausea and vomiting -In the ED, CT ABD/pelvis showing SBO -?Due to lymphoma and/or adhesions from prior abdominal surgeries General surgery on case +Flatus, +BMs Continue conservative management including bowel rest, IV fluids, PPN started 06/23 Fleet enemas Metabolic Alkalosis-IVFs c K, Nephrology on case (2) Large B-cell lymphoma: -History of diffuse large B-cell lymphoma -Follows with Dr. Paulo Wood -Currently on chemotherapy receiving gemcitabine and oxaliplatin, last treatment 05/30 -Continue prophylactic Bactrim and acyclovir (3) Coronary artery disease: No cardiac symptoms -Continue nitrate and statin (4) HTN (hypertension): -Stable, continue isosorbide (5) Hypothyroidism: -Continue levothyroxine (6) DVT prophylaxis: -SCDs in the event patient needs invasive procedure Disposition Lives with family at home Anticipate discharge home medically stable Dispo per Surgery, not sure of endpoint Labs Checked ROS-No Headache, No Visual Changes, No Nausea, No Vomiting, No Fever, No Chills, No Neck Pain or Stiffness, No Chest Pain, No Palpitations, No SOB, No CEDEÑO, No Cough, No Sputum, No Wheezing, No Abdominal Pain, No Diarrhea, No Hematemesis, No Hemoptysis, No Unexpected Weight Loss, No Flank pain, No Melena, No Hematochezia, No Frequency, No Urgency, No Burning, No Hematuria, No Rashes, No Diaphoresis. Appetite is Normal, + BM, + Flatus Physical Exam Gen-AAO x 3, NAD, Afebrile, +NGT c significant OP Head-NCAT, EOMI, PERRLA, Anicteric Sclera, No Posterior Pharyngeal Erythema Neck-Supple, No JVD, No Thyromegaly, No Masses, No LAD, No Bruits Lungs-Clear to Auscultation Bilaterally, No Rales, No Rhonchi, No Wheezing, No Crepitus Chest-No S4, +S1, +S2, No S3, No Murmurs, No Rubs, No Gallops, No Ectopy Abdomen-Soft, Bowel Sounds Present, Non Tender, Non Distended, No Hepatomegaly, No Splenomegaly, No Palpable Masses, No Rebound, No Rigidity, No Guarding, +NGT Musculoskeletal-Full Range of Motion Bilaterally, No CVAT Extremities-No Cyanosis, No Clubbing, No Edema Nuero-Cranial Nerves II-XII grossly intact, Motor WNL, DTRs WNL, Strength WNL, Non Focal Psych-Normal Mood Admission and Anticipated Discharge Date Admission Date: June 19, 2020 Results & Data Results & Data ([facility]) Vital Signs (Past 12 Hours) Vital Signs Temp Pulse Resp BP Pulse Ox 06/27/20 07:45 36.7 C 78 16 133/92 95 06/26/20 22:57 36.5 C 79 16 135/84 95
[2020-06-27] MEDS: ACYCLOVIR 400 MG TAB PO SCH ×2 (09:14→21:12)
[2020-06-27] MEDS: ISOSORBIDE MONO EXTENDED REL 30 MG TABCR PO SCH (09:14)
[2020-06-27] MEDS: SOD PHOSPHATE/SOD BIPHOSPHATE ENEMA 132 ML BTL PR SCH (09:31)
--- NOTE | 2020-06-27 11:28 | Surgery Progress Note ---
Date of Service pt just passed BM, no abdominal pain, no nausea, NG tube 2200ml, but pt said she drinking a lot water, June 27, 2020 Assessment & Plan (1) SBO (small bowel obstruction): vitals stable, afebrile no leukocytosis no peritonitis or rigidity NGT with 600 cc last shift and 1150 cc in last 24 hours (moderate amount of this was contrast for the SBFT yesterday) +flatus only small amount no bowel movement yet SBFT showing persistent small bowel distention but contrast reached colon at 8 hours consistent with at least a partial obstruction not complete obstruction Plan: would like to avoid surgery given metastatic disease on CT scan and prior surgeries. Reviewed outpatient PET scan within [facility] records in May no evidence of metastatic disease in small bowel. Sees dr. Wood, currently undergoing palliative chemotherapy. Continue NGT to LIS, NPO for bowel rest can have small amount of ice chips. Milk of Magnesia today via NGT recommend peripheral nutrition encourage ambulating hallway as much as possible to increase GI motility may need new bowel regimen for chronic constipation if no signs of complete obstruction as patient takes stool softener daily and require milk of magnesia if unable to have bowel movement in [address] Ojeda covering over weekend. Dr. Scott has seen patient and agrees with above. 06/26/2020 2:20PM stable, pt is on PPN, update to pt's daughter continue conservative treatment, repeat KUB in am, will F/U 06/27/2020, 11:15AM passed BM, but today KUB- SBO, pull out NGtube try clear diet, continue conservative treatment now, pt may needs surgery treatment if pt develops abdominal pain, nausea, vomiting,pt and her daughter understood, they agree with the treatment plan, I answered all questions, will F/U Admission and Anticipated Discharge Date Admission Date: June 19, 2020 Supervising Physician Co-Signing Physician Notes Attending Addendum: care coordinated with KAREN Gonzalez please refer to her notes for full details, I agree with her notes patient seen and examined, records reviewed by myself as well on exam, patient seen resting in bed, comfortable denies abdominal pain- comes in waves has mild nausea (+) flatus (+) BM at the ER, loose no other symptoms VS noted and reviewed oriented x 3, not in distress, speaks in sentences with no effort nor accessory muscle use normal rate, regular rhythm, no murmurs clear breath sounds bilaterally (+) BS, non distended, soft, nontender no bipedal edema, erythema, warmth no neuro deficits WBC 4.7 Hg 10[address] abdomen/pelvis: IMPRESSION: 1. CT findings indicative of a small bowel obstruction. No pneumatosis. No portal venous gas. 2. Low volume ascites 3. Multiple pulmonary nodules consistent with metastatic disease/lymphoma 4. 8 cm hepatic mass likely representing metastatic disease/lymphoma. 5. Examination limited due to the lack of intravenous and oral contrast. ASSESSMENT AND PLAN SMALL BOWEL OBSTRUCTION - no mass noted on CT likely from adhesions, has history of intraabdominal surgery - NPO, IV fluids monitor SMALL CELL LYMPHOMA - on chemo monitor other diagnoses and plan of care as per KAREN Gonzalez's notes Golden Clifton MD Subjective Pt. denies N/V or worsening abdominal pain. She notes she had small BM after enema yesterday. Review of Systems Constitutional: as per Subjective / HPI Eyes: as per Subjective / HPI Ear, Nose, Mouth, Throat: as per Subjective / HPI Respiratory: as per Subjective / HPI Cardiovascular: Additional Comments: CAD, S/P AAA repair. S/P CABG x3, HTN, thoracic aneuysm, Gastrointestinal: S/P cholecystectomy, hemorrhoidectomy Genitourinary: as per Subjective / HPI Musculoskeletal: as per Subjective / HPI Integumentary: as per Subjective / HPI Neurologic: as per Subjective / HPI Psychiatric: as per Subjective / HPI Endocrine: as per Subjective / HPI DM Hematologic / Lymphatic: lymphoma Allergy / Immunological: as per Subjective / HPI Physical Exam Constitutional: WD/WN, vitals as above well developed Eyes: PERRL, conjunctivae normal, anicteric sclerae ENMT: external ear and nose normal, oropharynx normal Neck: trachea midline, no thyromegaly Respiratory: normal respiratory effort, lungs clear to auscultation Cardiovascular: RRR, no murmur, no edema Rate/Rhythm: regular rate and regular rhythm Heart Sounds: normal S1 and normal S2 Gastrointestinal (Abdomen): normal bowel sounds, soft, nontender, no hepatosplenomegaly no distend, NT, BS + Musculoskeletal: no cyanosis or clubbing, extremities motor strength 5/5 Skin: no rashes, warm and dry Neurologic: patellar DTR's 2+ bilat, sensation intact Psychiatric: Orientation: alert and oriented x 3 Results & Data ([facility]) Vital Signs (Past 12 Hours) Vital Signs Temp Pulse Resp BP Pulse Ox 06/27/20 07:45 36.7 C 78 16 133/92 95 Laboratory Results Abnormal lab results 06/26/20 06/27/20 06/27/20 Range/Units 12:19 07:27 07:27 RBC 2.53 L (4.2-5.4) M/uL Hgb 9.6 L (12.0-16.0) g/dL Hct 29.0 L (37-47) % MCV 114.6 H (80-100) fL MCH 37.9 H (25-34) pg RDW Std Deviation 73.0 H (36.4-46.3) fL RDW Coeff of [facility] 17.8 H (11.5-14.5) % Chloride 110 H (98-107) mmol/L Anion Gap 2.0 L (3-11) BUN 26 H (7-18) mg/dl BUN/Creatinine Ratio 30.0 H (10-20) Glucose 107 H (70-99) mg/dl POC Glucose 131 H (70-99) mg/dl Phosphorus 2.1 L D (2.5-4.9) mg/dl
[2020-06-27 14:11] LABS: BUN Creatinine Ratio 26.2 (10-20); Calcium 8.4 mg/dl (8.5-10.1); Creatinine Clr Calc Pharmacy 32.8 ml/min; Est GFR (African American) 67.3; Magnesium 2.3 mg/dl (1.8-2.4); Phosphorus 1.7 mg/dl (2.5-4.9); Potassium 4.3 mmol/L (3.5-5.1)
[2020-06-27] MEDS ORDERED: Custom Central Pn 1,500 ML in TPN BAG 0 ML IV SCH (16:00)
--- NOTE | 2020-06-27 17:09 | Nephrology Progress Note ---
Date of Service June 27, 2020 Assessment & Plan (1) Metabolic alkalosis: metabolic alkalosis present as OP but mild, improved since admission initially, worse from 06/23-06/26, when she started PPN. now today this is improved again back toward where she was at admission. but her acid base disorder relates more to NGT losses which have picked up substantially since 06/23>>has 2.1-2.8 L NGT output daily since 06/23 and increasing >> prior to this had been less than 800 mL daily NGT output. concerning and driving losses and contraction alkalosis -- she is more than 4L negative since 06/23 -getting NS with 20 mEq/L potassium at 100 mL hourly during 06/26 and tolerated increased rate at 150 ML hourly overnight; IVF shut off today >> cont current holding fluids -daily bmp and q48 hr mag -cont strict I/O -do not see ingredients in PPN that could be adjusted to improve alkalosis -no indication for ABG which would not change mgt -surgery following and hoping to avoid surgical intervention given metastatic CA Admission and Anticipated Discharge Date Admission Date: June 19, 2020 Subjective NGT out; pt taking clears. IVF also off. feeling better; hopeful for d-c soon; remains on PPN Review of Systems Review of Systems: All systems reviewed & are unremarkable except as noted in HPI & below Physical Exam Constitutional: well developed and + thin Eyes: EOM intact bilaterally ENMT: Ears: no external ear abnormality Nose: no external nose abnormality Mouth: + dry oral mucous membranes Neck: no nuchal rigidity Respiratory: normal respiratory effort Auscultation: + diminished lung sounds Cardiovascular: Rate/Rhythm: regular rate and regular rhythm Extremities: no edema Gastrointestinal (Abdomen): Inspection/Auscultation: normal bowel sounds Percussion/Palpation: abdomen soft; abdomen nontender Musculoskeletal: Extremities: strength 5/5 throughout Skin: no rashes, warm and dry Psychiatric: A+Ox3, euthymic affect Results & Data ([facility]) Vital Signs (Past 12 Hours) Vital Signs Temp Pulse Resp BP Pulse Ox 06/27/20 16:05 36.3 C L 81 17 118/67 94 06/27/20 07:45 36.7 C 78 16 133/92 95 Laboratory Results 06/27/20 07:27 06/27/20 13:36
[2020-06-27] MEDS: PRAVASTATIN SOD 40 MG TAB PO SCH (21:12)
[2020-06-28] MEDS: LEVOTHYROXINE SODIUM 75 MCG TABLET PO SCH (05:41)
[2020-06-28 06:29] VITALS: BP 117/69; PULSE 77; TEMP 97.9; O2SAT 98
[2020-06-28 06:36] LABS: Hematocrit (blood only) 29.7 % (37-47); Hemoglobin 10.3 g/dL (12.0-16.0); Mean Corpuscular Hemoglobin 38.9 pg (25-34); Mean Corpuscular Hgb Conc 34.7 g/dL (32-36); Mean Corpuscular Volume 112.1 fL (80-100); Mean Platelet Volume 9.5 fL (7.4-10.4); Platelet Count 143 K/uL (130-400); RDW Coefficient of Variation 17.7 % (11.5-14.5); RDW Standard Deviation 71.3 fL (36.4-46.3); Red Blood Count 2.65 M/uL (4.2-5.4); White Blood Count 7.17 K/uL (4.8-10.8)
[2020-06-28 07:05] LABS: BUN Creatinine Ratio 25.3 (10-20); Calcium 8.8 mg/dl (8.5-10.1); Creatinine Clr Calc Pharmacy 36.9 ml/min; Est GFR (African American) 77.2; Est GFR (Non-African American) 66.6; Magnesium 2.3 mg/dl (1.8-2.4); Phosphorus 1.8 mg/dl (2.5-4.9); Potassium 4.4 mmol/L (3.5-5.1)
--- NOTE | 2020-06-28 07:52 | Hospitalist Progress Note ---
Date of Service June 28, 2020 Assessment & Plan (1) SBO (small bowel obstruction): -Patient presenting from home with reports of nausea and vomiting -In the ED, CT ABD/pelvis showing SBO -?Due to lymphoma and/or adhesions from prior abdominal surgeries General surgery on case +Flatus, +BMs Continue conservative management including bowel rest, IV fluids, PPN started 06/23 Fleet enemas Patient had 3 BMs yesterday, feeling well, NG tube removed in the morning yesterday, she has been on clear liquid diet and tolerating well, inquiring about going home Surgery recommends that patient stays on clear diet for 48 hours after discharge, and follow-up with surgery in 2 to 3 weeks, MiraLAX daily Metabolic Alkalosis - IVFs c K, Nephrology on case (2) Large B-cell lymphoma: -History of diffuse large B-cell lymphoma -Follows with Dr. Paulo Wood -Currently on chemotherapy receiving gemcitabine and oxaliplatin, last treatment 05/30 -Continue prophylactic Bactrim and acyclovir (3) Coronary artery disease: No cardiac symptoms -Continue nitrate and statin (4) HTN (hypertension): -Stable, continue isosorbide (5) Hypothyroidism: -Continue levothyroxine (6) DVT prophylaxis: -SCDs in the event patient needs invasive procedure Disposition Lives with family at home Anticipate discharge home medically stable Admission and Anticipated Discharge Date Admission Date: June 19, 2020 Subjective Patient is currently sitting up in bed, in no acute distress. Her daughter is at the bedside. NG tube removed yesterday morning, patient has been on clear liquid diet since yesterday, tolerating well. She reports having 3 bowel movements yesterday and feeling well, inquiring about going home. She denies any fevers, chills, chest pain, shortness of breath, abdominal pain, nausea or vomiting. We will replace IV phos, patient is in agreement to wait until electrolytes are replaced. Seen by surgery, they recommend 48 hours of clear liquid diet after discharge, and follow-up with surgery. Review of Systems Review of Systems: All systems reviewed & are unremarkable except as noted in HPI & below Constitutional: no fever and no chills Respiratory: no cough and no dyspnea Cardiovascular: no chest pain and no palpitations Gastrointestinal: no abdominal pain, no nausea and no vomiting Physical Exam Physical Exam: Constitutional: thin elderly female, sitting up in bed, in no acute distress Head: Normal cephalic, atraumatic Eyes: EOM intact bilaterally, anicteric sclera ENMT: Ears: no external ear abnormality Nose: no external nose abnormality Mouth:moist mucous membranes, no posterior pharyngeal erythema Neck: no nuchal rigidity, supple Respiratory: normal respiratory effort Auscultation: No wheezing, rhonchi or crackles Cardiovascular: Rate/Rhythm: regular rate and regular rhythm Extremities: no edema Gastrointestinal (Abdomen): Inspection/Auscultation: normal bowel sounds Percussion/Palpation: abdomen soft; abdomen nontender to palpation Musculoskeletal: With extremities spontaneously and without difficulty Skin: no rashes, warm and dry Psychiatric: A+Ox3, euthymic affect Results & Data Results & Data ([facility]) Vital Signs (Past 12 Hours) Vital Signs Temp Pulse Resp BP BP Pulse Ox 06/28/20 06:29 36.6 C 77 18 117/69 98 06/27/20 23:35 36.7 C 84 16 98/61 L 97 Laboratory Results 06/28/20 06/28/20 06/27/20 Range/Units 05:40 05:40 13:36 WBC 7.17 (4.8-10.8) K/uL RBC 2.65 L (4.2-5.4) M/uL Hgb 10.3 L (12.0-16.0) g/dL Hct 29.7 L (37-47) % MCV 112.1 H (80-100) fL MCH 38.9 H (25-34) pg MCHC 34.7 (32-36) g/dL RDW Std Deviation 71.3 H (36.4-46.3) fL RDW Coeff of [facility] 17.7 H (11.5-14.5) % Plt Count 143 (130-400) K/uL MPV 9.5 (7.4-10.4) fL Sodium 137 143 (136-145) mmol/L Potassium 4.4 4.3 (3.5-5.1) mmol/L Chloride 106 111 H (98-107) mmol/L Carbon Dioxide 26 27 (21-32) mmol/L Anion Gap 4.0 5.0 (3-11) BUN 21 H 24 H (7-18) mg/dl Creatinine 0.83 0.93 (0.6-1.2) mg/dl Est Cr Clr Drug Dosing 36.9 32.8 ml/min Est GFR ( Amer) 77.2 67.3 Est GFR (Non-Af Amer) 66.6 58.0 BUN/Creatinine Ratio 25.3 H 26.2 H (10-20) Glucose 91 136 H (70-99) mg/dl POC Glucose (70-99) mg/dl Calcium 8.8 8.4 L (8.5-10.1) mg/dl Phosphorus 1.8 L 1.7 L (2.5-4.9) mg/dl Magnesium 2.3 2.3 (1.8-2.4) mg/dl 06/27/20 06/27/20 Range/Units 12:02 07:27 WBC (4.8-10.8) K/uL RBC (4.2-5.4) M/uL Hgb (12.0-16.0) g/dL Hct (37-47) % MCV (80-100) fL MCH (25-34) pg MCHC (32-36) g/dL RDW Std Deviation (36.4-46.3) fL RDW Coeff of [facility] (11.5-14.5) % Plt Count (130-400) K/uL MPV (7.4-10.4) fL Sodium 141 (136-145) mmol/L Potassium 4.8 D (3.5-5.1) mmol/L Chloride 110 H (98-107) mmol/L Carbon Dioxide 30 (21-32) mmol/L Anion Gap 2.0 L (3-11) BUN 26 H (7-18) mg/dl Creatinine 0.86 (0.6-1.2) mg/dl Est Cr Clr Drug Dosing 35.4 ml/min Est GFR ( Amer) 73.9 Est GFR (Non-Af Amer) 63.8 BUN/Creatinine Ratio 30.0 H (10-20) Glucose 107 H (70-99) mg/dl POC Glucose 112 H (70-99) mg/dl Calcium 8.5 (8.5-10.1) mg/dl Phosphorus 2.1 L D (2.5-4.9) mg/dl Magnesium 2.1 (1.8-2.4) mg/dl Medications Administered Current Inpatient Medications Acetaminophen (Acetaminophen 325 Mg Tab) 650 mg PO Q4H PRN PRN Reason: pain/fever Stop: 07/19/20 11:58 Acyclovir (Acyclovir 400 Mg Tab) 400 mg PO BID [facility] Stop: 07/13/20 20:59 Last Admin: 06/27/20 21:12 Dose: 400 mg Documented by: Heparin Sodium (Porcine) (Heparin 100 Unit/Ml 5ml Flush) 5 ml FLUSH PRN PRN PRN Reason: Flush Stop: 07/24/20 01:07 Promethazine HCl 6.25 mg/ (Sodium Chloride) 50.25 mls @ 201 mls/hr IV Q6H PRN PRN Reason: Nausea And Vomiting Stop: 07/19/20 19:59 Last Infusion: 06/20/20 22:57 Dose: Infused Documented by: Dextrose (D10w) 1,000 mls @ 0 mls/hr IV .Q0M PRN PRN Reason: protocol (see label comments) Stop: 07/23/20 11:37 Nutrition (Parenteral) 1,500 (ml/ TPN BAG) 1,500 mls @ 41.8 mls/hr IV .Q24H [facility]; Protocol Stop: 06/28/20 15:59 Last Infusion: 06/27/20 22:08 Dose: 41.8 mls/hr Documented by: Sodium Phosphate 15 mmol/ (Sodium Chloride) 255 mls @ 88 mls/hr IV ONE ONE Stop: 06/28/20 10:53 Isosorbide Mononitrate (Isosorbide Kidder Extended Rel 30 Mg Tabcr) 15 mg PO DAILY [facility] Stop: 07/20/20 08:59 Last Admin: 06/27/20 09:14 Dose: 15 mg Documented by: Levothyroxine Sodium (Levothyroxine Sodium 75 Mcg Tablet) 75 mcg PO DAILYBB [facility] Stop: 07/20/20 06:29 Last Admin: 06/28/20 05:41 Dose: 75 mcg Documented by: Magnesium Hydroxide (Magnesium Hydroxide Susp 30 Ml Udc) 30 ml PO DAILY PRN PRN Reason: Constipation Stop: 07/20/20 19:38 Last Admin: 06/27/20 06:22 Dose: 30 ml Documented by: Miscellaneous Information (Tpn/Ppn Consult Pharmacy) 1 ea N/A UD PRN PRN Reason: Consult Stop: 07/23/20 11:58 Ondansetron HCl (Ondansetron Inj 2 Mg/Ml 2 Ml Vial) 4 mg IV Q6H PRN PRN Reason: nausea Stop: 07/19/20 11:58 Last Admin: 06/20/20 19:18 Dose: 4 mg Documented by: Phenol (Chloraseptic 1.4% Soln 180 Ml Btl) 1 sprays MT Q2H PRN PRN Reason: throat discomfort Stop: 07/21/20 05:24 Pravastatin Sodium (Pravastatin Sod 40 Mg Tab) 80 mg PO [facility] Stop: 07/19/20 20:59 Last Admin: 06/27/20 21:12 Dose: 80 mg Documented by: Trimethoprim/Sulfamethoxazole (Sulfamethoxazole/Trimethoprim Ds 800/160mg Tab) 1 tab PO [id number] [facility] Stop: 07/19/20 12:29 Last Admin: 06/26/20 09:31 Dose: 1 tab Documented by:
[2020-06-28] MEDS ORDERED: SODIUM PHOSPHATE 15 MMOL in SODIUM CHLORIDE 0.9% 250 ML IV ONE (08:00)
[2020-06-28] MEDS: ACYCLOVIR 400 MG TAB PO SCH (10:23)
[2020-06-28] MEDS: ISOSORBIDE MONO EXTENDED REL 30 MG TABCR PO SCH (10:23)
[2020-06-28] MEDS: SULFAMETHOXAZOLE/TRIMETHOPRIM DS 800/160MG TAB PO SCH (10:23)
--- NOTE | 2020-06-28 10:27 | Surgery Progress Note ---
Date of Service pt is doing better, passed 3 times BM yesterday, pt denies abdominal pain, no nausea, no vomiting, she tolerated clear diet, June 28, 2020 Assessment & Plan (1) SBO (small bowel obstruction): vitals stable, afebrile no leukocytosis no peritonitis or rigidity NGT with 600 cc last shift and 1150 cc in last 24 hours (moderate amount of this was contrast for the SBFT yesterday) +flatus only small amount no bowel movement yet SBFT showing persistent small bowel distention but contrast reached colon at 8 hours consistent with at least a partial obstruction not complete obstruction Plan: would like to avoid surgery given metastatic disease on CT scan and prior surgeries. Reviewed outpatient PET scan within [facility] records in May no evidence of metastatic disease in small bowel. Sees dr. Wood, currently undergoing palliative chemotherapy. Continue NGT to LIS, NPO for bowel rest can have small amount of ice chips. Milk of Magnesia today via NGT recommend peripheral nutrition encourage ambulating hallway as much as possible to increase GI motility may need new bowel regimen for chronic constipation if no signs of complete obstruction as patient takes stool softener daily and require milk of magnesia if unable to have bowel movement in [address] Ojeda covering over weekend. Dr. Scott has seen patient and agrees with above. 06/26/2020 2:20PM stable, pt is on PPN, update to pt's daughter continue conservative treatment, repeat KUB in am, will F/U 06/27/2020, 11:15AM passed BM, but today KUB- SBO, pull out NGtube try clear diet, continue conservative treatment now, pt may needs surgery treatment if pt develops abdominal pain, nausea, vomiting,pt and her daughter understood, they agree with the treatment plan, I answered all questions, will F/U 06/28/2020, 10:24AM passed BM, no abdominal pain, pt wants to go home today, pt can be discharged home today, Full liquid diet for 2 days, miralax once a day, I instructed pt and her daughter, pt should come back to hospital if she develops abdominal pain, vomiting, they understood, I answered all questions, D/W hospitalist. F/U ct 2- 3 weeks, Admission and Anticipated Discharge Date Admission Date: June 19, 2020 Supervising Physician Co-Signing Physician Notes Attending Addendum: care coordinated with KAREN Gonzalez please refer to her notes for full details, I agree with her notes patient seen and examined, records reviewed by myself as well on exam, patient seen resting in bed, comfortable denies abdominal pain- comes in waves has mild nausea (+) flatus (+) BM at the ER, loose no other symptoms VS noted and reviewed oriented x 3, not in distress, speaks in sentences with no effort nor accessory muscle use normal rate, regular rhythm, no murmurs clear breath sounds bilaterally (+) BS, non distended, soft, nontender no bipedal edema, erythema, warmth no neuro deficits WBC 4.7 Hg 10[address] abdomen/pelvis: IMPRESSION: 1. CT findings indicative of a small bowel obstruction. No pneumatosis. No portal venous gas. 2. Low volume ascites 3. Multiple pulmonary nodules consistent with metastatic disease/lymphoma 4. 8 cm hepatic mass likely representing metastatic disease/lymphoma. 5. Examination limited due to the lack of intravenous and oral contrast. ASSESSMENT AND PLAN SMALL BOWEL OBSTRUCTION - no mass noted on CT likely from adhesions, has history of intraabdominal surgery - NPO, IV fluids monitor SMALL CELL LYMPHOMA - on chemo monitor other diagnoses and plan of care as per KAREN Gonzalez's notes Golden Clifton MD Subjective Pt. denies N/V or worsening abdominal pain. She notes she had small BM after enema yesterday. Review of Systems Constitutional: as per Subjective / HPI Eyes: as per Subjective / HPI Ear, Nose, Mouth, Throat: as per Subjective / HPI Respiratory: as per Subjective / HPI Cardiovascular: Additional Comments: CAD, S/P AAA repair. S/P CABG x3, HTN, thoracic aneuysm, Gastrointestinal: S/P cholecystectomy, hemorrhoidectomy Genitourinary: as per Subjective / HPI Musculoskeletal: as per Subjective / HPI Integumentary: as per Subjective / HPI Neurologic: as per Subjective / HPI Psychiatric: as per Subjective / HPI Endocrine: as per Subjective / HPI DM Hematologic / Lymphatic: lymphoma Allergy / Immunological: as per Subjective / HPI Physical Exam Constitutional: WD/WN, vitals as above well developed Eyes: PERRL, conjunctivae normal, anicteric sclerae ENMT: external ear and nose normal, oropharynx normal Neck: trachea midline, no thyromegaly Respiratory: normal respiratory effort, lungs clear to auscultation Cardiovascular: RRR, no murmur, no edema Rate/Rhythm: regular rate and regular rhythm Heart Sounds: normal S1 and normal S2 Gastrointestinal (Abdomen): normal bowel sounds, soft, nontender, no hepatosplenomegaly NT, ND. BS + Musculoskeletal: no cyanosis or clubbing, extremities motor strength 5/5 Skin: no rashes, warm and dry Neurologic: patellar DTR's 2+ bilat, sensation intact Psychiatric: Orientation: alert and oriented x 3 Results & Data ([facility]) Vital Signs (Past 12 Hours) Vital Signs Temp Pulse Resp BP BP Pulse Ox 06/28/20 06:29 36.6 C 77 18 117/69 98 06/27/20 23:35 36.7 C 84 16 98/61 L 97 Laboratory Results Abnormal lab results 06/27/20 06/27/20 06/28/20 Range/Units 12:02 13:36 05:40 RBC (4.2-5.4) M/uL Hgb (12.0-16.0) g/dL Hct (37-47) % MCV (80-100) fL MCH (25-34) pg RDW Std Deviation (36.4-46.3) fL RDW Coeff of [facility] (11.5-14.5) % Chloride 111 H (98-107) mmol/L BUN 24 H 21 H (7-18) mg/dl BUN/Creatinine Ratio 26.2 H 25.3 H (10-20) Glucose 136 H (70-99) mg/dl POC Glucose 112 H (70-99) mg/dl Calcium 8.4 L (8.5-10.1) mg/dl Phosphorus 1.7 L 1.8 L (2.5-4.9) mg/dl 06/28/20 Range/Units 05:40 RBC 2.65 L (4.2-5.4) M/uL Hgb 10.3 L (12.0-16.0) g/dL Hct 29.7 L (37-47) % MCV 112.1 H (80-100) fL MCH 38.9 H (25-34) pg RDW Std Deviation 71.3 H (36.4-46.3) fL RDW Coeff of [facility] 17.7 H (11.5-14.5) % Chloride (98-107) mmol/L BUN (7-18) mg/dl BUN/Creatinine Ratio (10-20) Glucose (70-99) mg/dl POC Glucose (70-99) mg/dl Calcium (8.5-10.1) mg/dl Phosphorus (2.5-4.9) mg/dl
[2020-06-28] MEDS ORDERED: POLYETHYLENE (MIRALAX) 17 GM PACK PO SCH (10:45)
--- NOTE | 2020-06-28 13:31 | Discharge Summary ---
Date of Service June 28, 2020 Admission HPI Per Admitting Provider 79-year-old female with PMH CAD s/p CABG, AAA s/p repair, diffuse large B-cell lymphoma on chemo, hypothyroidism, and other problems listed below who presents the ED for evaluation of nausea and vomiting. Patient reports after having dinner last evening, she developed nausea. Throughout the night, she had several episodes of vomiting. She denies hematemesis or coffee-ground emesis. Reports she also notes increasing abdominal distention. Has had some right side abdominal pain as well. Reports normal bowel movement last evening as well as a small bowel movement while in the ED. No fevers or chills. Denies chest pain or shortness of breath. No lightheadedness, dizziness, diaphoresis, syncopal events. Denies urinary symptoms. CT ABD/pelvis shows signs of SBO. Patient was given IV Zofran, IV promethazine, IVF. Admission Exam Per Admitting Provider Constitutional: WD/WN, vitals as above Eyes: PERRL, conjunctivae normal, anicteric sclerae ENMT: external ear and nose normal, oropharynx normal Respiratory: normal respiratory effort, lungs clear to auscultation Cardiovascular: Rate/Rhythm: regular rate and regular rhythm Vessels: normal peripheral pulses Extremities: no edema Gastrointestinal (Abdomen): Inspection/Auscultation: + abdomen distended; + abnormal bowel sounds (Hypoactive) Percussion/Palpation: + abdomen tender (Mild, right-sided abdomen) and abdomen soft; no guarding, abdomen not rigid and no hepatosplenomegaly Musculoskeletal: no cyanosis or clubbing, extremities motor strength 5/5 Skin: no rashes, warm and dry Neurologic: PERRL, EOMI, accommodation nl, no face palsy, no dysarthria Psychiatric: A+Ox3, euthymic affect Principal Diagnosis Small bowel obstruction Discharge Exam Constitutional: thin elderly female, sitting up in bed, in no acute distress Head: Normal cephalic, atraumatic Eyes: EOM intact bilaterally, anicteric sclera ENMT: Ears: no external ear abnormality Nose: no external nose abnormality Mouth:moist mucous membranes, no posterior pharyngeal erythema Neck: no nuchal rigidity, supple Respiratory: normal respiratory effort Auscultation: No wheezing, rhonchi or crackles Cardiovascular: Rate/Rhythm: regular rate and regular rhythm Extremities: no edema Gastrointestinal (Abdomen): Inspection/Auscultation: normal bowel sounds Percussion/Palpation: abdomen soft; abdomen nontender to palpation Musculoskeletal: With extremities spontaneously and without difficulty Skin: no rashes, warm and dry Psychiatric: A+Ox3, euthymic affect Discharge Data Allergies Allergy/AdvReac Type Severity Reaction Status Date / Time Penicillins Allergy Intermediate TONGUE Verified 06/19/20 08:42 FEELS FUZZY amlodipine Allergy Mild WEAKNESS, Verified 06/19/20 08:42 DIZZINESS & SOB doxycycline AdvReac Intermediate Gastrointestinal Verified 06/19/20 08:42 Upset fluticasone AdvReac Intermediate advair -- Verified 06/19/20 08:42 "PAIN IN MY HEART" alendronate sodium AdvReac Mild GI upset Verified 06/19/20 08:42 carvedilol AdvReac Mild WEAKNESS, Verified 06/19/20 08:42 DIZZINESS gemfibrozil AdvReac Mild MUSCLE Verified 06/19/20 08:42 WEAKNESS hydralazine AdvReac Mild WEAKNESS, Verified 06/19/20 08:42 DIZZINESS isosorbide [From Imdur] AdvReac Mild pain in Verified 06/19/20 08:42 heart, racing heart metoprolol AdvReac Mild WEAKNESS, Verified 06/19/20 08:42 DIZZINESS rosuvastatin AdvReac Mild Muscle pain Verified 06/19/20 08:42 salmeterol AdvReac Mild advair -- Verified 06/19/20 08:42 "PAIN IN MY HEART" [id number] Reductase AdvReac Mild MUSCLE Verified 06/19/20 08:42 Inhibitor WEAKNESS Consultations 06/19/20 10:03 ED Decision to Admit Stat 06/19/20 11:59 Consult Case Management - Discharge Planning Routine Consult General Surgery Routine 06/26/20 08:26 Consult Nephrology Routine Ordered Studies 06/19/20 08:16 CT abd pelvis wo con Stat IMPRESSION: 1. CT findings indicative of a small bowel obstruction. No pneumatosis. No portal venous gas. 2. Low volume ascites 3. Multiple pulmonary nodules consistent with metastatic disease/lymphoma 4. 8 cm hepatic mass likely representing metastatic disease/lymphoma. 5. Examination limited due to the lack of intravenous and oral contrast. 06/22/20 09:39 FL small bowel follow through Routine Hospital Course (1) SBO (small bowel obstruction): -Patient presenting from home with reports of nausea and vomiting -In the ED, CT ABD/pelvis showing SBO -?Due to lymphoma and/or adhesions from prior abdominal surgeries General surgery on case +Flatus, +BMs Continue conservative management including bowel rest, IV fluids, PPN started 06/23 Fleet enemas Patient had 3 BMs yesterday, feeling well, NG tube removed in the morning yesterday, she has been on clear liquid diet and tolerating well, inquiring about going home Surgery recommends that patient stays on clear diet for 48 hours after discharge, and follow-up with surgery in 2 to 3 weeks, MiraLAX daily Metabolic Alkalosis - IVFs c K, Nephrology on case (2) Large B-cell lymphoma: -History of diffuse large B-cell lymphoma -Follows with Dr. Paulo Wood -Currently on chemotherapy receiving gemcitabine and oxaliplatin, last treatment 05/30 -Continue prophylactic Bactrim and acyclovir (3) Coronary artery disease: No cardiac symptoms -Continue nitrate and statin (4) HTN (hypertension): -Stable, continue isosorbide (5) Hypothyroidism: -Continue levothyroxine (6) DVT prophylaxis: -SCDs in the event patient needs invasive procedure Disposition Lives with family at home Anticipate discharge home medically stable Total Time Total Time Spent Total Time Spent (In Minutes): 40 Total Time Includes: Examination of the Patient, Discharge Planning, Medication Reconciliation and Communication With Other Providers Discharge Plan Discharge Items Patient Disposition: Home - Self-Care Reason For Visit: SBO Discharge Diagnosis: Small bowel obstruction Condition on Discharge: Good Activity: Per Instructions section Non-emergency contact: Primary Care Provider and Surgeon Call non-emergency contact if: you have any medication questions and your symptoms worsen Follow-up/Referrals: Raza Rodriguez DO [Primary Care Provider] - 07/03/20 3:00 pm (Date & Time 07/03/2020 3:00 PM Provider Raza Rodriguez DO Department General Internal Medicine [facility] ) Diet: Clear liquid Addtl Attending Provider Instructions: Per surgery recommendations, continue full liquid diet for next 2 days. Then recommend low fiber diet. Use MiraLAX once a day. If you develop abdominal pain, vomiting, you will need to present back to the hospital. Follow-up with general surgery in 2 to 3 weeks, make an appointment at phone # . Follow-up with your primary care doctor, on July 03. We were not giving you your iron supplement while in the hospital as it may cause constipation. Discuss with your primary care doctor when it is reasonable to restart your iron supplement. Pending Studies at Discharge: No Stand-Alone Forms: [facility], Smoking Cessation Medications and DC Order Prescriptions: Continued levothyroxine 75 mcg capsule 75 mcg PO QAM RF: 0 multivitamin Tablet 1 tab PO HS RF: 0 nitroglycerin 0.3 mg Tablet, Sublingual 1 dose Sublingual DIRECTED PRN (Reason: CP) RF: 0 pravastatin 80 mg Tablet 80 mg PO HS RF: 0 cranberry 500 mg Capsule 500 mg PO QAM RF: 0 glucosamine HCl 1,500 mg Tablet 1,500 mg PO BID RF: 0 coQ10 (ubiquinol) 100 mg Capsule 100 mg PO QAM RF: 0 docusate sodium [Colace] 100 mg Capsule 200 mg PO HS RF: 0 Probiotic 1 tab PO QAM RF: 0 prochlorperazine maleate [Compazine] 10 mg Tablet 10 mg PO Q8H PRN (Reason: Nausea And Vomiting) RF: 0 acyclovir 400 mg Tablet 400 mg PO BID RF: 0 ondansetron 8 mg Tablet,Disintegrating 8 mg PO Q8H PRN (Reason: Nausea And Vomiting) RF: 0 isosorbide mononitrate [Imdur] 30 mg Tablet Extended Release 24 Hr 15 mg PO DAILY RF: 0 sulfamethoxazole-trimethoprim [Bactrim DS] 800-160 mg Tablet 1 tab PO MOWEFR RF: 0 Discontinued ferrous sulfate [iron] 325 mg (65 mg iron) Tablet 325 mg PO HS RF: 0 Discharge Orders: Discharge Order (Routine); Ordered 06/28/20 Ordered By: Francois Cardenas Admission Data Admit Date/Time: 06/19/20 10:33 Attending Provider: Francois Cardenas Admit Provider: Golden Clifton Primary Care Provider: Raza Rodriguez Other Providers: Golden Clifton ; Radha Scott ; Katerina Sagastume ; Aly Mckeon Other Interventions: Discharge Summary Assessment (RN) Last Done: 06/28/20 12:37
[2020-06-28] MEDS ORDERED: Custom Central Pn 1,500 ML in TPN BAG 0 ML IV SCH (16:00)
== END 2020-06-28 14:45 | disposition home or self-care (01) | DRG 389 ==
LOC: ED 07:51 → 3W 10:33 → SUATTDRO 10:33 → 3W 11:20